=== PATIENT | male | born 1965 | race Caucasian/White ===

== ENCOUNTER → 2018-09-21 16:25 | Outpatient (CLI) | payer OTHER, SELFPAY ==
[2018-09-21 17:21] LABS: Absolute Lymphocyte Count 2.17 X10^3/ul (0.83-4.51); Absolute Neutrophil Count 7.6 X10^3/uL (2.0-7.7); Basophil# 0.08 X10^3/uL; Basophil% 0.7 % (0-1); Eosinophil# 0.47 X10^3/uL; Eosinophils% 4.3 % (0-5); Hematocrit 45.3 % (40-54); Hemoglobin 14.8 g/dl (13.0-16.5); Lymphocyte # 2.17 X10^3/ul (4.0); Lymphocyte % 19.7 % (19-41); Mean Corp Hgb Conc 32.7 g/gl (32-36); Mean Corpuscular Hgb 30.1 pg (27.0-32.0); Mean Corpuscular Volume 92.3 fL (80-94); Mean Platelet Vol. 10.5 fl (6.2-12.0); Monocyte# 0.66 X10^3/uL; Neutrophil # 7.63 X10^3/uL (2.7-7.7); Neutrophil % 69.2 % (47-70); POSITIVE COUNT NO; POSITIVE DIFFERENTIAL NO; POSITIVE MORPHOLOGY NO; Platelet Count 221 K/mm3 (150-450); RBC Distribution Width SD 51.2 fl (35.1-43.9); Red Blood Count 4.91 M/mm3 (4.6-6.2)
[2018-09-21 17:40] LABS: Vitamin B12 > 2000 pg/mL (211-911)
[2018-09-21 17:41] LABS: ALB/GLOB Ratio 0.9 RATIO (0.9-2.4); AST(SGOT) 13 U/L (15-37); Alanine Aminotransfer ALT/SGPT 25 U/L (16-61); Albumin, Serum 3.7 g/dL (3.2-5.0); Alkaline Phosphatase 81 U/L (45-117); Anion Gap 8 (5-15); BUN 20 mg/dL (7-18); BUN/Creat Ratio 23.6 RATIO (10-20); Calcium,Total 8.6 mg/dL (8.5-10.1); Chloride 105 mmol/L (98-107); Cholesterol 130 mg/dL (200); Creatinine, Serum 0.85 mg/dL (0.70-1.30); EST Glomerular Filtration Rate 100 mL/min (>60); Est Glom Filt Rate - Afr Amer 121 mL/min (>60); Globulin 4.3 g/dL (2.2-4.2); Glucose 138 mg/dL (74-106); High Density Lipoprotein 34 mg/dL; Potassium 3.9 mmol/L (3.5-5.1); Sodium Level 137 mmol/L (136-145); Thyroid Stim Hormone (TSH) 1.12 uIU/mL (0.358-3.74); Triglycerides 80 mg/dL; Very Low Density Lipoprotein 16 mg/dL (5-40)
== END ==
PROVIDERS: Family Provider Family Medicine; PCP Family Medicine; Visit Provider Family Medicine
DX: E11.9 Type 2 diabetes mellitus without complications (principal); G62.9 Polyneuropathy, unspecified; R03.0 Elevated blood-pressure reading, without diagnosis of hypertension; E66.9 Obesity, unspecified; E11.621 Type 2 diabetes mellitus with foot ulcer; L97.509 Non-pressure chronic ulcer of other part of unspecified foot with unspecified severity
CPT/HCPCS: 36415; 80053; 80061; 82607; 84443; 85025

== ENCOUNTER 2018-09-30 14:54 | Outpatient (RCR) | payer OTHER, SELFPAY | END 2018-10-15 23:59 | LOC: WC 14:54 | PROVIDERS: Family Provider Family Medicine; PCP Family Medicine; Visit Provider Nurse Practitioner Family | DX: Z09 Encounter for follow-up examination after completed treatment for conditions other than malignant neoplasm (principal) ==

== ENCOUNTER 2018-09-30 16:05 | Emergency (ER) | payer OTHER, SELFPAY ==
[2018-09-30 16:07] VITALS: BP 151/111; PULSE 111; RESP 22; RESP 24; TEMP 36.6; O2SAT 94; O2SAT 97; BMI 51.7
--- NOTE | 2018-09-30 16:38 | RAD_ITS ---
STUDY: X-RAY - RIGHT FOOT CLINICAL: Male, 53 years old. Right great toe has turned blue/purple, diabetic, multiple wounds. TECHNIQUE: 3 view(s) of the foot. COMPARISON: None. FINDINGS: There is a plantar calcaneal spur. Normal talus and remaining tarsal bones. Normal visualized subtalar, talonavicular, calcaneocuboid, tarsal and 2-5 tarsometatarsal articulations. There is osteoarthritic degenerative narrowing of the first tarsometatarsal joint space. Normal metatarsi. Normal metatarsophalangeal joint of the great toe. Normal tibial and fibular sesamoid bones. Normal interphalangeal joint of the great toe. Normal phalanges of the great toe. Normal second through fifth metatarsophalangeal joints. Mild deformity at the base of the fifth proximal phalanx suggest old healed fracture. Otherwise, normal interphalangeal joints and phalanges of the lesser toes. There is borderline soft tissue swelling at the forefoot. There is no demonstrated osseous destructive lesion or acute fracture. RAD/Foot min 3 Views IMPRESSION: 1. No acute osseous abnormality of the right foot. 2. Old healed fracture deformity at the base of the fifth proximal phalanx. 3. Degenerative narrowing of the first tarsometatarsal joint. Electronically Signed: Reji Collins MD at 17:43 EST , Service support ,
[2018-09-30 17:01] LABS: Absolute Lymphocyte Count 1.49 X10^3/ul (0.83-4.51); Absolute Neutrophil Count 8.7 X10^3/uL (2.0-7.7); Basophil# 0.07 X10^3/uL; Basophil% 0.6 % (0-1); Eosinophil# 0.38 X10^3/uL; Eosinophils% 3.3 % (0-5); Lymphocyte # 1.49 X10^3/ul (4.0); Lymphocyte % 12.8 % (19-41); Mean Corp Hgb Conc 33.3 g/gl (32-36); Mean Corpuscular Hgb 30.5 pg (27.0-32.0); Mean Corpuscular Volume 91.6 fL (80-94); Mean Platelet Vol. 10.5 fl (6.2-12.0); Monocyte# 0.93 X10^3/uL; Neutrophil # 8.74 X10^3/uL (2.7-7.7); Platelet Count 231 K/mm3 (150-450); RBC Distribution Width CV 14.9 % (11.6-14.6); RBC Distribution Width SD 48.5 fl (35.1-43.9); Red Blood Count 4.91 M/mm3 (4.6-6.2); White Blood Count 11.6 K/mm3 (4.4-11.0)
[2018-09-30 17:03] LABS: POSITIVE COUNT NO; POSITIVE DIFFERENTIAL NO; POSITIVE MORPHOLOGY NO
[2018-09-30 17:07] LABS: Erythrocyte Sedimentation Rate 29 mm/hr (0-20)
[2018-09-30 17:09] LABS: Anion Gap 8 (5-15); BUN 18 mg/dL (7-18); BUN/Creat Ratio 18.8 RATIO (10-20); Calcium,Total 8.9 mg/dL (8.5-10.1); Chloride 106 mmol/L (98-107); Creatinine, Serum 0.96 mg/dL (0.70-1.30); EST Glomerular Filtration Rate 87 mL/min (>60); Est Glom Filt Rate - Afr Amer 105 mL/min (>60); Estimated Creatinine Clearance 109.57 ml/min; Glucose 132 mg/dL (74-106); Potassium 3.8 mmol/L (3.5-5.1); Sodium Level 140 mmol/L (136-145)
[2018-09-30] MEDS: levoFLOXacin IV 750 MG/150 ML BAG 100 MG IV (18:23)
--- NOTE | 2018-09-30 18:24 | CON.PCM_ITS ---
Reason for Consult Date of Consultation: 09/30/18 Reason for Consultation: Right foot ulcers, possible infection, PVD History of Present Illness: The patient is a 53 year old gentleman with history of diabetes presented to the ER today for nonhealing right foot/ankle ulcerations with infection. Patient relates he sustained goldman on the right foot and ankle ~1 month ago, states they have not been healing. He saw Dr. Medina last week, was referred to the wound center. Today we saw the wound center, and was sent to the ER for further evaluation. It was noted in the ER he had ischemic like ulcerations, and I was called by Dr. Bolden for further evaluation. It does not appear patient has been taking good care of the wounds. Patient relates his blood sugars are controlled, relates his last ha1c was in the 5s. He relates he is a smoker, smokes 1 ppd since he was a teenager. He relates he has cramping in legs when he walks, and also at night. He relates he has no pain to the wound sites. He lives alone, but does have a sister which lives close to him. Patient does relate to history of necrotizing fascitis in his groin in the past. Past Medical History Allergies Penicillins [PCN] Allergy (Verified 09/30/18 16:05) Anaphylaxis Smoking Status: Current every day smoker Review of Systems Constitutional: Denies: Chills, Fever Cardiovascular: Denies: Chest Pain, Chest Pressure, Chest Tightness Gastrointestinal: Denies: Nausea, Vomiting Musculoskeletal: Reports: Leg Pain - cramping when walking Skin: Reports: Wounds Neurological: Reports: Numbness - Physical Exam General: Alert, Oriented x3, Cooperative, No apparent distress Extremities: Capillary Refill Less than 3 Seconds, No Calf Tenderness, Cyanosis, Diminished Peripheral Pulses, - - Right foot: Ischemic appearing ulcerations dorsal hallux, dorsal medial midfoot, and lateral ankle with dry eschars present, there is some maloder noted, there is diffuse erythema / rubor diffcult to tell if this is cellulitis vs ischemic rubor, skin is dry and atrophic in appearance, hallux is a purple color but does esteban, DP and PT pulses nonpalpable, DP pulse is audible via hand held doppler (monophasic at this time), unable to find the PT pulse via doppler. Left foot with no evidenceof ischemia or ulcerations, no cellulitis, no maloder, no blisters left foot. Toenails are thickened, dystrophic, and yellow 1-5 bilateral. Sensation diminished bilateral foot, muscle mass and tone within normal limits bilateral foot/ankle, with muscle strength intact, no pain on palpation or pain on ROM to the foot/ankle bilateral. Musculoskeletal: No Tenderness to Palpation of Joints or Extremities - bilateral foot/ankle. Psych/Mental Status: Normal Affect, Alert and oriented to time, place, person, mood and affect - Resting comfortably in bed. Vital Signs Temp Pulse Resp BP Pulse Ox 97.9 F 111 H 24 H 151/111 H 97 09/30/18 16:07 09/30/18 16:07 09/30/18 16:07 09/30/18 16:07 09/30/18 16:07 Oxygen Delivery Method Room Air Weight: 197.766 kg Body Mass Index (BMI) 51.7 Laboratory Tests Past 24 Hrs 09/30/18 09/30/18 16:48 16:48 WBC 11.6 H RBC 4.91 Hgb 15.0 Hct 45.0 MCV 91.6 MCH 30.5 MCHC 33.3 RDW 14.9 H RDW Differential 48.5 H Plt Count 231 MPV 10.5 Immature Gran % (Auto) 0.300 Neut % (Auto) 75.0 H Lymph % (Auto) 12.8 L Overton % (Auto) 8.0 Eos % (Auto) 3.3 Baso % (Auto) 0.6 Absolute Neuts (auto) 8.7 H Absolute Lymphs (auto) 1.49 Total Counted Not Reportable ESR 29 H Sodium 140 Potassium 3.8 Chloride 106 Carbon Dioxide 26.0 Anion Gap 8 BUN 18 Creatinine 0.96 Estim Creat Clear Calc 109.57 Est GFR (MDRD) Af Amer 105 Est GFR (MDRD) Non-Af 87 BUN/Creatinine Ratio 18.8 Glucose 132 H Calcium 8.9 Assessment/Plan Multiple ischemia ulcerations right foot/ankle w/ cellulitis/infection Peripheral Arterial Disease of the lower extremity Diabetes with peripheral neuropathy Chronic Tobacco Use Reviewed diagnostic date. Reviewed right foot xrays, there is no gas in the tissues. WBC is slightly elevated, there is some maloder to the wound sites, and there is concern for ischemia. The ischemia appears more chronic in nature but appears to be resulting in nonhealing wounds and now showing evidence of infection, his right great toe is also purple, ischemia may be turning more acute as well. Due to this recommend patient be admitted for further workup / evaluation, do not want to delay on this and recommended vascular surgery consultation for further evaluation. I called Dr. Hernandez, he is out of town. I did speak with Dr. Bolden about this, and patient will be transferred to outside hospital for further evaluation and management of this. Discussed with patient, and he agreed with this.
[2018-09-30 18:25] VITALS: BP 130/73; PULSE 93; RESP 20; TEMP 37.1; O2SAT 96
[2018-09-30 20:43] VITALS: BP 149/69; PULSE 96; RESP 18; O2SAT 96
[2018-09-30 21:09] VITALS: PULSE 94; RESP 18; O2SAT 96
--- NOTE | 2018-09-30 21:16 | ED.VISSUMM ---
- ER Visit Summary Date of Service: 09/30/18 Chief Complaint: Wound to right foot History of Present Illness: The patient is a [address] Medina. He has a history of type 2 diabetes and diabetic neuropathy. Reports that one month ago he was cooking and burned his right foot with grease. He did not seek medical attention until approximately a week ago when he saw Dr. Medina. He was referred to the wound clinic and saw them for the first time today. They were concerned because his great toe was white and if sent him to the emerge part for evaluation. On arrival to the emergency department the patient's toe is now purple. Patient reports that he has an occasional sharp pain that lasts seconds at a time. Serial 10 and worst and is pain-free currently. Is worsened by wearing a shoe. Is relieved by gabapentin. He denies any constitutional symptoms. No fever, chills, nausea, or vomiting. When asked about symptoms of claudication the patient does report that he has pain in his calves with ambulation for approximately 1 year. He does report that it seems to be worsening. He denies any calf or foot pain at this time. Physical Examination: Vitals: Stable. Afebrile. General: Well-nourished and well-developed. Head: Normocephalic atraumatic. Neck: Supple, no lymphadenopathy. No JVD. Nontender. Cardiovascular: Regular rate and rhythm. No murmurs. Respiratory: No respiratory distress. Clear to auscultation bilaterally. Abdominal: Soft, nontender, nondistended, normal bowel sounds. No guarding, rebound, or peritoneal signs. Back: Nontender. Extremities: There is an approximately 2 cm deep ulcer to the dorsum of his right great toe and just proximal to the head of his first metatarsal. There is slight surrounding erythema. He has a violaceous color to his great toe. There is no induration or fluctuance. There is a slight malodorous odor. Is approximately 4 cm more superficial ulcer to the right lateral malleolus. He has no palpable or dopplerable dorsalis pedis or posterior tibial pulses bilaterally. There is approximately 3-second capillary refill. Skin: Normal color, no rash. Neurologic: Alert and oriented ?3. Cranial nerves II through XII are intact. Normal strength and sensation. Psych: Normal affect. Test Results: CBC is more for white count 11.6, 7 neutrophils 75, lymphocytes 13. ESR is 29. Chem-7 more for glucose 132. Clinical Impression(s) from Imaging Studies Foot X-Ray 09/30/18 16:38 IMPRESSION: 1. No acute osseous abnormality of the right foot. 2. Old healed fracture deformity at the base of the fifth proximal phalanx. 3. Degenerative narrowing of the first tarsometatarsal joint. Electronically Signed: Reji Collins MD at 17:43 EST , Service support , Emergency Department Course and Treatment: Patient had an IV placed. He is penicillin allergic. He was given Levaquin, vancomycin, and Flagyl IV. He is resting comfortably. Treatment Plan: Patient was discussed with Dr. Babin who was in-house and saw the patient the emergency department. He is attempted to contact Dr. Hernandez without success. The patient certainly needs to see a vascular surgeon. He needs to be transferred and is asked for transfer to [facility]. He was accepted there. Disposition: Transferred in improved condition. Impression: 1. Diabetes mellitus. 2. Ulcer right great toe. 3. Ulcer right foot. 4. Ulcer right ankle. 5. Peripheral arterial disease. This note was generated with [employer] dictation software. It may contain incorrect words, spelling, and punctuation that were not noted in review of the chart prior to signing ED Disposition - Plan for ED Patient: Disposition: [facility] Chief Complaint: Wound Referrals: Yohan Medina DO [Primary Care Provider] -
== END 2018-09-30 21:18 | disposition short-term general hospital (02) ==
LOC: ED 17:01
PROVIDERS: Emergency Provider Emergency Medicine; Family Provider Family Medicine; PCP Family Medicine
DX: E11.621 Type 2 diabetes mellitus with foot ulcer (principal); L97.519 Non-pressure chronic ulcer of other part of right foot with unspecified severity; L97.319 Non-pressure chronic ulcer of right ankle with unspecified severity; E11.40 Type 2 diabetes mellitus with diabetic neuropathy, unspecified; E11.51 Type 2 diabetes mellitus with diabetic peripheral angiopathy without gangrene; M72.6 Necrotizing fasciitis; F17.210 Nicotine dependence, cigarettes, uncomplicated; Z88.0 Allergy status to penicillin
CPT/HCPCS: 73630; 80048; 85025; 85652; 96365; 96366; 96367; 99284; J7030; A4216

== ENCOUNTER → 2019-01-25 09:33 | Outpatient (CLI) | payer OTHER, SELFPAY ==
[2019-01-19 11:37] VITALS: BMI 51.7
--- NOTE | 2019-01-25 09:48 | RAD_ITS ---
STUDY: X-RAY - RIGHT ANKLE REASON FOR EXAM: Male, 53 years old. Chronic ulcer TECHNIQUE: 3 view(s) of the ankle. COMPARISON: None. FINDINGS: Diffuse soft tissue swelling with soft tissue ulceration near the distal fibula. Some cortical irregularity along the shaft of the distal fibula suggests chronic-appearing osteomyelitis. No overt osseous destruction. Ankle mortise appears intact. Prominent plantar spur. Tibiotalar degenerative changes RAD/Ankle min 3 Views IMPRESSION: Soft tissue swelling with soft tissue ulceration. Cortical irregularity at the shaft of the distal fibula suggests chronic osteomyelitis. Consider MRI to further evaluate Electronically Signed: Nicholas Calvillo DO at 11:13 EDT Tel , Service support ,
--- NOTE | 2019-01-25 09:49 | RAD_ITS ---
STUDY: X-RAY - RIGHT FOOT CLINICAL: Male, 53 years old. Chronic ulcer TECHNIQUE: 3 view(s) of the foot. COMPARISON: 09/30/2018 FINDINGS: No acute fracture or dislocation. Moderate demineralization noted throughout the foot. Diffuse forefoot soft tissue swelling. There is soft tissue ulceration medially near the remaining first digit. Status post partial amputation. At the head of the first metatarsal, there is some cortical irregularity. Unsure if this is related to post surgical change versus chronic osteomyelitis. There is also increased lucency at the base of the first metatarsal which may represent osteomyelitis. Remaining osseous structures appear uninvolved. RAD/Foot min 3 Views IMPRESSION: Findings as above; chronic osteomyelitis cannot be excluded. Recommend MRI to further evaluate Electronically Signed: Nicholas Calvillo DO at 11:14 EDT Tel , Service support ,
[2019-01-25 10:03] LABS: Absolute Lymphocyte Count 1.33 X10^3/ul (0.83-4.51); Basophil# 0.05 X10^3/uL; Basophil% 0.5 % (0-1); Eosinophil# 0.36 X10^3/uL; Eosinophils% 3.9 % (0-5); Hematocrit 43.6 % (40-54); Hemoglobin 13.6 g/dl (13.0-16.5); Lymphocyte # 1.33 X10^3/ul (4.0); Lymphocyte % 14.3 % (19-41); Mean Corp Hgb Conc 31.2 g/gl (32-36); Mean Corpuscular Hgb 28.1 pg (27.0-32.0); Mean Corpuscular Volume 90.1 fL (80-94); Monocyte# 0.51 X10^3/uL; Monocyte% 5.5 % (0-10); Neutrophil # 7.04 X10^3/uL (2.7-7.7); Neutrophil % 75.6 % (47-70); POSITIVE COUNT NO; POSITIVE DIFFERENTIAL NO; POSITIVE MORPHOLOGY NO; Platelet Count 230 K/mm3 (150-450); RBC Distribution Width CV 14.9 % (11.6-14.6); RBC Distribution Width SD 49.2 fl (35.1-43.9); Red Blood Count 4.84 M/mm3 (4.6-6.2); White Blood Count 9.3 K/mm3 (4.4-11.0)
[2019-01-25 10:39] LABS: ALB/GLOB Ratio 0.8 RATIO (0.9-2.4); AST(SGOT) 13 U/L (15-37); Alanine Aminotransfer ALT/SGPT 19 U/L (16-61); Albumin, Serum 3.6 g/dL (3.2-5.0); Alkaline Phosphatase 71 U/L (45-117); Anion Gap 10 (5-15); BUN 24 mg/dL (7-18); BUN/Creat Ratio 26.7 RATIO (10-20); Calcium,Total 8.8 mg/dL (8.5-10.1); Chloride 102 mmol/L (98-107); EST Glomerular Filtration Rate 93 mL/min (>60); Est Glom Filt Rate - Afr Amer 113 mL/min (>60); Globulin 4.5 g/dL (2.2-4.2); Glucose 160 mg/dL (74-106); Potassium 4.2 mmol/L (3.5-5.1); Protein, Total 8.1 g/dL (6.4-8.2); Sodium Level 138 mmol/L (136-145)
[2019-01-25 13:04] LABS: Hemoglobin A1c 6.4 % (4.2-6.3)
== END ==
LOC: LAB 09:38
PROVIDERS: Family Provider Family Medicine; PCP Family Medicine; Referring Provider Podiatrist; Visit Provider Podiatrist
DX: L97.909 Non-pressure chronic ulcer of unspecified part of unspecified lower leg with unspecified severity (principal); L97.309 Non-pressure chronic ulcer of unspecified ankle with unspecified severity; E11.9 Type 2 diabetes mellitus without complications; L97.519 Non-pressure chronic ulcer of other part of right foot with unspecified severity
CPT/HCPCS: 36415; 73610; 73630; 80053; 83036; 85025

== ENCOUNTER → 2019-02-08 16:31 | Outpatient (CLI) | payer OTHER, SELFPAY ==
[2019-02-02 10:53] VITALS: BMI 51.7
--- NOTE | 2019-02-08 17:30 | MRI_ITS ---
STUDY: MRI RIGHT ANKLE WITH AND WITHOUT CONTRAST REASON FOR EXAM: Lateral ankle wound for at least 4 months, evaluate extent of osteomyelitis for surgical planning. TECHNIQUE: Standarized fat and water weighted pulse sequences were obtained in all 3 orthogonal plane pre and post intravenous administration of 20 IV Dotarem. COMPARISON: Radiographs 01/25/2019. FINDINGS: Although there is considerable image degradation secondary to patient motion, there is still some diagnostically useful information available from this examination. There is edema in the subcutis adipose space with contrast enhancement and an ulcer of the lateral aspect of the ankle. There is no demonstrated focal fluid collection to suggest soft tissue abscess. There is no demonstrated abnormality of the flexor tendons. There is lateral dislocation of the peroneus longus tendon (T2 axial images 12-20). There is a small volume of fluid in the tibialis anterior tendon sheath (T2 axial images 24, 25). Normal Achilles tendon and teno-osseous insertion. There is edema in Kager's fat triangle (inversion recovery sagittal image 14). There is atrophy with fat replacement of the intrinsic muscles of the hindfoot (T2 axial images 32, 33). There is no demonstrated ligamentous injury. Normal tibiotalar articulation. There is a small posterior subtalar joint effusion (inversion recovery sagittal image 11). Normal talonavicular articulation. Normal calcaneocuboid articulation. Normal navicular-cuneiform articulations. There is bone edema of the visualized distal fibula (T2 coronal images 19-23) with decreased corresponding T1 bone marrow signal (T1 sagittal images 7-9) and contrast enhancement (postcontrast T1 coronal images 20-22) suggestive of osteomyelitis. MRI/Lower Ext Joint Only W/WO Cont IMPRESSION: Osteomyelitis of the distal fibula. Cellulitis without demonstrated soft tissue abscess. Lateral dislocation of the proximal peroneus longus tendon. Mild tibialis anterior tenosynovitis. Atrophy of the intrinsic muscles of the hindfoot. Small posterior subtalar joint effusion. Electronically Signed: Darnell Sharma MD at 8:54 EDT Tel , Service support ,
== END ==
PROVIDERS: Family Provider Family Medicine; PCP Family Medicine; Referring Provider Podiatrist; Visit Provider Podiatrist
DX: M86.9 Osteomyelitis, unspecified (principal); L97.919 Non-pressure chronic ulcer of unspecified part of right lower leg with unspecified severity; Z87.81 Personal history of (healed) traumatic fracture
CPT/HCPCS: 73723; A9575

== ENCOUNTER 2019-02-09 10:45 | Outpatient (RCR) | payer OTHER, SELFPAY ==
[2019-01-19 11:37] VITALS: BP 156/85; PULSE 86; RESP 18; TEMP 36.1; BMI 51.7
--- NOTE | 2019-01-19 16:35 | PCM.WC.PN ---
(1) Ulcer of right lower extremity with fat layer exposed Status: Chronic Current Visit: Yes Code(s): L97.912 - Non-pressure chronic ulcer of unspecified part of right lower leg with fat layer exposed (2) Ulcer of right foot with fat layer exposed Status: Chronic Current Visit: Yes Code(s): L97.512 - Non-pressure chronic ulcer of other part of right foot with fat layer exposed (3) Other specified peripheral vascular diseases Status: Chronic Current Visit: Yes Code(s): I73.89 - Other specified peripheral vascular diseases (4) Malnutrition Status: Chronic Current Visit: Yes Code(s): E46 - Unspecified protein-calorie malnutrition (5) Delayed wound healing Status: Chronic Current Visit: Yes Code(s): T14.8XXD - Other injury of unspecified body region, subsequent encounter (6) Type 2 diabetes mellitus with diabetic polyneuropathy Status: Chronic Current Visit: Yes Code(s): E11.42 - Type 2 diabetes mellitus with diabetic polyneuropathy (7) Localized edema Status: Chronic Current Visit: Yes Code(s): R60.0 - Localized edema Type of Wound Date of Service: 01/19/19 Chief Complaint: Ankle ulcer and foot ulcers History of Wound: This 53-year-old male with other comorbidities was seen in the wound care center for chronic nonhealing right foot and ankle ulcers. He had previous surgical debridement and vascular intervention performed in outside facility over a month ago. He denies redness, odor, or increased warmth. He denies fever, chill, nausea, vomiting. He denies recent injury. He change the dressing with saline wet-to-dry. He denies claudication however does not walk a significant amount. He does have some loss of sensation to his extremities. He has a previous hallux amputation. Progress of Wound: Stable - Physical Exam Vital Signs Temp Pulse Resp BP 97 F L 86 18 156/85 H 01/19/19 11:37 01/19/19 11:37 01/19/19 11:37 01/19/19 11:37 General: Alert, Oriented x3, Cooperative HEENT: Atraumatic Extremities: No cyanosis, Capillary Refill Less than 3 Seconds, No Calf Tenderness, Diminished Peripheral Pulses, Edema, - - Right hallux amputation Skin: Ulcer/ Wound - No purulence, erythema, streaking, odor, or infection. No deep tissue exposed. The ulcer beds are granular. There is no fluctuance on palpation. The skin is hairless and atrophic., - - No eschar or maceration right foot Wound Measurements and Assessment WC - Nurse 1 - General Ulcer Measurement Start: 01/19/19 11:35 Freq: Status: Active Protocol: Activity Type Activity Date Activity User E-Sign Co-Sign Detail Recorded Client Recorded Date Recorded By Document 01/19/19 11:37 [id number] 01/19/19 12:01 RB 01/19/19 11:37 Wound Center Nurse 1 [Ulcer Assessment] 3. R foot amp site 1st digit -Combined with other wound No -Current Size (cm) - Length 2.5 -Current Size (cm) - Width 0.2 -Current Size (cm) - Depth 0.2 -Total Square Cm 0.50 -Photo Taken Yes -Tunneling No -Undermining/Tunneling No -Circular Undermining No -Exudate Amt Small -Exudate Type Serosanguineous -Wound Margin Distinct, Outline Attached -Granulation Amt Medium (34-66%) -Granulation Quality [place] -Slough/Fibrin Yes -Necrosis Amt Small (1-33%) -Structure Exposed N/A -Texture (Ángela-wound Skin Appearance) Assessed -Moisture (Ángela-wound Skin Appearance Assessed ) Dry/Scaly -Color (Ángela-wound Skin Appearance) Assessed -Temperature (Ángela-wound Skin No Abnormality Appearance) (Pt Warm) -Tenderness on Palpation (Ángela-wound No Skin Appearance) -Ulcer Cleansing Rinsed/ Irrigated with Saline -Foul Odor after Cleansing No -Anesthetic Used 5% Lidocaine Gel 2. R Dorsal foot -Combined with other wound No -Current Size (cm) - Length 1.8 -Current Size (cm) - Width 2 -Current Size (cm) - Depth 0.2 -Total Square Cm 3.6 -Photo Taken Yes -Tunneling No -Undermining/Tunneling No -Circular Undermining No -Exudate Amt Small -Exudate Type Serosanguineous -Wound Margin Distinct, Outline Attached -Granulation Amt Medium (34-66%) -Granulation Quality [place] -Slough/Fibrin Yes -Necrosis Amt Small (1-33%) -Necrotic Tissue Type Adherent Slough -Structure Exposed N/A -Texture (Ángela-wound Skin Appearance) Assessed -Moisture (Ángela-wound Skin Appearance Dry/Scaly ) -Color (Ángela-wound Skin Appearance) Assessed -Temperature (Ángela-wound Skin No Abnormality Appearance) (Pt Warm) -Tenderness on Palpation (Ángela-wound No Skin Appearance) -Ulcer Cleansing Rinsed/ Irrigated with Saline -Foul Odor after Cleansing No -Anesthetic Used 5% Lidocaine Gel 1. R lateral ankle -Combined with other wound No -Current Size (cm) - Length 8 -Current Size (cm) - Width 6.1 -Current Size (cm) - Depth 0.4 -Total Square Cm 48.8 -Photo Taken Yes -Tunneling No -Undermining/Tunneling No -Circular Undermining No -Exudate Amt Small -Exudate Type Serosanguineous -Wound Margin Thickened & Rolled Under -Granulation Amt Medium (34-66%) -Granulation Quality [place] -Slough/Fibrin Yes -Necrosis Amt Medium (34-66%) -Necrotic Tissue Type Adherent Slough -Structure Exposed N/A -Texture (Ángela-wound Skin Appearance) Assessed -Moisture (Ángela-wound Skin Appearance Dry/Scaly ) -Color (Ángela-wound Skin Appearance) Assessed -Temperature (Ángela-wound Skin No Abnormality Appearance) (Pt Warm) -Tenderness on Palpation (Ángela-wound No Skin Appearance) -Ulcer Cleansing Rinsed/ Irrigated with Saline -Foul Odor after Cleansing No -Anesthetic Used 5% Lidocaine Gel [Edema Assessment] -Lower Limb Edema Present Yes -Right Calf (cm) 45.5 -Right Ankle (cm) 29.2 -Left Calf (cm) 45 -Left Ankle (cm) 28.5 WC - Nurse 2 - General Ulcer CM Notes Start: 01/19/19 11:35 Freq: Status: Active Protocol: Activity Type Activity Date Activity User E-Sign Co-Sign Detail Recorded Client Recorded Date Recorded By Document 01/19/19 12:14 AN [id number] 01/19/19 12:25 AN 01/19/19 12:14 Wound Center Nurse 2 [Procedure/Treatment] 3. R foot amp site 1st digit -Time 12:18 -Correct Patient Yes -Correct Side, Site, Position Yes -Correct Procedure Yes -Procedure Performed Yes -Type of Procedure Debridement -Clinical Debridement Subcutaneous -Post Debridement Size (cm) - Length 2.6 -Post Debridement Size (cm) - Width 0.3 -Post Debridement Size (cm) - Depth 0.2 -Total Square Cm 0.78 -Wound/Ulcer Outcome Not Healed -Ulcer Cleansing Rinsed/ Irrigated with Saline -Foul Odor after Cleansing No -Bioengineered Tissue No -Bleeding Controlled with Pressure -Offloading Yes -Type of Offloading Surgical Shoe -Treatment Response Procedure Tolerated Well 2. R Dorsal foot -Time 12:19 -Correct Patient Yes -Correct Side, Site, Position Yes -Correct Procedure Yes -Procedure Performed Yes -Type of Procedure Debridement -Clinical Debridement Subcutaneous -Post Debridement Size (cm) - Length 1.9 -Post Debridement Size (cm) - Width 2.1 -Post Debridement Size (cm) - Depth 0.2 -Total Square Cm 3.99 -Wound/Ulcer Outcome Not Healed -Ulcer Cleansing Rinsed/ Irrigated with Saline -Foul Odor after Cleansing No -Bioengineered Tissue No -Bleeding Controlled with Pressure -Offloading Yes -Type of Offloading Surgical Shoe -Treatment Response Procedure Tolerated Well 1. R lateral ankle -Time 12:19 -Correct Patient Yes -Correct Side, Site, Position Yes -Correct Procedure Yes -Procedure Performed Yes -Type of Procedure Debridement -Clinical Debridement Subcutaneous -Post Debridement Size (cm) - Length 8.1 -Post Debridement Size (cm) - Width 6.2 -Post Debridement Size (cm) - Depth 0.4 -Total Square Cm 50.22 -Wound/Ulcer Outcome Not Healed -Ulcer Cleansing Rinsed/ Irrigated with Saline -Foul Odor after Cleansing No -Bioengineered Tissue No -Bleeding Controlled with Pressure -Offloading Yes -Type of Offloading Surgical Shoe -Treatment Response Procedure Tolerated Well [See Physician Procedure note for Specifics] Musculoskeletal: No Tenderness to Palpation of Joints or Extremities, Muscle Wasting Neurological: - - Lack of normal epicritic sensation to light touch consistent with neuropathy Psych/Mental Status: Normal Affect, Appropriate Debridement Note Post-Debridement Measurements/Treatment WC - Nurse 2 - General Ulcer CM Notes Start: 01/19/19 11:35 Freq: Status: Active Protocol: Activity Type Activity Date Activity User E-Sign Co-Sign Detail Recorded Client Recorded Date Recorded By Document 01/19/19 12:14 AN [id number] 01/19/19 12:25 AN 01/19/19 12:14 Wound Center Nurse 2 3. R foot amp site 1st digit -Time 12:18 -Correct Patient Yes -Correct Side, Site, Position Yes -Correct Procedure Yes -Procedure Performed Yes -Type of Procedure Debridement -Clinical Debridement Subcutaneous -Post Debridement Size (cm) - Length 2.6 -Post Debridement Size (cm) - Width 0.3 -Post Debridement Size (cm) - Depth 0.2 -Total Square Cm 0.78 -Wound/Ulcer Outcome Not Healed -Ulcer Cleansing Rinsed/ Irrigated with Saline -Foul Odor after Cleansing No -Bioengineered Tissue No -Bleeding Controlled with Pressure -Offloading Yes -Type of Offloading Surgical Shoe -Treatment Response Procedure Tolerated Well 2. R Dorsal foot -Time 12:19 -Correct Patient Yes -Correct Side, Site, Position Yes -Correct Procedure Yes -Procedure Performed Yes -Type of Procedure Debridement -Clinical Debridement Subcutaneous -Post Debridement Size (cm) - Length 1.9 -Post Debridement Size (cm) - Width 2.1 -Post Debridement Size (cm) - Depth 0.2 -Total Square Cm 3.99 -Wound/Ulcer Outcome Not Healed -Ulcer Cleansing Rinsed/ Irrigated with Saline -Foul Odor after Cleansing No -Bioengineered Tissue No -Bleeding Controlled with Pressure -Offloading Yes -Type of Offloading Surgical Shoe -Treatment Response Procedure Tolerated Well 1. R lateral ankle -Time 12:19 -Correct Patient Yes -Correct Side, Site, Position Yes -Correct Procedure Yes -Procedure Performed Yes -Type of Procedure Debridement -Clinical Debridement Subcutaneous -Post Debridement Size (cm) - Length 8.1 -Post Debridement Size (cm) - Width 6.2 -Post Debridement Size (cm) - Depth 0.4 -Total Square Cm 50.22 -Wound/Ulcer Outcome Not Healed -Ulcer Cleansing Rinsed/ Irrigated with Saline -Foul Odor after Cleansing No -Bioengineered Tissue No -Bleeding Controlled with Pressure -Offloading Yes -Type of Offloading Surgical Shoe -Treatment Response Procedure Tolerated Well Wound debrided: medial forefoot Laterality: Right Wound Grade/Stage: grade 1 Type of Debridement: Excisional debridement Anesthesia Used: 5% Lidocaine Gel Depth: in the subcutaneous layer Percentage of wound debrided: 100 Instrument Used: #15 blade Tissue Removed: fibrous, devitalized subcutaneous, biofilm, slough Severity: Fat Layer Exposed Amount of bleeding with debridement: Mild Bleeding Controlled with: Pressure Patient tolerated procedure well - Additional Wound Wound debrided: dorsal foot Laterality: Right Wound Grade/Stage: grade 1 Type of Debridement: Excisional debridement Anesthesia Used: 5% Lidocaine Gel Depth: in the subcutaneous layer Percentage of wound debrided: 100 Instrument Used: #15 blade Tissue Removed: fibrous, devitalized subcutaneous, biofilm, slough Severity: Fat Layer Exposed Amount of bleeding with debridement: Mild Bleeding Controlled with: Pressure Patient tolerated procedure: Patient tolerated procedure well - Additional Wound Wound debrided: lateral ankle Laterality: Right Wound Grade/Stage: grade 1 Type of Debridement: Excisional debridement Anesthesia Used: 5% Lidocaine Gel Depth: in the subcutaneous layer Percentage of wound debrided: 100 Instrument Used: #15 blade Tissue Removed: fibrous, devitalized subcutaneous, biofilm, slough Severity: Fat Layer Exposed Amount of bleeding with debridement: Mild Bleeding Controlled with: Pressure Patient tolerated procedure: Patient tolerated procedure well Assessment/Plan Active Problems Ulcer of right lower extremity with fat layer exposed (Chronic) Ulcer of right foot with fat layer exposed (Chronic) Other specified peripheral vascular diseases (Chronic) Malnutrition (Chronic) Delayed wound healing (Chronic) Type 2 diabetes mellitus with diabetic polyneuropathy (Chronic) Localized edema (Chronic) Assessment: 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 Dorsal right foot ulcer, grade 1 in no infection. Right lateral ankle ulcer, grade 1 in no infection. Diabetes with neuropathy. Peripheral vascular disease. Delayed healing. Malnutrition Plan: I reviewed and discussed his case today. I recommended medical record release signed to obtain his previous vascular interventions I understand his lower extremity perfusion. Right foot and ankle x-rays an updated CBC, CMP, hemoglobin A1c labs were ordered to better understand his medical stability. Subcutaneous ulcer excisional debridement was performed as noted in the clinical panel. Aquacel Ag and gauze were applied. He was advised to changes every 1-2 days. He was reassured no acute signs of infection are noted at this time. It is noted this is a chronic ulcer and I recommend advanced wound healing. He understands operating room application of advanced wound care products such as epi cord and amnio fill will be considered. I would like to better understand confirm his vascular status prior to proceeding. Recommend nutritional supplementation optimize healing; a new prescription for Osito nutritional supplement was provided. To avoid pressure on the ulcer sites by not lying on the right lateral ankle site. I advised him to wear a surgical shoe to keep pressure off of his foot ulcer sites as well. To follow-up with the wound healing center in 1 week or call sooner if he has any questions or concerns.
[2019-01-26 12:05] VITALS: BP 145/87; PULSE 98; RESP 18; TEMP 36.5; BMI 51.7
--- NOTE | 2019-01-26 14:55 | PCM.WC.PN ---
(1) Ulcer of right lower extremity with fat layer exposed Status: Chronic Current Visit: Yes Code(s): L97.912 - Non-pressure chronic ulcer of unspecified part of right lower leg with fat layer exposed (2) Ulcer of right foot with fat layer exposed Status: Chronic Current Visit: Yes Code(s): L97.512 - Non-pressure chronic ulcer of other part of right foot with fat layer exposed (3) Other specified peripheral vascular diseases Status: Chronic Current Visit: Yes Code(s): I73.89 - Other specified peripheral vascular diseases (4) Malnutrition Status: Chronic Current Visit: Yes Code(s): E46 - Unspecified protein-calorie malnutrition (5) Delayed wound healing Status: Chronic Current Visit: Yes Code(s): T14.8XXD - Other injury of unspecified body region, subsequent encounter (6) Type 2 diabetes mellitus with diabetic polyneuropathy Status: Chronic Current Visit: Yes Code(s): E11.42 - Type 2 diabetes mellitus with diabetic polyneuropathy (7) Localized edema Status: Chronic Current Visit: Yes Code(s): R60.0 - Localized edema Type of Wound Date of Service: 01/26/19 Chief Complaint: Ankle ulcer and foot ulcers History of Wound: This 53-year-old male with other comorbidities was seen in the wound care center for chronic nonhealing right foot and ankle ulcers. He had previous surgical debridement and vascular intervention performed in outside facility over a month ago. He denies redness, odor, or increased warmth. He denies fever, chill, nausea, vomiting. He denies recent injury. He change the dressing with Aquacel Ag this past week. He denies claudication however does not walk a significant amount. He did obtain his lab work as ordered and his medical records have arrived from [facility]. It is noted he did have surgery done on October 12, 2018 including a right femoral and posterior tibial artery bypass with a saphenous vein graft involvement. He continues to follow-up with his vascular surgeon at the same location. He has had previous x-rays and MRIs. His previous MRI from October 02, 2018 did not demonstrate osseous destruction to the lateral distal fibula there was peroneal tenosynovitis. He is amenable to proceed forward with operating room debridement and advance wound care product application. Progress of Wound: Stable - Physical Exam Vital Signs Temp Pulse Resp BP 97.7 F L 98 18 145/87 H 01/26/19 12:05 01/26/19 12:05 01/26/19 12:05 01/26/19 12:05 General: Alert, Oriented x3, Cooperative Extremities: No cyanosis, Capillary Refill Less than 3 Seconds, No Calf Tenderness - Negative Magalis breath and bilateral, Diminished Peripheral Pulses, Edema - Bilateral, Tenderness - Tenderness with ulcer manipulation, - - Right heel hallux amputation. Compartments remain soft right lower extremity palpation Skin: Ulcer/ Wound - No purulence, erythema, streaking, odor, infection, exposed bone or tendon right lower extremity. It is noted the bypass site has remained granular based ulcer with serosanguineous drainage only. The peripheral skin is hairless and atrophic. Wound Measurements and Assessment WC - Nurse 1 - General Ulcer Measurement Start: 01/19/19 11:35 Freq: Status: Active Protocol: Activity Type Activity Date Activity User E-Sign Co-Sign Detail Recorded Client Recorded Date Recorded By Document 01/26/19 12:05 [facility] [id number] 01/26/19 12:09 [facility] 01/26/19 12:05 Wound Center Nurse 1 [Ulcer Assessment] 3. R foot amp site 1st digit -Combined with other wound No -Current Size (cm) - Length 0.4 -Current Size (cm) - Width 3.1 -Current Size (cm) - Depth 0.3 -Total Square Cm 1.24 -Photo Taken No -Epithelialization None Present -Tunneling No -Undermining/Tunneling No -Circular Undermining No -Exudate Amt Small -Exudate Type Serosanguineous -Wound Margin Distinct, Outline Attached -Granulation Amt Small (1-33%) -Granulation Quality [place] -Slough/Fibrin Yes -Necrosis Amt Large (67-100%) -Necrotic Tissue Type Adherent Slough -Texture (Ángela-wound Skin Appearance) Callus Scarring -Moisture (Ángela-wound Skin Appearance Dry/Scaly ) -Color (Ángela-wound Skin Appearance) Assessed -Temperature (Ángela-wound Skin No Abnormality Appearance) (Pt Warm) -Tenderness on Palpation (Ángela-wound No Skin Appearance) -Ulcer Cleansing Rinsed/ Irrigated with Saline -Foul Odor after Cleansing No -Anesthetic Used 4% Lidocaine Solution 2. R Dorsal foot -Combined with other wound No -Current Size (cm) - Length 2.9 -Current Size (cm) - Width 2 -Current Size (cm) - Depth 0.2 -Total Square Cm 5.8 -Photo Taken No -Epithelialization None Present -Tunneling No -Undermining/Tunneling No -Circular Undermining No -Exudate Amt Small -Exudate Type Serosanguineous -Wound Margin Distinct, Outline Attached -Granulation Amt Small (1-33%) -Granulation Quality [place] -Slough/Fibrin Yes -Necrosis Amt Large (67-100%) -Necrotic Tissue Type Adherent Slough -Texture (Ángela-wound Skin Appearance) Scarring -Moisture (Ángela-wound Skin Appearance Dry/Scaly ) -Color (Ángela-wound Skin Appearance) Assessed -Temperature (Ángela-wound Skin No Abnormality Appearance) (Pt Warm) -Tenderness on Palpation (Ángela-wound No Skin Appearance) -Ulcer Cleansing Rinsed/ Irrigated with Saline -Foul Odor after Cleansing No -Anesthetic Used 4% Lidocaine Solution 1. R lateral ankle -Combined with other wound No -Current Size (cm) - Length 8 -Current Size (cm) - Width 5.7 -Current Size (cm) - Depth 0.2 -Total Square Cm 45.6 -Photo Taken No -Epithelialization None Present -Tunneling No -Undermining/Tunneling No -Circular Undermining No -Exudate Amt Medium -Exudate Type Serosanguineous -Wound Margin Distinct, Outline Attached -Granulation Amt Medium (34-66%) -Granulation Quality [place] -Slough/Fibrin Yes -Necrosis Amt Medium (34-66%) -Necrotic Tissue Type Adherent Slough -Texture (Ángela-wound Skin Appearance) Scarring -Moisture (Ángela-wound Skin Appearance Dry/Scaly ) -Color (Ángela-wound Skin Appearance) Assessed -Temperature (Ángela-wound Skin No Abnormality Appearance) (Pt Warm) -Tenderness on Palpation (Ángela-wound No Skin Appearance) -Ulcer Cleansing Rinsed/ Irrigated with Saline -Foul Odor after Cleansing No -Anesthetic Used 5% Lidocaine Gel [Edema Assessment] -Lower Limb Edema Present Yes -Right Calf (cm) 48.2 -Right Ankle (cm) 30 WC - Nurse 2 - General Ulcer CM Notes Start: 01/19/19 11:35 Freq: Status: Active Protocol: Activity Type Activity Date Activity User E-Sign Co-Sign Detail Recorded Client Recorded Date Recorded By Document 01/26/19 12:13 AN [id number] 01/26/19 12:21 AN 01/26/19 12:13 Wound Center Nurse 2 [Procedure/Treatment] 3. R foot amp site 1st digit -Time 12:13 -Correct Patient Yes -Correct Side, Site, Position Yes -Correct Procedure Yes -Procedure Performed Yes -Type of Procedure Debridement -Clinical Debridement Subcutaneous -Post Debridement Size (cm) - Length 0.5 -Post Debridement Size (cm) - Width 3.2 -Post Debridement Size (cm) - Depth 0.3 -Total Square Cm 1.60 -Wound/Ulcer Outcome Not Healed -Ulcer Cleansing Rinsed/ Irrigated with Saline -Foul Odor after Cleansing No -Bioengineered Tissue No -Bleeding Controlled with Pressure -Offloading Yes -Type of Offloading Surgical Shoe -Treatment Response Procedure Tolerated Well 2. R Dorsal foot -Time 12:15 -Correct Patient Yes -Correct Side, Site, Position Yes -Correct Procedure Yes -Procedure Performed Yes -Type of Procedure Debridement -Clinical Debridement Subcutaneous -Post Debridement Size (cm) - Length 3.0 -Post Debridement Size (cm) - Width 2.1 -Post Debridement Size (cm) - Depth 0.2 -Total Square Cm 6.30 -Wound/Ulcer Outcome Not Healed -Ulcer Cleansing Rinsed/ Irrigated with Saline -Foul Odor after Cleansing No -Bioengineered Tissue No -Bleeding Controlled with Pressure -Offloading Yes -Type of Offloading Surgical Shoe -Treatment Response Procedure Tolerated Well 1. R lateral ankle -Time 12:16 -Correct Patient Yes -Correct Side, Site, Position Yes -Correct Procedure Yes -Procedure Performed Yes -Type of Procedure Debridement -Clinical Debridement Subcutaneous -Post Debridement Size (cm) - Length 8.1 -Post Debridement Size (cm) - Width 5.8 -Post Debridement Size (cm) - Depth 0.2 -Total Square Cm 46.98 -Wound/Ulcer Outcome Not Healed -Ulcer Cleansing Rinsed/ Irrigated with Saline -Foul Odor after Cleansing No -Bioengineered Tissue No -Bleeding Controlled with Pressure -Offloading Yes -Type of Offloading Surgical Shoe -Treatment Response Procedure Tolerated Well [See Physician Procedure note for Specifics] Pain Scale: 0-10 Numeric [Pain] -Is Patient Pain Free? Yes Musculoskeletal: No Tenderness to Palpation of Joints or Extremities, Muscle Wasting Neurological: - - Lack of normal epicritic sensation light touch bilateral lower extremities consistent with neuropathy Psych/Mental Status: Normal Affect, Appropriate Debridement Note Post-Debridement Measurements/Treatment WC - Nurse 2 - General Ulcer CM Notes Start: 01/19/19 11:35 Freq: Status: Active Protocol: Activity Type Activity Date Activity User E-Sign Co-Sign Detail Recorded Client Recorded Date Recorded By Document 01/19/19 12:14 AN [id number] 01/19/19 12:25 AN Document 01/26/19 12:13 AN [id number] 01/26/19 12:21 AN 01/19/19 01/26/19 12:14 12:13 Wound Center Nurse 2 3. R foot amp site 1st digit -Time 12:18 12:13 -Correct Patient Yes Yes -Correct Side, Site, Position Yes Yes -Correct Procedure Yes Yes -Procedure Performed Yes Yes -Type of Procedure Debridement Debridement -Clinical Debridement Subcutaneous Subcutaneous -Post Debridement Size (cm) - Length 2.6 0.5 -Post Debridement Size (cm) - Width 0.3 3.2 -Post Debridement Size (cm) - Depth 0.2 0.3 -Total Square Cm 0.78 1.60 -Wound/Ulcer Outcome Not Healed Not Healed -Ulcer Cleansing Rinsed/ Rinsed/ Irrigated with Irrigated with Saline Saline -Foul Odor after Cleansing No No -Bioengineered Tissue No No -Bleeding Controlled with Pressure Pressure -Offloading Yes Yes -Type of Offloading Surgical Shoe Surgical Shoe -Treatment Response Procedure Procedure Tolerated Well Tolerated Well 2. R Dorsal foot -Time 12:19 12:15 -Correct Patient Yes Yes -Correct Side, Site, Position Yes Yes -Correct Procedure Yes Yes -Procedure Performed Yes Yes -Type of Procedure Debridement Debridement -Clinical Debridement Subcutaneous Subcutaneous -Post Debridement Size (cm) - Length 1.9 3.0 -Post Debridement Size (cm) - Width 2.1 2.1 -Post Debridement Size (cm) - Depth 0.2 0.2 -Total Square Cm 3.99 6.30 -Wound/Ulcer Outcome Not Healed Not Healed -Ulcer Cleansing Rinsed/ Rinsed/ Irrigated with Irrigated with Saline Saline -Foul Odor after Cleansing No No -Bioengineered Tissue No No -Bleeding Controlled with Pressure Pressure -Offloading Yes Yes -Type of Offloading Surgical Shoe Surgical Shoe -Treatment Response Procedure Procedure Tolerated Well Tolerated Well 1. R lateral ankle -Time 12:19 12:16 -Correct Patient Yes Yes -Correct Side, Site, Position Yes Yes -Correct Procedure Yes Yes -Procedure Performed Yes Yes -Type of Procedure Debridement Debridement -Clinical Debridement Subcutaneous Subcutaneous -Post Debridement Size (cm) - Length 8.1 8.1 -Post Debridement Size (cm) - Width 6.2 5.8 -Post Debridement Size (cm) - Depth 0.4 0.2 -Total Square Cm 50.22 46.98 -Wound/Ulcer Outcome Not Healed Not Healed -Ulcer Cleansing Rinsed/ Rinsed/ Irrigated with Irrigated with Saline Saline -Foul Odor after Cleansing No No -Bioengineered Tissue No No -Bleeding Controlled with Pressure Pressure -Offloading Yes Yes -Type of Offloading Surgical Shoe Surgical Shoe -Treatment Response Procedure Procedure Tolerated Well Tolerated Well Pain Scale: 0-10 Numeric Is Patient Pain Free? Yes Wound debrided: lateral ankle Laterality: Right Wound Grade/Stage: grade 1 Type of Debridement: Excisional debridement Anesthesia Used: 5% Lidocaine Gel Depth: in the subcutaneous layer Percentage of wound debrided: 100 Instrument Used: #15 blade Tissue Removed: fibrous, devitalized subcutaneous, biofilm, slough Severity: Fat Layer Exposed Amount of bleeding with debridement: Mild Bleeding Controlled with: Pressure Patient tolerated procedure well - Additional Wound Wound debrided: medial forefoot Laterality: Right Wound Grade/Stage: grade 1 Type of Debridement: Excisional debridement Anesthesia Used: 5% Lidocaine Gel Depth: in the subcutaneous layer Percentage of wound debrided: 100 Instrument Used: #15 blade Tissue Removed: fibrous, devitalized subcutaneous, biofilm, slough Severity: Fat Layer Exposed Amount of bleeding with debridement: Mild Bleeding Controlled with: Pressure Patient tolerated procedure: Patient tolerated procedure well - Additional Wound Wound debrided: medial proximal leg (bypass site) Laterality: Right Wound Grade/Stage: grade 1 Type of Debridement: Excisional debridement Anesthesia Used: 5% Lidocaine Gel Depth: in the subcutaneous layer Percentage of wound debrided: 100 Instrument Used: #15 blade Tissue Removed: fibrous, devitalized subcutaneous, biofilm, slough Severity: Fat Layer Exposed Amount of bleeding with debridement: Mild Bleeding Controlled with: Pressure Patient tolerated procedure: Patient tolerated procedure well - Additional Wound Wound debrided: dorsal foot Laterality: Right Wound Grade/Stage: grade 1 Type of Debridement: Excisional debridement Anesthesia Used: 5% Lidocaine Gel Depth: in the subcutaneous layer Percentage of wound debrided: 100 Instrument Used: #15 blade Tissue Removed: fibrous, devitalized subcutaneous, biofilm, slough Severity: Fat Layer Exposed Amount of bleeding with debridement: Mild Bleeding Controlled with: Pressure Patient tolerated procedure: Patient tolerated procedure well Assessment/Plan Active Problems Ulcer of right lower extremity with fat layer exposed (Chronic) Ulcer of right foot with fat layer exposed (Chronic) Other specified peripheral vascular diseases (Chronic) Malnutrition (Chronic) Delayed wound healing (Chronic) Type 2 diabetes mellitus with diabetic polyneuropathy (Chronic) Localized edema (Chronic) Assessment: 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 Dorsal right foot ulcer, grade 1 in no infection. Right lateral ankle ulcer, grade 1 in no infection. Diabetes with neuropathy. Peripheral vascular disease. Delayed healing. Malnutrition Plan: I reviewed and discussed his case today. Subcutaneous excisional debridement was performed in the clinical panel. Right foot and ankle x-rays an updated CBC, CMP, hemoglobin A1c labs were ordered to better understand his medical stability. X-rays images were reviewed and there is very subtle cortical thinning to the distal lateral fibula and this is concerning for bone involvement and remain possible chronic osteomyelitis due to the chronicity of this open adjacent wound. Although his MRI was negative for osteomyelitis when obtained in September 2018, I do recommend an updated MRI to evaluate for this now that has been approximately 4 months timeframe. Hydrogel with overlying Adaptic was applied to the site to maintain a better moist environment to the lateral ankle. Aquacel Ag and gauze were applied to the other sites. To change dressing daily. He was reassured no acute signs of infection are noted at this time. It is noted this is a chronic ulcer and I recommend advanced wound healing. Labs are reviewed and he has a white blood cell count of 9.3 and a sedimentation rate of 29. His hemoglobin A1c was also noted to be 6.4%. His vascular surgery notes including operation report were reviewed and he has a follow-up this next week. I recommend continued follow-up and medical records will be further requested. I also recommend nutritional supplementation optimize healing; a new prescription for Osito nutritional supplement was provided. To avoid pressure on the ulcer sites by not lying on the right lateral ankle site. I advised him to wear a surgical shoe to keep pressure off of his foot ulcer sites as well. I recommend operating room versa jet debridement, application of advanced wound care products such as epi cord and amnio fill, and bone biopsy versus debridement pending updated MRI results. I also recommend application of wound VAC. I would also like to consider debriding and applying his advance product to his nonhealing bypass site and I will discuss this option with his surgeon. The preoperative indications, planned procedure, possible benefits, risks, complications, and anticipated healing time and management were discussed in detail with the patient. He understands and elects to proceed with surgery at this time. No guarantees are made. The informed surgical consent will need to be obtained. He understands he is required to have a clearance and history and physical performed by his primary care physician. Nurse Park, surgical services asst, will contact him to facilitate organizing his updated MRI and surgery scheduling. He understands this is a serial process and this is for limb salvage. This is medically necessary. Answered all of his questions. Pending the MRI results we will also consider if he is a candidate for hyperbaric oxygen therapy. To follow-up with the wound healing center in 1 week or call sooner if he has any questions or concerns.
--- NOTE | 2019-01-26 14:59 | PN.PCM_ITS ---
(1) Ulcer of right lower extremity with fat layer exposed Status: Chronic Current Visit: Yes Code(s): L97.912 - Non-pressure chronic ulcer of unspecified part of right lower leg with fat layer exposed (2) Ulcer of right foot with fat layer exposed Status: Chronic Current Visit: Yes Code(s): L97.512 - Non-pressure chronic ulcer of other part of right foot with fat layer exposed (3) Other specified peripheral vascular diseases Status: Chronic Current Visit: Yes Code(s): I73.89 - Other specified perip heral vascular diseases (4) Malnutrition Status: Chronic Current Visit: Yes Code(s): E46 - Unspecified protein- calorie malnutrition (5) Delayed wound healing Status: Chronic Current Visit: Yes Code(s): T14.8XXD - Other injury of unspecified body region, subsequent encounter (6) Type 2 diabetes mellitus with diabetic polyneuropathy Status: Chronic Current Visit: Yes Code(s): E11.42 - Type 2 diabetes mellitus with diabetic polyneuropathy (7) Localized edema Status: Chronic Current Visit: Yes Code(s): R60.0 - Localized edema Type of Wound Date of Service: 01/26/19 Chief Complaint: Ankle ulcer and foot ulcers History of Wound: This 53-year-old male with other comorbidities was seen in the wound care center for chronic nonhealing right foot and ankle ulcers. He had previous surgical debridement and vascular intervention performed in outside facility over a month ago. He denies redness, odor, or increased warmth. He denies fever, chill, nausea, vomiting. He denies recent injury. He change the dressing with Aquacel Ag this past week. He denies claudication however does not walk a significant amount. He did obtain his lab work as ordered and his medical records have arrived from [facility]. It is noted he did have surgery done on October 12, 2018 including a right femoral and posterior tibial artery bypass with a saphenous vein graft involvement. He continues to follow- up with his vascular surgeon at the same location. He has had previous x-rays and MRIs. His previous MRI from October 02, 2018 did not demonstrate osseous destruction to the lateral distal fibula there was peroneal tenosynovitis. He is amenable to proceed forward with operating room debridement and advance wound care product application. Progress of Wound: Stable - Physical Exam Vital Signs Temp Pulse Resp BP 97.7 F L 98 18 145/87 H 01/26/19 12:05 01/26/19 12:05 01/26/19 12:05 01/26/19 12:05 General: Alert, Oriented x3, Cooperative Extremities: No cyanosis, Capillary Refill Less than 3 Seconds, No Calf Tenderness - Negative Magalis breath and bilateral, Diminished Peripheral Pulses, Edema - Bilateral, Tenderness - Tenderness with ulcer manipulation, - - Right heel hallux amputation. Compartments remain soft right lower extremity palpation Skin: Ulcer/ Wound - No purulence, erythema, streaking, odor, infection, exposed bone or tendon right lower extremity. It is noted the bypass site has remained granular based ulcer with serosanguineous drainage only. The peripheral skin is hairless and atrophic. Wound Measurements and Assessment WC - Nurse 1 - General Ulcer Measurement Start: 01/19/19 11:35 Freq: Status: Active Protocol: Activity Type Activity Date Activity User E-Sign Co-Sign Detail Recorded Client Recorded Date Recorded By Document 01/26/19 12:05 [facility] [id number] 01/26/19 12:09 [facility] 01/26/19 12:05 Wound Center Nurse 1 [Ulcer Assessment] 3. R foot amp site 1st digit -Combined with other wound No -Current Size (cm) - Length 0.4 -Current Size (cm) - Width 3.1 -Current Size (cm) - Depth 0.3 -Total Square Cm 1.24 -Photo Taken No -Epithelialization None Present -Tunneling No -Undermining/Tunneling No -Circular Undermining No -Exudate Amt Small -Exudate Type Serosanguineous -Wound Margin Distinct, Outline Attached -Granulation Amt Small (1-33%) -Granulation Quality [place] -Slough/Fibrin Yes -Necrosis Amt Large (67-100%) -Necrotic Tissue Type Adherent Slough -Texture (Ángela-wound Skin Appearance) Callus Scarring -Moisture (Ángela-wound Skin Appearance Dry/Scaly ) -Color (Ángela-wound Skin Appearance) Assessed -Temperature (Ángela-wound Skin No Abnormality Appearance) (Pt Warm) -Tenderness on Palpation (Ángela-wound No Skin Appearance) -Ulcer Cleansing Rinsed/ Irrigated with Saline -Foul Odor after Cleansing No -Anesthetic Used 4% Lidocaine Solution 2. R Dorsal foot -Combined with other wound No -Current Size (cm) - Length 2.9 -Current Size (cm) - Width 2 -Current Size (cm) - Depth 0.2 -Total Square Cm 5.8 -Photo Taken No -Epithelialization None Present -Tunneling No -Undermining/Tunneling No -Circular Undermining No -Exudate Amt Small -Exudate Type Serosanguineous -Wound Margin Distinct, Outline Attached -Granulation Amt Small (1-33%) -Granulation Quality [place] -Slough/Fibrin Yes -Necrosis Amt Large (67-100%) -Necrotic Tissue Type Adherent Slough -Texture (Ángela-wound Skin Appearance) Scarring -Moisture (Ángela-wound Skin Appearance Dry/Scaly ) -Color (Ángela-wound Skin Appearance) Assessed -Temperature (Ángela-wound Skin No Abnormality Appearance) (Pt Warm) -Tenderness on Palpation (Ángela-wound No Skin Appearance) -Ulcer Cleansing Rinsed/ Irrigated with Saline -Foul Odor after Cleansing No -Anesthetic Used 4% Lidocaine Solution 1. R lateral ankle -Combined with other wound No -Current Size (cm) - Length 8 -Current Size (cm) - Width 5.7 -Current Size (cm) - Depth 0.2 -Total Square Cm 45.6 -Photo Taken No -Epithelialization None Present -Tunneling No -Undermining/Tunneling No -Circular Undermining No -Exudate Amt Medium -Exudate Type Serosanguineous -Wound Margin Distinct, Outline Attached -Granulation Amt Medium (34-66%) -Granulation Quality [place] -Slough/Fibrin Yes -Necrosis Amt Medium (34-66%) -Necrotic Tissue Type Adherent Slough -Texture (Ángela-wound Skin Appearance) Scarring -Moisture (Ángela-wound Skin Appearance Dry/Scaly ) -Color (Ángela-wound Skin Appearance) Assessed -Temperature (Ángela-wound Skin No Abnormality Appearance) (Pt Warm) -Tenderness on Palpation (Ángela-wound No Skin Appearance) -Ulcer Cleansing Rinsed/ Irrigated with Saline -Foul Odor after Cleansing No -Anesthetic Used 5% Lidocaine Gel [Edema Assessment] -Lower Limb Edema Present Yes -Right Calf (cm) 48.2 -Right Ankle (cm) 30 WC - Nurse 2 - General Ulcer CM Notes Start: 01/19/19 11:35 Freq: Status: Active Protocol: Activity Type Activity Date Activity User E-Sign Co-Sign Detail Recorded Client Recorded Date Recorded By Document 01/26/19 12:13 AN [id number] 01/26/19 12:21 AN 01/26/19 12:13 Wound Center Nurse 2 [Procedure/Treatment] 3. R foot amp site 1st digit -Time 12:13 -Correct Patient Yes -Correct Side, Site, Position Yes -Correct Procedure Yes -Procedure Performed Yes -Type of Procedure Debridement -Clinical Debridement Subcutaneous -Post Debridement Size (cm) - Length 0.5 -Post Debridement Size (cm) - Width 3.2 -Post Debridement Size (cm) - Depth 0.3 -Total Square Cm 1.60 -Wound/Ulcer Outcome Not Healed -Ulcer Cleansing Rinsed/ Irrigated with Saline -Foul Odor after Cleansing No -Bioengineered Tissue No -Bleeding Controlled with Pressure -Offloading Yes -Type of Offloading Surgical Shoe -Treatment Response Procedure Tolerated Well 2. R Dorsal foot -Time 12:15 -Correct Patient Yes -Correct Side, Site, Position Yes -Correct Procedure Yes -Procedure Performed Yes -Type of Procedure Debridement -Clinical Debridement Subcutaneous -Post Debridement Size (cm) - Length 3.0 -Post Debridement Size (cm) - Width 2.1 -Post Debridement Size (cm) - Depth 0.2 -Total Square Cm 6.30 -Wound/Ulcer Outcome Not Healed -Ulcer Cleansing Rinsed/ Irrigated with Saline -Foul Odor after Cleansing No -Bioengineered Tissue No -Bleeding Controlled with Pressure -Offloading Yes -Type of Offloading Surgical Shoe -Treatment Response Procedure Tolerated Well 1. R lateral ankle -Time 12:16 -Correct Patient Yes -Correct Side, Site, Position Yes -Correct Procedure Yes -Procedure Performed Yes -Type of Procedure Debridement -Clinical Debridement Subcutaneous -Post Debridement Size (cm) - Length 8.1 -Post Debridement Size (cm) - Width 5.8 -Post Debridement Size (cm) - Depth 0.2 -Total Square Cm 46.98 -Wound/Ulcer Outcome Not Healed -Ulcer Cleansing Rinsed/ Irrigated with Saline -Foul Odor after Cleansing No -Bioengineered Tissue No -Bleeding Controlled with Pressure -Offloading Yes -Type of Offloading Surgical Shoe -Treatment Response Procedure Tolerated Well [See Physician Procedure note for Specifics] Pain Scale: 0-10 Numeric [Pain] -Is Patient Pain Free? Yes Musculoskeletal: No Tenderness to Palpation of Joints or Extremities, Muscle Wasting Neurological: - - Lack of normal epicritic sensation light touch bilateral lower extremities consistent with neuropathy Psych/Mental Status: Normal Affect, Appropriate Debridement Note Post-Debridement Measurements/Treatment WC - Nurse 2 - General Ulcer CM Notes Start: 01/19/19 11:35 Freq: Status: Active Protocol: Activity Type Activity Date Activity User E-Sign Co-Sign Detail Recorded Client Recorded Date Recorded By Document 01/19/19 12:14 AN [id number] 01/19/19 12:25 AN Document 01/26/19 12:13 AN [id number] 01/26/19 12:21 AN 01/19/19 01/26/19 12:14 12:13 Wound Center Nurse 2 3. R foot amp site 1st digit -Time 12:18 12:13 -Correct Patient Yes Yes -Correct Side, Site, Position Yes Yes -Correct Procedure Yes Yes -Procedure Performed Yes Yes -Type of Procedure Debridement Debridement -Clinical Debridement Subcutaneous Subcutaneous -Post Debridement Size (cm) - Length 2.6 0.5 -Post Debridement Size (cm) - Width 0.3 3.2 -Post Debridement Size (cm) - Depth 0.2 0.3 -Total Square Cm 0.78 1.60 -Wound/Ulcer Outcome Not Healed Not Healed -Ulcer Cleansing Rinsed/ Rinsed/ Irrigated with Irrigated with Saline Saline -Foul Odor after Cleansing No No -Bioengineered Tissue No No -Bleeding Controlled with Pressure Pressure -Offloading Yes Yes -Type of Offloading Surgical Shoe Surgical Shoe -Treatment Response Procedure Procedure Tolerated Well Tolerated Well 2. R Dorsal foot -Time 12:19 12:15 -Correct Patient Yes Yes -Correct Side, Site, Position Yes Yes -Correct Procedure Yes Yes -Procedure Performed Yes Yes -Type of Procedure Debridement Debridement -Clinical Debridement Subcutaneous Subcutaneous -Post Debridement Size (cm) - Length 1.9 3.0 -Post Debridement Size (cm) - Width 2.1 2.1 -Post Debridement Size (cm) - Depth 0.2 0.2 -Total Square Cm 3.99 6.30 -Wound/Ulcer Outcome Not Healed Not Healed -Ulcer Cleansing Rinsed/ Rinsed/ Irrigated with Irrigated with Saline Saline -Foul Odor after Cleansing No No -Bioengineered Tissue No No -Bleeding Controlled with Pressure Pressure -Offloading Yes Yes -Type of Offloading Surgical Shoe Surgical Shoe -Treatment Response Procedure Procedure Tolerated Well Tolerated Well 1. R lateral ankle -Time 12:19 12:16 -Correct Patient Yes Yes -Correct Side, Site, Position Yes Yes -Correct Procedure Yes Yes -Procedure Performed Yes Yes -Type of Procedure Debridement Debridement -Clinical Debridement Subcutaneous Subcutaneous -Post Debridement Size (cm) - Length 8.1 8.1 -Post Debridement Size (cm) - Width 6.2 5.8 -Post Debridement Size (cm) - Depth 0.4 0.2 -Total Square Cm 50.22 46.98 -Wound/Ulcer Outcome Not Healed Not Healed -Ulcer Cleansing Rinsed/ Rinsed/ Irrigated with Irrigated with Saline Saline -Foul Odor after Cleansing No No -Bioengineered Tissue No No -Bleeding Controlled with Pressure Pressure -Offloading Yes Yes -Type of Offloading Surgical Shoe Surgical Shoe -Treatment Response Procedure Procedure Tolerated Well Tolerated Well Pain Scale: 0-10 Numeric Is Patient Pain Free? Yes Wound debrided: lateral ankle Laterality: Right Wound Grade/Stage: grade 1 Type of Debridement: Excisional debridement Anesthesia Used: 5% Lidocaine Gel Depth: in the subcutaneous layer Percentage of wound debrided: 100 Instrument Used: #15 blade Tissue Removed: fibrous, devitalized subcutaneous, biofilm, slough Severity: Fat Layer Exposed Amount of bleeding with debridement: Mild Bleeding Controlled with: Pressure Patient tolerated procedure well - Additional Wound Wound debrided: medial forefoot Laterality: Right Wound Grade/Stage: grade 1 Type of Debridement: Excisional debridement Anesthesia Used: 5% Lidocaine Gel Depth: in the subcutaneous layer Percentage of wound debrided: 100 Instrument Used: #15 blade Tissue Removed: fibrous, devitalized subcutaneous, biofilm, slough Severity: Fat Layer Exposed Amount of bleeding with debridement: Mild Bleeding Controlled with: Pressure Patient tolerated procedure: Patient tolerated procedure well - Additional Wound Wound debrided: medial proximal leg (bypass site) Laterality: Right Wound Grade/Stage: grade 1 Type of Debridement: Excisional debridement Anesthesia Used: 5% Lidocaine Gel Depth: in the subcutaneous layer Percentage of wound debrided: 100 Instrument Used: #15 blade Tissue Removed: fibrous, devitalized subcutaneous, biofilm, slough Severity: Fat Layer Exposed Amount of bleeding with debridement: Mild Bleeding Controlled with: Pressure Patient tolerated procedure: Patient tolerated procedure well - Additional Wound Wound debrided: dorsal foot Laterality: Right Wound Grade/Stage: grade 1 Type of Debridement: Excisional debridement Anesthesia Used: 5% Lidocaine Gel Depth: in the subcutaneous layer Percentage of wound debrided: 100 Instrument Used: #15 blade Tissue Removed: fibrous, devitalized subcutaneous, biofilm, slough Severity: Fat Layer Exposed Amount of bleeding with debridement: Mild Bleeding Controlled with: Pressure Patient tolerated procedure: Patient tolerated procedure well Assessment/Plan Active Problems Ulcer of right lower extremity with fat layer exposed (Chronic) Ulcer of right foot with fat layer exposed (Chronic) Other specified peripheral vascular diseases (Chronic) Malnutrition (Chronic) Delayed wound healing (Chronic) Type 2 diabetes mellitus with diabetic polyneuropathy (Chronic) Localized edema (Chronic) Assessment: 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 Dorsal right foot ulcer, grade 1 in no infection. Right lateral ankle ulcer, grade 1 in no infection. Diabetes with neuropathy. Peripheral vascular disease. Delayed healing. Malnutrition Plan: I reviewed and discussed his case today. Subcutaneous excisional debridement was performed in the clinical panel. Right foot and ankle x-rays an updated CBC, CMP, hemoglobin A1c labs were ordered to better understand his medical stability. X-rays images were reviewed and there is very subtle cortical thinning to the distal lateral fibula and this is concerning for bone involvement and remain possible chronic osteomyelitis due to the chronicity of this open adjacent wound. Although his MRI was negative for osteomyelitis when obtained in September 2018, I do recommend an updated MRI to evaluate for this now that has been approximately 4 months timeframe. Hydrogel with overlying Adaptic was applied to the site to maintain a better moist environment to the lateral ankle. Aquacel Ag and gauze were applied to the other sites. To change dressing daily. He was reassured no acute signs of infection are noted at this time. It is noted this is a chronic ulcer and I recommend advanced wound healing. Labs are reviewed and he has a white blood cell count of 9.3 and a sed imentation rate of 29. His hemoglobin A1c was also noted to be 6.4%. His vascular surgery notes including operation report were reviewed and he has a follow-up this next week. I recommend continued follow-up and medical records will be further requested. I also recommend nutritional supplementation optimize healing; a new prescription for Osito nutritional supplement was provided. To avoid pressure on the ulcer sites by not lying on the right lateral ankle site. I advised him to wear a surgical shoe to keep pressure off of his foot ulcer sites as well. I recommend operating room versa jet debridement, application of advanced wound care products such as epi cord and amnio fill, and bone biopsy versus debridement pending updated MRI results. I also recommend application of wound VAC. I would also like to consider debriding and applying his advance product to his nonhealing bypass site and I will discuss this option with his surgeon. The preoperative indications, planned procedure, possible benefits, risks, complications, and anticipated healing time and management were discussed in detail with the patient. He understands and elects to proceed with surgery at this time. No guarantees are made. The informed surgical consent will need to be obtained. He understands he is required to have a clearance and history and physical performed by his primary care physician. Nurse Park, surgical resident, will contact him to facilitate organizing his updated MRI and surgery scheduling. He understands this is a serial process and this is for limb salvage. This is medically necessary. Answered all of his questions. Pending the MRI results we will also consider if he is a candidate for hyperbaric oxygen therapy. To follow-up with the wound healing center in 1 week or call sooner if he has any questions or concerns.
[2019-02-02 10:53] VITALS: BP 162/80; PULSE 100; RESP 18; TEMP 36.6; BMI 51.7
--- NOTE | 2019-02-02 12:50 | PCM.WC.PN ---
(1) Ulcer of right lower extremity with necrosis of muscle Status: Chronic Current Visit: Yes Code(s): L97.913 - Non-pressure chronic ulcer of unspecified part of right lower leg with necrosis of muscle (2) Ulcer of right lower extremity with fat layer exposed Status: Chronic Current Visit: Yes Code(s): L97.912 - Non-pressure chronic ulcer of unspecified part of right lower leg with fat layer exposed (3) Ulcer of right foot with fat layer exposed Status: Chronic Current Visit: Yes Code(s): L97.512 - Non-pressure chronic ulcer of other part of right foot with fat layer exposed (4) Other specified peripheral vascular diseases Status: Chronic Current Visit: Yes Code(s): I73.89 - Other specified peripheral vascular diseases (5) Malnutrition Status: Chronic Current Visit: Yes Code(s): E46 - Unspecified protein-calorie malnutrition (6) Delayed wound healing Status: Chronic Current Visit: Yes Code(s): T14.8XXD - Other injury of unspecified body region, subsequent encounter (7) Type 2 diabetes mellitus with diabetic polyneuropathy Status: Chronic Current Visit: Yes Code(s): E11.42 - Type 2 diabetes mellitus with diabetic polyneuropathy (8) Localized edema Status: Chronic Current Visit: Yes Code(s): R60.0 - Localized edema Type of Wound Date of Service: 02/02/19 Chief Complaint: Ankle ulcer and foot ulcers History of Wound: This 53-year-old male with other comorbidities was seen in the wound care center for chronic nonhealing right foot and ankle ulcers. He had previous surgical debridement and vascular intervention performed with Dr. Hooks an outside facility. He denies redness, or increased warmth. He denies fever, chill, nausea, vomiting. He does report a slight odor and increased drainage to the outside of his right ankle. He denies pain. He denies recent injury. He change the dressing with Aquacel Ag this past week. He denies claudication however does not walk a significant amount. He did obtain his lab work as ordered and his medical records have arrived from [facility]. It is noted he did have surgery done on October 12, 2018 including a right femoral and posterior tibial artery bypass with a saphenous vein graft involvement. He continues to follow-up with his vascular surgeon at the same location. He has had previous x-rays and MRIs. His previous MRI from October 02, 2018 did not demonstrate osseous destruction to the lateral distal fibula there was peroneal tenosynovitis. He is amenable to proceed forward with operating room debridement and advance wound care product application. I also recommended an updated MRI due to his status change and this prior authorization is pending. This will need to be completed prior to surgical intervention to help determine if bone debridement and location of bone biopsy would be the most appropriate site. Progress of Wound: status changes right lateral ankle. Improved right proximal leg. Stable right foot ulcers x2 - Physical Exam Vital Signs Temp Pulse Resp BP 97.8 F 100 18 162/80 H 02/02/19 10:53 02/02/19 10:53 02/02/19 10:53 02/02/19 10:53 General: Alert, Oriented x3, Cooperative Extremities: No cyanosis, Capillary Refill Less than 3 Seconds, No Calf Tenderness - Negative Magalis and Costa sign right, Diminished Peripheral Pulses, Edema - Controlled bilateral lower extremities Skin: Ulcer/ Wound - No purulence, odor, infection, streaking, or exposed bone. There is progressive granulation tissue to the right proximal leg. The right foot ulcer is also granular bases. The right lateral leg ulcer does have progressive eschar and devitalized tissue noted now with exposed fascia and subtalar joint fluid without distinct probe to bone. The peripheral skin is hairless and atrophic. There is no distinct maceration Wound Measurements and Assessment WC - Nurse 1 - General Ulcer Measurement Start: 01/19/19 11:35 Freq: Status: Active Protocol: Activity Type Activity Date Activity User E-Sign Co-Sign Detail Recorded Client Recorded Date Recorded By Document 02/02/19 10:53 RB [id number] 02/02/19 11:12 RB 02/02/19 10:53 Wound Center Nurse 1 [Ulcer Assessment] 3. R foot amp site 1st digit -Combined with other wound No -Current Size (cm) - Length 2.4 -Current Size (cm) - Width 0.5 -Current Size (cm) - Depth 0.3 -Total Square Cm 1.20 -Photo Taken No -Tunneling No -Undermining/Tunneling No -Circular Undermining No -Exudate Amt Medium -Exudate Type Serosanguineous -Wound Margin Distinct, Outline Attached -Granulation Amt Medium (34-66%) -Granulation Quality Red -Slough/Fibrin Yes -Necrosis Amt Small (1-33%) -Necrotic Tissue Type Adherent Slough -Structure Exposed N/A -Texture (Ángela-wound Skin Appearance) Assessed -Moisture (Ángela-wound Skin Appearance Dry/Scaly ) -Color (Ángela-wound Skin Appearance) Assessed -Temperature (Ángela-wound Skin No Abnormality Appearance) (Pt Warm) -Tenderness on Palpation (Ángela-wound No Skin Appearance) -Ulcer Cleansing Wound Cleanser -Foul Odor after Cleansing No -Anesthetic Used 5% Lidocaine Gel 2. R Dorsal foot -Combined with other wound No -Current Size (cm) - Length 2.7 -Current Size (cm) - Width 2.5 -Current Size (cm) - Depth 0.2 -Total Square Cm 6.75 -Tunneling No -Undermining/Tunneling No -Circular Undermining No -Exudate Amt Medium -Exudate Type Serosanguineous -Wound Margin Distinct, Outline Attached -Granulation Amt Large (67-100%) -Granulation Quality [place] Red -Slough/Fibrin Yes -Necrosis Amt Small (1-33%) -Necrotic Tissue Type Adherent Slough -Structure Exposed N/A -Texture (Ángela-wound Skin Appearance) Assessed -Moisture (Ángela-wound Skin Appearance Assessed ) Dry/Scaly -Color (Ángela-wound Skin Appearance) Assessed -Temperature (Ángela-wound Skin No Abnormality Appearance) (Pt Warm) -Tenderness on Palpation (Ángela-wound No Skin Appearance) -Ulcer Cleansing Wound Cleanser -Foul Odor after Cleansing No -Anesthetic Used 5% Lidocaine Gel 1. R lateral ankle -Combined with other wound No -Current Size (cm) - Length 9.2 -Current Size (cm) - Width 7 -Current Size (cm) - Depth 0.2 -Total Square Cm 64.4 -Tunneling No -Undermining/Tunneling No -Circular Undermining No -Exudate Amt Large -Exudate Type Serosanguineous -Wound Margin Thickened & Rolled Under -Granulation Amt Medium (34-66%) -Granulation Quality [place] Red -Slough/Fibrin Yes -Necrosis Amt Medium (34-66%) -Necrotic Tissue Type Adherent Slough -Structure Exposed N/A -Texture (Ángela-wound Skin Appearance) Assessed -Moisture (Ángela-wound Skin Appearance Dry/Scaly ) -Color (Ángela-wound Skin Appearance) Assessed -Temperature (Ángela-wound Skin No Abnormality Appearance) (Pt Warm) -Tenderness on Palpation (Ángela-wound No Skin Appearance) -Ulcer Cleansing Wound Cleanser -Foul Odor after Cleansing No -Anesthetic Used 5% Lidocaine Gel [Edema Assessment] -Lower Limb Edema Present Yes -Right Calf (cm) 49 -Right Ankle (cm) 32.5 WC - Nurse 2 - General Ulcer CM Notes Start: 01/19/19 11:35 Freq: Status: Active Protocol: Activity Type Activity Date Activity User E-Sign Co-Sign Detail Recorded Client Recorded Date Recorded By Document 02/02/19 11:19 AN [id number] 02/02/19 11:33 AN 02/02/19 11:19 Wound Center Nurse 2 [Procedure/Treatment] 3. R foot amp site 1st digit -Time 11:22 -Correct Patient Yes -Correct Side, Site, Position Yes -Correct Procedure Yes -Procedure Performed Yes -Type of Procedure Debridement -Clinical Debridement Subcutaneous -Post Debridement Size (cm) - Length 2.5 -Post Debridement Size (cm) - Width 0.6 -Post Debridement Size (cm) - Depth 0.3 -Total Square Cm 1.50 2. R Dorsal foot -Time 11:23 -Correct Patient Yes -Correct Side, Site, Position Yes -Correct Procedure Yes -Procedure Performed Yes -Post Debridement Size (cm) - Length 2.8 -Post Debridement Size (cm) - Width 2.6 -Post Debridement Size (cm) - Depth 0.2 -Total Square Cm 7.28 1. R lateral ankle -Time 11:23 -Correct Patient Yes -Correct Side, Site, Position Yes -Correct Procedure Yes -Procedure Performed Yes -Type of Procedure Debridement -Clinical Debridement Subcutaneous -Post Debridement Size (cm) - Length 9.3 -Post Debridement Size (cm) - Width 7.1 -Post Debridement Size (cm) - Depth 0.2 -Total Square Cm 66.03 [See Physician Procedure note for Specifics] Pain Scale: 0-10 Numeric [Pain] -Is Patient Pain Free? Yes Musculoskeletal: No Tenderness to Palpation of Joints or Extremities, Muscle Wasting, Tenderness - Pain with ulcer manipulation to all sites Neurological: - - Lack of normal epicritic sensation light touch right lower extremities consistent with neuropathy Psych/Mental Status: Normal Affect, Appropriate Debridement Note Post-Debridement Measurements/Treatment WC - Nurse 2 - General Ulcer CM Notes Start: 01/19/19 11:35 Freq: Status: Active Protocol: Activity Type Activity Date Activity User E-Sign Co-Sign Detail Recorded Client Recorded Date Recorded By Document 01/19/19 12:14 AN [id number] 01/19/19 12:25 AN Document 01/26/19 12:13 AN [id number] 01/26/19 12:21 AN Document 02/02/19 11:19 AN [id number] 02/02/19 11:33 AN 01/19/19 01/26/19 02/02/19 12:14 12:13 11:19 Wound Center Nurse 2 3. R foot amp site 1st digit -Time 12:18 12:13 11:22 -Correct Patient Yes Yes Yes -Correct Side, Site, Position Yes Yes Yes -Correct Procedure Yes Yes Yes -Procedure Performed Yes Yes Yes -Type of Procedure Debridement Debridement Debridement -Clinical Debridement Subcutaneous Subcutaneous Subcutaneous -Post Debridement Size (cm) - Length 2.6 0.5 2.5 -Post Debridement Size (cm) - Width 0.3 3.2 0.6 -Post Debridement Size (cm) - Depth 0.2 0.3 0.3 -Total Square Cm 0.78 1.60 1.50 -Wound/Ulcer Outcome Not Healed Not Healed -Ulcer Cleansing Rinsed/ Rinsed/ Irrigated with Irrigated with Saline Saline -Foul Odor after Cleansing No No -Bioengineered Tissue No No -Bleeding Controlled with Pressure Pressure -Offloading Yes Yes -Type of Offloading Surgical Shoe Surgical Shoe -Treatment Response Procedure Procedure Tolerated Well Tolerated Well 2. R Dorsal foot -Time 12:19 12:15 11:23 -Correct Patient Yes Yes Yes -Correct Side, Site, Position Yes Yes Yes -Correct Procedure Yes Yes Yes -Procedure Performed Yes Yes Yes -Type of Procedure Debridement Debridement -Clinical Debridement Subcutaneous Subcutaneous -Post Debridement Size (cm) - Length 1.9 3.0 2.8 -Post Debridement Size (cm) - Width 2.1 2.1 2.6 -Post Debridement Size (cm) - Depth 0.2 0.2 0.2 -Total Square Cm 3.99 6.30 7.28 -Wound/Ulcer Outcome Not Healed Not Healed -Ulcer Cleansing Rinsed/ Rinsed/ Irrigated with Irrigated with Saline Saline -Foul Odor after Cleansing No No -Bioengineered Tissue No No -Bleeding Controlled with Pressure Pressure -Offloading Yes Yes -Type of Offloading Surgical Shoe Surgical Shoe -Treatment Response Procedure Procedure Tolerated Well Tolerated Well 1. R lateral ankle -Time 12:19 12:16 11:23 -Correct Patient Yes Yes Yes -Correct Side, Site, Position Yes Yes Yes -Correct Procedure Yes Yes Yes -Procedure Performed Yes Yes Yes -Type of Procedure Debridement Debridement Debridement -Clinical Debridement Subcutaneous Subcutaneous Subcutaneous -Post Debridement Size (cm) - Length 8.1 8.1 9.3 -Post Debridement Size (cm) - Width 6.2 5.8 7.1 -Post Debridement Size (cm) - Depth 0.4 0.2 0.2 -Total Square Cm 50.22 46.98 66.03 -Wound/Ulcer Outcome Not Healed Not Healed -Ulcer Cleansing Rinsed/ Rinsed/ Irrigated with Irrigated with Saline Saline -Foul Odor after Cleansing No No -Bioengineered Tissue No No -Bleeding Controlled with Pressure Pressure -Offloading Yes Yes -Type of Offloading Surgical Shoe Surgical Shoe -Treatment Response Procedure Procedure Tolerated Well Tolerated Well Pain Scale: 0-10 Numeric Is Patient Pain Free? Yes Yes Wound debrided: dorsal foot Laterality: Right Wound Grade/Stage: grade 1 Type of Debridement: Excisional debridement Anesthesia Used: 4% Lidocaine Solution Depth: in the subcutaneous layer Percentage of wound debrided: 100 Instrument Used: #15 blade Tissue Removed: fibrous, devitalized subcutaneous, biofilm, slough Severity: Fat Layer Exposed Amount of bleeding with debridement: Mild Bleeding Controlled with: Pressure Patient tolerated procedure well - Additional Wound Wound debrided: plantar medial foot Laterality: Right Wound Grade/Stage: grade 1 Type of Debridement: Excisional debridement Anesthesia Used: 4% Lidocaine Solution Depth: in the subcutaneous layer Percentage of wound debrided: 100 Instrument Used: #15 blade Tissue Removed: fibrous, devitalized subcutaneous, biofilm, slough, callous Severity: Fat Layer Exposed Amount of bleeding with debridement: Mild Bleeding Controlled with: Pressure Patient tolerated procedure: Patient tolerated procedure well - Additional Wound Wound debrided: lateral ankle Laterality: Right Wound Grade/Stage: grade 2 Type of Debridement: Excisional debridement Anesthesia Used: 5% Lidocaine Gel Depth: in the subcutaneous layer, to muscle Percentage of wound debrided: 100 Instrument Used: #15 blade, Forceps Tissue Removed: fibrous, devitalized subcutaneous, biofilm, slough, fascia/tendon Severity: Fat Layer Exposed Amount of bleeding with debridement: Mild Bleeding Controlled with: Pressure Patient tolerated procedure: Patient tolerated procedure well - Additional Wound Wound debrided: proximal medial leg Laterality: Right Wound Grade/Stage: grade 1 Type of Debridement: Excisional debridement Anesthesia Used: 5% Lidocaine Gel Depth: in the subcutaneous layer Percentage of wound debrided: 100 Instrument Used: 5mm curette Tissue Removed: fibrous, devitalized subcutaneous, biofilm, slough Severity: Fat Layer Exposed Amount of bleeding with debridement: Mild Bleeding Controlled with: Pressure Patient tolerated procedure: Patient tolerated procedure well Assessment/Plan Active Problems Ulcer of right lower extremity with fat layer exposed (Chronic) Ulcer of right foot with fat layer exposed (Chronic) Other specified peripheral vascular diseases (Chronic) Malnutrition (Chronic) Delayed wound healing (Chronic) Type 2 diabetes mellitus with diabetic polyneuropathy (Chronic) Localized edema (Chronic) Ulcer of right lower extremity with necrosis of muscle (Chronic) Assessment: 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 Dorsal right foot ulcer, grade 1 in no infection. Right lateral ankle ulcer, grade 2. Diabetes with neuropathy. Peripheral vascular disease. Delayed healing. Malnutrition Plan: I reviewed and discussed his case today. Subcutaneous excisional debridement was performed in the clinical panel. Debridement of nonviable fascia and muscle was also performed today to the right lateral ankle is noted in the clinical panel. Right foot and ankle x-rays an updated CBC, CMP, hemoglobin A1c labs were ordered to better understand his medical stability. X-rays images were reviewed and there is very subtle cortical thinning to the distal lateral fibula and this is concerning for bone involvement and remain possible chronic osteomyelitis due to the chronicity of this open adjacent wound. Although his MRI was negative for osteomyelitis when obtained in September 2018, I do recommend an updated MRI to evaluate for this now that has been approximately 4 months timeframe. Prior authorization is pending. The devitalized tissue and status change to the right lateral ankle is noted and a specimen was sent for aerobic, anaerobic, acid-fast, and fungal culture. Antibiotics and further treatment will be considered pending the culture results. Aquacel Ag was applied to all sites. To change dressing daily. He was reassured no acute signs of infection are noted at this time. It is noted this is a chronic ulcer and I recommend advanced wound healing. Labs are reviewed and he has a white blood cell count of 9.3 and a sedimentation rate of 29. His hemoglobin A1c was also noted to be 6.4%. His vascular surgery notes including operation report were reviewed and he has a follow-up this next week. I also recommend nutritional supplementation optimize healing; a new prescription for Osito nutritional supplement was provided. To avoid pressure on the ulcer sites by not lying on the right lateral ankle site. I advised him to wear a surgical shoe to keep pressure off of his foot ulcer sites as well. I recommend operating room versa jet debridement, application of advanced wound care products such as epi cord and amnio fill, and bone biopsy versus debridement pending updated MRI results. I also recommend application of wound VAC. I would also like to consider debriding and applying his advance product to his nonhealing bypass site and I will discuss this option with his surgeon. The preoperative indications, planned procedure, possible benefits, risks, complications, and anticipated healing time and management were discussed in detail with the patient. He understands and elects to proceed with surgery at this time. No guarantees are made. The informed surgical consent will need to be obtained. He understands he is required to have a clearance and history and physical performed by his primary care physician. Nurse Park, social work program coordinator, will contact him to facilitate organizing his updated MRI and surgery scheduling. He understands this is a serial process and this is for limb salvage. This is medically necessary. Answered all of his questions. The surgical consents with the aforementioned procedure were signed today. Pending the MRI results we will also consider if he is a candidate for hyperbaric oxygen therapy. To follow-up with the wound healing center in 1 week or call sooner if he has any questions or concerns.
[2019-02-09 10:49] VITALS: BP 125/97; PULSE 99; RESP 20; TEMP 36.7; BMI 51.7
== END 2019-02-13 23:59 ==
LOC: WC 10:45
PROVIDERS: Family Provider Family Medicine; PCP Family Medicine; Visit Provider Podiatrist
DX: E11.622 Type 2 diabetes mellitus with other skin ulcer (principal); E11.621 Type 2 diabetes mellitus with foot ulcer; L97.512 Non-pressure chronic ulcer of other part of right foot with fat layer exposed; E11.42 Type 2 diabetes mellitus with diabetic polyneuropathy; R60.0 Localized edema; L97.312 Non-pressure chronic ulcer of right ankle with fat layer exposed; E11.51 Type 2 diabetes mellitus with diabetic peripheral angiopathy without gangrene; L97.812 Non-pressure chronic ulcer of other part of right lower leg with fat layer exposed
CPT/HCPCS: 11042; 11045; 87070; 87075; 87077; 87186; 87205; 99213; G0463

== ENCOUNTER 2019-02-10 17:11 | Inpatient (IN) | payer OTHER, SELFPAY ==
[2019-01-26 12:05] VITALS: BMI 51.7
--- NOTE | 2019-02-08 16:39 | EKG12_ITS ---
Test Reason : PRE OP Blood Pressure : / mmHG Vent. Rate : 097 BPM Atrial Rate : 097 BPM P-R Int : 166 ms QRS Dur : 124 ms QT Int : 388 ms P-R-T Axes : 061 -16 044 degrees QTc Int : 492 ms Normal sinus rhythm Non-specific intra-ventricular conduction delay Borderline ECG Confirmed by ANA WALLIS, GABRIELLE ([id number]), content editor STEVENSON GONZALEZ ([id number]) on 02/09/2019 1:57:54 PM Referred By: Teri Mcnally Confirmed By:GABRIELLE PEREZ MD
[2019-02-09 10:49] VITALS: BMI 51.7
--- NOTE | 2019-02-09 15:22 | PN.PCM_ITS ---
(1) Osteomyelitis Status: Chronic Current Visit: Yes Qualifiers: Osteomyelitis location: fibula Code(s): M86.9 - Osteomyelitis, unspecified (2) Ulcer of right lower extremity with fat layer exposed Status: Chronic Current Visit: Yes Code(s): L97.912 - Non-pressure chronic ulcer of unspecified part of right lower leg with fat layer exposed (3) Ulcer of right foot with fat layer exposed Status: Chronic Current Visit: Yes Code(s): L97.512 - Non-pressure chronic ulcer of other part of right foot with fat layer exposed (4) Malnutrition Status: Chronic Current Visit: Yes Code(s): E46 - Unspecified protein- calorie malnutrition (5) Delayed wound healing Status: Chronic Current Visit: Yes Code(s): T14.8XXD - Other injury of unspecified body region, subsequent encounter (6) Type 2 diabetes mellitus with diabetic polyneuropathy Status: Chronic Current Visit: Yes Code(s): E11.42 - Type 2 diabetes mellitus with diabetic polyneuropathy (7) Localized edema Status: Chronic Current Visit: Yes Code(s): R60.0 - Localized edema Type of Wound Date of Service: 02/09/19 Chief Complaint: Ankle , leg, foot ulcers History of Wound: This 53-year-old male with other comorbidities was seen in the wound care center for chronic nonhealing right foot and ankle ulcers. He had previous surgical debridement and vascular intervention performed in outside facility over a month ago. He recently had a patency check with a Doppler exam and reports his flow is still intact to the right lower extremity. He denies redness, odor, or increased warmth. He denies fever, chill, nausea, vomiting. He denies recent injury. He changes the dressing with Aquacel Ag this past week. It is noted he did have surgery done on October 12, 2018 including a right femoral and posterior tibial artery bypass with a saphenous vein graft involvement. He has had previous x-rays and MRIs. His previous MRI from October 02, 2018 did not demonstrate osseous destruction to the lateral distal fibula there was peroneal tenosynovitis. However, his recent x-rays demonstrated diminished periosteal lining at the fibula at this level and a repeat MRI was repeated yesterday. He is amenable to proceed forward with operating room debridement and advance wound care product application. Progress of Wound: Worsening status - Physical Exam General: Alert, Oriented x3, Cooperative HEENT: Atraumatic Extremities: No cyanosis, Capillary Refill Less than 3 Seconds, No Calf Tenderness - Negative Costa and Magalis bilateral, Diminished Peripheral Pulses, Edema, Tenderness - Tenderness with ulcer manipulation right lower extremity especially lateral ankle Skin: Ulcer/ Wound - The right proximal medial leg, right dorsal foot, and right distal medial foot ulcer sites are granular and fibrous with no purulence, erythema, streaking, odor, or infection. His skin is very hairless and atrophi c. He does have a new sub-hemorrhagic very superficial right anterior castorena skin discontinuity that he thinks he bumped. The right lateral ankle ulcer has deteriorated and there is progressive odor with the wound eschar formation devitalized tissue and now exposed tendon and joint structure including the peroneal tendons. There is no visualized bone however it is certainly in close proximity at this time there is no purulence on expression and the surrounding skin is not boggy or fluctuant Musculoskeletal: No Tenderness to Palpation of Joints or Extremities, Muscle W asting Neurological: - - Lack of normal epicritic sensation light touch. Involuntary movement of the right leg continues Psych/Mental Status: Normal Affect, Appropriate Debridement Note No debridement was completed today - Plan to go to operating room tomorrow Assessment/Plan Active Problems Osteomyelitis of fibula (Acute) Osteomyelitis (Chronic) Ulcer of right lower extremity with fat layer exposed (Chronic) Ulcer of right foot with fat layer exposed (Chronic) Other specified peripheral vascular diseases (Chronic) Malnutrition (Chronic) Delayed wound healing (Chronic) Type 2 diabetes mellitus with diabetic polyneuropathy (Chronic) Localized edema (Chronic) Ulcer of right lower extremity with necrosis of muscle (Chronic) Assessment: 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 Dorsal right foot ulcer, grade 1 in no infection. Right lateral ankle ulcer, worsening status with infection. Diabetes with neuropathy. Peripheral vascular disease. Delayed healing. Malnutrition Plan: I reviewed and discussed his case today. He is scheduled for surgical intervention tomorrow including debridement of 9 healthy and now also to remove his infected tissue. Advanced wound care application will be considered pending the post debridement wound appearance with application of wound VAC if appropriate. A bone biopsy of the distal fibula will also be obtained. x-rays images were reviewed and there is very subtle cortical thinning to the distal lateral fibula and this is concerning for bone involvement and remain possible chronic osteomyelitis due to the chronicity of this open adjacent wound. Although his MRI was negative for osteomyelitis when obtained in September 2018, I do recommend an updated MRI to evaluate for this now that has been approximately 4 months timeframe. This MRI was completed yesterday and the report is back today and it is consistent with osteomyelitis of the distal fibula. Aquacel Ag was applied. Aquacel Ag and gauze were applied to the other sites. To change dressing daily. Labs are reviewed and he has a white blood cell count of 9.3 and a sedimentation rate of 29. His hemoglobin A1c was also noted to be 6.4%. His preoperative history and physical clearance exam were reviewed from his primary care physician and so is his preoperative EKG. His vascular surgery notes including operation report were reviewed and he has a follow-up this next week. I recommend continued follow-up and medical records will be further requested. I also recommend nutritional supplementation optimize healing; a new prescription for Osito nutritional supplement was provided. To avoid pressure on the ulcer sites by not lying on the right lateral ankle site. I advised him to wear a surgical shoe to keep pressure off of his foot ulcer sites as well. The preoperative indications, planned procedure, possible benefits, risks, complications, and anticipated healing time and management were discussed in detail with the patient. He understands and elects to proceed with surgery at this time. No guarantees are made. The informed surgical consent was signed. He understands this is a serial process and this is for limb salvage case. This is medically necessary. I answered all of his questions. Due to his worsening status progression I recommend admission after surgical intervention for infectious disease consultation. He is a candidate for hyperbaric oxygen therapy, and this will be pursued when he returns to the outpatient setting. To follow-up with the wound healing center in 1 week or call sooner if he has any questions or concerns.
[2019-02-10] VITALS (10 sets, daily range): BP systolic 120–149; BP diastolic 18–80; PULSE 90–106; RESP 16–18; TEMP 36.4–38.1; O2SAT 95–99; BMI 47.9
--- NOTE | 2019-02-10 | BON_PTH ---
PATIENT: LULI COHEN LOC: MS2 U#:[id number] AGE/SX: 53/M ROOM: [facility]214 RE02/10/[address]: Dr. Jhony Flor MD : 1965 BED: 1 DIS: 02/16/2019 SPEC #: [id number] RECD: 02/11/19 09:12 STATUS: MINDA REMary #: [id number] JENNIFER: 02/10/19 00:[address]: Teri Mcnally DEPT: SURGICAL PATHOLOGY RECD BY: Shawn Abel ENTERED: 02/11/19 09:12 SP TYPE: Bone OTHR DR: DO Dr. Yohan Brooks, DO Dr. Raad Salinas MD Tissues: Bone of foot, NOS Procedures: Decalcification bone/plaque Surgery Specimen Level IV HEADER OPERATION: Right fibula bone biopsy, debridement, nonviable tissue PRE-OP DIAGNOSIS: Diabetes mellitus, ischemic ulcer diabetic right foot; peripheral neuropathy TISSUE SUBMITTED: Bone right fibula MICROSCOPIC DIAGNOSIS Bone of right fibula, biopsy: Reactive and reparative change with rare maturing bone marrow elements. AM:paola 02/16/19 MICROSCOPIC DESCRIPTION Slides are reviewed. GROSS DESCRIPTION Received in fixative is one container labeled with the patient's name and designated bone right fibula. The specimen consists of a piece of bone measuring 0.5 x 0.4 x 0.3 cm. The entire specimen is submitted in one cassette after decalcification. / BRYNN:paola 02/11/19 TC:5 CPT: 37895, 87376
[2019-02-10 14:10] LABS: Bedside Glucose 170 mg/dL (70-110)
[2019-02-10] MEDS: Bupivacaine Mpf 0.5% 30 ML VIAL (14:54)
--- NOTE | 2019-02-10 15:30 | RAD_ITS ---
STUDY: X-RAY - RIGHT ANKLE REASON FOR EXAM: Male, 53 years old. Right fibula bone biopsy. TECHNIQUE: Single coned-down intraoperative view(s) of the ankle. COMPARISON: Comparison is made with prior study dated January 25, 2019. FINDINGS: Intraoperative imaging provided for biopsy of the distal fibula. RAD/Ankle 2 Views IMPRESSION: Intraoperative imaging provided for biopsy of the distal fibula. Electronically Signed: Socrates Saini, at 9:03 EDT , Service support ,
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
[2019-02-10 17:25] LABS: Bedside Glucose 156 mg/dL (70-110)
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
[2019-02-10] MEDS: levoFLOXacin IV 750 MG/150 ML BAG 100 MG IV (19:56)
[2019-02-10] MEDS: oxyCODONE 5 MG Tablet PO ×2 (20:24→21:01)
[2019-02-10] MEDS: 0.9% NaCl IVPB Med Flush (250 mL) 15 ML IV (20:24)
--- NOTE | 2019-02-10 20:40 | NURSING ---
offered pt bariatric bed. pt declined at this time
[2019-02-10] MEDS: Gabapentin 300 MG Capsule PO (21:00)
[2019-02-10 21:23] LABS: Anion Gap 4 (5-15); BUN 18 mg/dL (7-18); BUN/Creat Ratio 22.5 RATIO (10-20); Calcium,Total 8.1 mg/dL (8.5-10.1); Chloride 104 mmol/L (98-107); EST Glomerular Filtration Rate 107 mL/min (>60); Est Glom Filt Rate - Afr Amer 129 mL/min (>60); Estimated Creatinine Clearance 131.48 ml/min; Glucose 206 mg/dL (74-106); Potassium 3.9 mmol/L (3.5-5.1); Sodium Level 136 mmol/L (136-145)
[2019-02-10] MEDS: Atorvastatin Calcium 20 MG Tablet PO (22:08)
[2019-02-10 22:15] LABS: Bedside Glucose 234 mg/dL (70-110)
[2019-02-10] MEDS: Nystatin Powder 15gm Bottle 1 APPLIC TOPICAL (22:43)
--- NOTE | 2019-02-11 00:39 | PCM.RX.CS ---
Consult Pharmacy has been consulted to manage selected antiobiotic: Vancomycin Type of Consult: New start Suspected Infection: Osteomyelitis Labs: Sodium 136 mmol/L (136-145) 02/10/19 21:00 Potassium 3.9 mmol/L (3.5-5.1) 02/10/19 21:00 Chloride 104 mmol/L (98-107) 02/10/19 21:00 Carbon Dioxide 28.0 mmol/L (21.0-32.0) 02/10/19 21:00 Anion Gap 4 (5-15) L 02/10/19 21:00 BUN 18 mg/dL (7-18) 02/10/19 21:00 Creatinine 0.80 mg/dL (0.70-1.30) 02/10/19 21:00 Est GFR (MDRD) Af Amer 129 mL/min (>60) 02/10/19 21:00 Est GFR (MDRD) Non-Af 107 mL/min (>60) 02/10/19 21:00 BUN/Creatinine Ratio 22.5 RATIO (10-20) H 02/10/19 21:00 Glucose 206 mg/dL (74-106) H 02/10/19 21:00 Weight used for dosin.25 kg Estimated Creatinine Clearance: 131.48 Goal Trough: 15-20 mcg/mL Pharmacy Plan for Drug Dosing: Pharmacy Service will continue to monitor and adjust dosing as required. Medications Vancomycin HCl 1,500 mg/ (Sodium Chloride) 530 mls @ 250 mls/hr IV Q8H DAPHNEY Discontinued Medications Vancomycin HCl 2,000 mg/ (Sodium Chloride) 540 mls @ 250 mls/hr IV X1 ONE Stop: 02/10/19 21:39 Last Admin: 02/10/19 22:03 Dose: 250 mls/hr Follow-Up Labs: Trough Vancomycin Labs to be done on [date and time ordered]: 02/11 @ 2200
[2019-02-11] MEDS: oxyCODONE 5 MG Tablet PO (02:27)
[2019-02-11 05:23] VITALS: BP 129/67; PULSE 94; RESP 24; TEMP 36.8; O2SAT 94
[2019-02-11 06:45] LABS: Bedside Glucose 152 mg/dL (70-110)
[2019-02-11] MEDS: Insulin Lispro 100 UNIT/ML INSULN.PEN SQ (06:45)
--- NOTE | 2019-02-11 06:46 | PCM.PN.HOSP ---
Patient Problems: Active and Suspected Problems Osteomyelitis of fibula (Acute) Subjective: Patient with ongoing discomfort, currently rating his discomfort in his right lower extremity 4 out of 10. States that his pain medication does help but not markedly. Recent dressing change and reapplication per podiatry with planned continuation of back and aggressive dressings. Discussed plan of care with patient which included awaiting ID evaluation with currently plan to add IV Flagyl although possible alteration per infectious disease pending their evaluation. Patient denies fevers, chills, nausea, emesis, abdominal pain, chest pain or dyspnea. Objective: Physical Examination: General: awake, alert, oriented x 3 and cooperative, seated upright in bed, notes discomfort ongoing to the right lower extremity. Skin: normal color, turgor, no icterus, cyanosis right lower extremity status post recent operative intervention with a wound VAC to the right lower extremity intact, advanced wound care products to the overlying Adaptic and other ulcer sites with no streaking or purulent material or necrotic material apparent, still mild older, possibly odor secondary to patient intertrigo present in folds. HEENT: AT/NC, EOMI, PERRLA, MMM. Lungs: CTA bilaterally, moderate effort, mild decrease BL bases, no rales, ronchi or wheezing. Heart: Regular rate and rhythm; no gallop, rub audible. Abdomen: soft, overly obese, NTTP, ND, normal BS, intertrigo present in folds ongoing nystatin application. Extremities: no cyanosis, clubbing, see skin. Neurological: patient awake, alert, oriented x 3; cognitive function intact; pupils equally reactive to light and accomodation; cranial nerves II-XII grossly normal, moving all 4 extremities although limited by recent intervention to the right lower extremity, strength accordingly moderately globally decreased. Psychiatric: affect appears normal, no acute evidence of depressive or anxiety feelings. Vitals/I&O's: Vital Signs Temp Pulse Resp BP Pulse Ox 98.3 F 94 24 H 129/67 H 94 02/11/19 05:23 02/11/19 05:23 02/11/19 05:23 02/11/19 05:23 02/11/19 05:23 Oxygen Delivery Method Room Air Weight: 403 lb 15.988 oz Body Mass Index (BMI) 47.9 Intake and Output for Last 24 Hours 02/09/19 02/10/19 02/11/19 23:59 23:59 23:59 Intake Total 1800 / 1800 2024 Output Total 900 / 900 Balance 1800 / 1800 1125 / 1125 Laboratory Results 02/10/19 13:48: POC Glucose 170 H 02/10/19 17:20: POC Glucose 156 H 02/10/19 21:00: Sodium 136, Potassium 3.9, Chloride 104, Carbon Dioxide 28.0, Anion Gap 4 L, BUN 18, Creatinine 0.80, Estim Creat Clear Calc 131.48, Est GFR (MDRD) Af Amer 129, Est GFR (MDRD) Non-Af 107, BUN/Creatinine Ratio 22.5 H, Glucose 206 H, Calcium 8.1 L 02/10/19 22:06: POC Glucose 234 H 02/11/19 06:37: POC Glucose 152 H Current Medications Acetaminophen (Tylenol) 650 mg PO Q6H PRN PRN PRN Reason: Mild Pain (1-3)/Temp > 100.7 F Hydrocodone Bitart/Acetaminophen (Sunset 5mg-325mg) 2 tablet PO Q4H PRN PRN PRN Reason: SEVERE PAIN (6-10/10) Atorvastatin Calcium (Lipitor) 20 mg PO QHS [facility] Last Admin: 02/10/19 22:08 Dose: 20 mg Dextrose (D50w Syringe) 0 gm IV X1 PRN; Protocol PRN Reason: Hypoglycemia Enoxaparin Sodium (Lovenox) 40 mg SC DAILY@1000 DAPHNEY Furosemide (Lasix) 40 mg PO DAILY PRN PRN Reason: edema Gabapentin (Neurontin) 300 mg PO QPM [facility] Last Admin: 02/10/19 21:00 Dose: 300 mg Glucagon () 1 mg IM .X1 PRN PRN Reason: Hypoglycemia Levofloxacin (Levaquin Iv) 750 mg in 150 mls @ 100 mls/hr IV Q24 DAPHNEY Vancomycin IV Pharmacy to Dose (1 ea/ Sodium Chloride) 500 mls @ 250 mls/hr IV PRN PRN; Protocol PRN Reason: Rx to Dose Sodium Chloride () 250 mls @ 15 mls/hr IV .[id number] PRN PRN Reason: SALINE FLUSH Last Admin: 02/10/19 20:24 Dose: 15 mls/hr Vancomycin HCl 1,500 mg/ (Sodium Chloride) 530 mls @ 250 mls/hr IV Q8H [facility] Last Admin: 02/11/19 05:31 Dose: 250 mls/hr Insulin Glargine (Lantus (Bkc)) 22 units SC QHS DAPHNEY Last Admin: 02/10/19 22:08 Dose: 22 units Insulin Human Lispro (Humalog Kwikpen (Bkc)) 0 unit SQ TIDAC [facility]; Protocol Linagliptin (Tradjenta) 5 mg PO DAILY DAPHNEY Magnesium Hydroxide (Milk Of Magnesia) 30 ml PO DAILY PRN PRN PRN Reason: Constipation Morphine Sulfate () 2 - 4 mg IV Q4H PRN PRN PRN Reason: BREAKTHROUGH PAIN (>4/10) Nutritional Formula ([place] - [employer] Flavor) 2 packet PO BIDCM [facility] Nystatin (Mycostatin Powder) 1 applic TOPICAL BID DAPHNEY; Protocol Last Admin: 02/10/19 22:43 Dose: 1 applicatio Oxycodone HCl (Oxyir) 5 - 10 mg PO Q4H PRN PRN PRN Reason: MOD-SEVERE PAIN (4-10/10) Last Admin: 02/11/19 02:27 Dose: 10 mg Sodium Chloride () 5 - 15 ml IV UD PRN PRN Reason: SALINE FLUSH Medical Necessity - Tobacco Use Smoking Status: Former smoker Tobacco Use: Non-smoker Assessment/Plan All Active Problems Osteomyelitis of fibula (Acute) The patient is a 53 y/o M w/ PMHx: Morbid Obesity, Diabetes mellitus type II, HTN, HLD who presents to the [facility] on 02/10/[address] Mcnally w/ history of RLE chronic osteomyelitis with delayed wound healing and exposed tissue with necrosis, failed outpatient abx therapies w/ 02/10/19 excision and debridement with tendon and bone biopsies obtained to the E. (1) Right Fibrula Osteomyelitis, Chronic R Lateral Ankle Ulcer, Failed outpatient abx therapy: Admitted to [place], 02/10/19 OR w/ Dr. Mcnally w/ subcutaneous excisional debridement to the right medial forefoot, right dorsal foot, right ulcer third toe ulcers, right proximal medial leg ulcer with debridement of bone and necrotizing tendon of the right lateral ankle including the fibula bone with a biopsy with application of advanced wound care products including amnio fill to all sites and Epicort to lateral ankle sites as well as application of wound VAC to the right leg ulcer site, planned transfer weight bearing status only, consult PT for crutch training for discharge planning w/ transfer usage of extremity only, ID consulted, currently maintained on vanc, levaquin and was also administered IV clindamycin janny-operatively but insensitive, adding IV flagyl pending ID evaluation. Wound care per Podiatry discretion, may end up placing VAC to both operative regions. Pain regimen, bowel regimen PRN (2) Diabetes mellitus type II w/ Neuropathy: Continued on oral home regimen, continue home insulin regimen, ADA diet, accu checks w/ ISS, hemoglobin A1c pending, nutrition consulted for education and teaching continued on home gabapentin regimen with consideration for increase if needed for pain control concurrently. (3) Morbid Obesity: Weight loss and lifestyle changes encouraged, nutrition consulted. (4) Hypertension: Continue home regimen including Lasix, PRN hydralazine. (5) Hyperlipidemia: Continue home statin regimen. (6) Intertrigo: Continue nystatin application to affected regions. (7) DVT prophylaxis: SCD to non-surgical extremity, lovenox. Code Visit Inpatient E&M: 33956 Subs Hosp L2
[2019-02-11 07:09] LABS: Absolute Lymphocyte Count 1.43 X10^3/ul (0.83-4.51); Absolute Neutrophil Count 8.5 X10^3/uL (2.0-7.7); Basophil# 0.07 X10^3/uL; Basophil% 0.6 % (0-1); Eosinophils% 1.8 % (0-5); Hematocrit 33.3 % (40-54); Hemoglobin 10.3 g/dl (13.0-16.5); Lymphocyte # 1.43 X10^3/ul (4.0); Lymphocyte % 12.6 % (19-41); Mean Corp Hgb Conc 30.9 g/gl (32-36); Mean Corpuscular Hgb 27.4 pg (27.0-32.0); Mean Corpuscular Volume 88.6 fL (80-94); Mean Platelet Vol. 10.2 fl (6.2-12.0); Monocyte# 1.09 X10^3/uL; Monocyte% 9.6 % (0-10); Neutrophil # 8.52 X10^3/uL (2.7-7.7); Neutrophil % 75.2 % (47-70); Platelet Count 279 K/mm3 (150-450); RBC Distribution Width CV 14.9 % (11.6-14.6); RBC Distribution Width SD 47.3 fl (35.1-43.9); Red Blood Count 3.76 M/mm3 (4.6-6.2); White Blood Count 11.3 K/mm3 (4.4-11.0)
[2019-02-11 07:10] LABS: POSITIVE COUNT NO; POSITIVE DIFFERENTIAL NO; POSITIVE MORPHOLOGY NO
[2019-02-11 07:40] LABS: Anion Gap 7 (5-15); BUN 15 mg/dL (7-18); BUN/Creat Ratio 19.7 RATIO (10-20); Chloride 105 mmol/L (98-107); Creatinine, Serum 0.76 mg/dL (0.70-1.30); EST Glomerular Filtration Rate 113 mL/min (>60); Est Glom Filt Rate - Afr Amer 136 mL/min (>60); Glucose 157 mg/dL (74-106); Sodium Level 138 mmol/L (136-145)
[2019-02-11 08:36] VITALS: BP 145/84; PULSE 84; RESP 20; TEMP 36.7; O2SAT 94
[2019-02-11] MEDS: HYDROcodone Bitartrate/Apap 5/325 Tablet PO ×3 (08:44→22:06)
--- NOTE | 2019-02-11 09:51 | PCM.PROGNOTE ---
Patient Problems: Active and Suspected Problems Osteomyelitis of fibula (Acute) Subjective: This patient was seen bedside post operative day #1 right lower extremity. He denies fever, chill, nausea, vomiting, chest pain, shortness of breath, loss of appetite. His pain is moderate but decreased compared to yesterday. He is been trying to keep pressure off of his ulcer sites as recommended with pillow and blanket placement. - Physical Exam General: Alert, Oriented x3, Cooperative HEENT: Atraumatic Extremities: No cyanosis, Capillary Refill Less than 3 Seconds, No Calf Tenderness - negative miguel and aponte sign right lower extremity, Diminished Peripheral Pulses, Edema Skin: Ulcer/ Wound - Wound VAC right proximal medial leg remains intact without leaking. Advance wound care product remains intact with overlying Adaptic to all other ulcer sites. There is no streaking or purulence on expression no visualized necrosis. The odor has resolved. No bogginess on palpation. Musculoskeletal: No Tenderness to Palpation of Joints or Extremities, Muscle Wasting, - - Active range of motion digits 2, 3, 4, 5. Compartments remain soft to palpate right lower extremity Neurological: - - Lack of epicritic sensation light touch consistent with neuropathy Psych/Mental Status: Normal Affect, Appropriate Vital Signs Temp Pulse Resp BP Pulse Ox 98.1 F 84 20 H 145/84 H 94 02/11/19 08:36 02/11/19 08:36 02/11/19 08:36 02/11/19 08:36 02/11/19 08:36 Oxygen Delivery Method Room Air Weight: 183.251 kg Body Mass Index (BMI) 47.9 Intake and Output for Last 24 Hours 02/09/19 02/10/19 02/11/19 23:59 23:59 23:59 Intake Total 1800 / 1800 2024 Output Total 900 / 900 Balance 1800 / 1800 1125 / 1125 Laboratory Tests Past 24 Hrs 02/10/19 02/11/19 02/11/19 21:00 06:27 06:27 WBC 11.3 H RBC 3.76 L Hgb 10.3 L Hct 33.3 L MCV 88.6 MCH 27.4 MCHC 30.9 L RDW 14.9 H RDW Differential 47.3 H Plt Count 279 MPV 10.2 Immature Gran % (Auto) 0.200 Neut % (Auto) 75.2 H Lymph % (Auto) 12.6 L [place] % (Auto) 9.6 Eos % (Auto) 1.8 Baso % (Auto) 0.6 Absolute Neuts (auto) 8.5 H Absolute Lymphs (auto) 1.43 Total Counted Not Reportable Sodium 136 138 Potassium 3.9 4.0 Chloride 104 105 Carbon Dioxide 28.0 26.0 Anion Gap 4 L 7 BUN 18 15 Creatinine 0.80 0.76 Estim Creat Clear Calc 131.48 138.40 Est GFR (MDRD) Af Amer 129 136 Est GFR (MDRD) Non-Af 107 113 BUN/Creatinine Ratio 22.5 H 19.7 Glucose 206 H 157 H Hemoglobin A1c Calcium 8.1 L 8.0 L Magnesium 02/11/19 02/11/19 06:27 06:27 WBC RBC Hgb Hct MCV MCH MCHC RDW RDW Differential Plt Count MPV Immature Gran % (Auto) Neut % (Auto) Lymph % (Auto) [place] % (Auto) Eos % (Auto) Baso % (Auto) Absolute Neuts (auto) Absolute Lymphs (auto) Total Counted Sodium Potassium Chloride Carbon Dioxide Anion Gap BUN Creatinine Estim Creat Clear Calc Est GFR (MDRD) Af Amer Est GFR (MDRD) Non-Af BUN/Creatinine Ratio Glucose Hemoglobin A1c 7.0 H Calcium Magnesium 2.0 POC Glucose 02/11/19 02/10/19 02/10/19 06:37 22:06 17:20 POC Glucose 152 H 234 H 156 H 02/10/19 13:48 POC Glucose 170 H Medical Necessity - Tobacco Use Smoking Status: Former smoker Tobacco Use: Non-smoker Assessment/Plan All Active Problems Osteomyelitis of fibula (Acute) Postoperative day #1 debridement of nonviable and infected tissue of the right lateral ankle including tendon and bone with a bone biopsy Debridement of subcutaneous tissue ulcers of the right leg dorsal foot dorsal medial foot and dorsal third toe Application of advanced wound care products to other ulcer sites Application of wound VAC to right medial leg Right lateral ankle ulcer infection with osteomyelitis Diabetes with neuropathy, hemoglobin A1c of 7.0 Peripheral vascular disease status post intervention I reviewed and discussed his case today. Is noted he does have mild leukocytosis. His vitals are stable and he remains afebrile today. His microbiology cultures and pathology from surgery are pending. Preoperative cultures from clinic demonstrate multi-organism growth. He continues on levofloxacin and vancomycin at this time. I recommend an additional anaerobic coverage such as Flagyl until infectious disease consultation is completed. Infectious diseases is on consultation and input will be greatly appreciated. His secondary dressings were changed today and there is resolution of odor and there is no erythema or purulence on expression. His wound VAC remains intact to the right proximal medial leg without evidence of leaking. The lateral ankle ulcer site will need to be closely monitored over the weekend and he understands serial debridement and irrigation may be needed. A wound vac will only be considered if there is continued resolution of infection. He understands he is at high risk for limb loss and systemic illness due to this condition. It is ok to transfer with foot weightbearing. To use assistive device for ambulation assistance and remain non weightbearing otherwise. A splint will be applied prior to discharge. Medical management per medical team is appreciated. Please not hesitate to call if you have any questions. Teri Mcnally DPM, [facility] [phone]
[2019-02-11] MEDS: levoFLOXacin IV 750 MG/150 ML BAG 100 MG IV (10:50)
[2019-02-11] MEDS: Nystatin Powder 15gm Bottle 1 APPLIC TOPICAL ×2 (10:51→22:07)
[2019-02-11] MEDS: Enoxaparin 40 MG/0.4 ML Syringe SC (10:51)
[2019-02-11] MEDS: LINAGLIPTIN 5 MG TABLET PO (10:51)
[2019-02-11] MEDS: Morphine 2 MG/ML Syringe IV (10:55)
[2019-02-11] MEDS: Insulin Lispro 100 UNIT/ML INSULN.PEN SC ×3 (11:40→22:05)
[2019-02-11 11:45] LABS: Bedside Glucose 176 mg/dL (70-110)
--- NOTE | 2019-02-11 13:01 | CASEMGMT ---
Assessment- SW met with patient. Introduced self and role at [facility]. Patient in agreement with SW completing assessment. Living situation- Patient lives alone in a two story home. He is set up on 1 level. PCP: Dr Yohan Medina Specialists: Dr Toni Tolbert- Vascular Surgeon [facility] DME: Crutches, rollator, standard walker, comfort height commode, and shower chair ADL's/IADL's: Patient uses his walker and rollator all the time. He uses his shower chair and comfort height commode. He manages his own medications. He drives. He makes his own meals and does his own housework. Past SNF/rehab: [facility]- If home health is needed this is the agency he prefers LW: No. POA: No. Plan: Patient plans on returning home at d/c. SW let him know that if he has any d/c needs RN CM or SW will assist with this. He did say he does not want to go to a [facility]ci. He said if he needs home health he prefers [facility]. Marichuy [facility]
--- NOTE | 2019-02-11 13:03 | PCM.HP.ID ---
Problem List (1) Osteomyelitis of fibula Status: Acute Qualifiers: Osteomyelitis type: other acute Laterality: right Qualified Code(s): M86.161 - Other acute osteomyelitis, right tibia and fibula Reason for Consult: osteo Consulted by: Dr. Mcnally History of Present Illness: The patient is a 53 year old M with PVD, who burned R foot about 6 months ago, dealing with chronic wound since. Sees Dr. Mcnally at wound care center. C/o 2 weeks of worsening pain, redness, swelling. No fever. Wound cx sent 02/02, he was started on doxy, clinda, and cipro without improvement. MRI showed new osteo, taken to OR 02/10 for I&D. Now on vanc, levaquin, and flagyl. He reports anaphylaxis with PCN at age [age], but has tolerated amox, augmentin, and keflex with no issue since then. Full ROS performed and neg except as noted above. - Medical History Past Medical History (Chronic Problems): Chronic Problems Osteomyelitis (Chronic) Ulcer of right lower extremity with fat layer exposed (Chronic) Ulcer of right foot with fat layer exposed (Chronic) Other specified peripheral vascular diseases (Chronic) Malnutrition (Chronic) Delayed wound healing (Chronic) Type 2 diabetes mellitus with diabetic polyneuropathy (Chronic) Localized edema (Chronic) Ulcer of right lower extremity with necrosis of muscle (Chronic) Allergies/Adverse Reactions: Allergies Penicillins [PCN] Allergy (Verified 02/10/19 13:45) Anaphylaxis Home Medications: Ambulatory Orders Medication Instructions Recorded Gabapentin [Neurontin] 300 mg PO DAILY 09/30/18 Insulin Glargine,Hum.rec.anlog 22 unit SQ QHS 09/30/18 [Lantus] Naproxen Sodium [Aleve] 440 mg PO BID 09/30/18 Sitagliptin Phosphate [Januvia] 100 mg PO DAILY 09/30/18 Oxycodone [Oxyir] 5 mg PO Q6H PRN PRN 01/19/19 Atorvastatin Calcium [Lipitor] 20 mg PO QHS 02/09/19 Furosemide [Lasix] 40 mg PO DAILY PRN 02/09/19 - Social History SMOKING STATUS:: Former smoker Vital Signs Temp Pulse Resp BP Pulse Ox 98.1 F 84 20 H 145/84 H 94 02/11/19 08:36 02/11/19 08:36 02/11/19 08:36 02/11/19 08:36 02/11/19 08:36 Oxygen Delivery Method Room Air Weight: 183.2 kg Body Mass Index (BMI) 47.9 Microbiology Past 72 Hours 02/10/19 16:58 Gram Stain - Final Tissue - Other Wound Culture - Preliminary Gram positive organism 02/10/19 16:58 Gram Stain - Final Bone - Other Wound Culture - Preliminary Gram positive organism Laboratory Tests Past 24 Hrs 02/10/19 02/11/19 02/11/19 21:00 06:27 06:27 WBC 11.3 H RBC 3.76 L Hgb 10.3 L Hct 33.3 L MCV 88.6 MCH 27.4 MCHC 30.9 L RDW 14.9 H RDW Differential 47.3 H Plt Count 279 MPV 10.2 Immature Gran % (Auto) 0.200 Neut % (Auto) 75.2 H Lymph % (Auto) 12.6 L [place] % (Auto) 9.6 Eos % (Auto) 1.8 Baso % (Auto) 0.6 Absolute Neuts (auto) 8.5 H Absolute Lymphs (auto) 1.43 Total Counted Not Reportable Sodium 136 138 Potassium 3.9 4.0 Chloride 104 105 Carbon Dioxide 28.0 26.0 Anion Gap 4 L 7 BUN 18 15 Creatinine 0.80 0.76 Estim Creat Clear Calc 131.48 138.40 Est GFR (MDRD) Af Amer 129 136 Est GFR (MDRD) Non-Af 107 113 BUN/Creatinine Ratio 22.5 H 19.7 Glucose 206 H 157 H Hemoglobin A1c Calcium 8.1 L 8.0 L Magnesium 02/11/19 02/11/19 06:27 06:27 WBC RBC Hgb Hct MCV MCH MCHC RDW RDW Differential Plt Count MPV Immature Gran % (Auto) Neut % (Auto) Lymph % (Auto) [place] % (Auto) Eos % (Auto) Baso % (Auto) Absolute Neuts (auto) Absolute Lymphs (auto) Total Counted Sodium Potassium Chloride Carbon Dioxide Anion Gap BUN Creatinine Estim Creat Clear Calc Est GFR (MDRD) Af Amer Est GFR (MDRD) Non-Af BUN/Creatinine Ratio Glucose Hemoglobin A1c 7.0 H Calcium Magnesium 2.0 - Other Studies Radiology: [] reviewed Other Studies: [] Route of nutrition/ use of supplements: [] Nutritional Intake: [] IV Site: [] Arita Catheter: [] - Physical Exam General: Alert, Oriented x3, Cooperative, No apparent distress HEENT: Atraumatic, PERRLA, EOMI Neck: Supple, No Nodes Lungs: Clear to auscultation, Normal air movement Cardiovascular: Regular rate, Regular Rhythm Abdomen: Soft, Non Tender, Non-Distended, Obese Extremities: Edema - mild Skin: Incision - RLE wrapped s/p OR IV Site: Peripheral, without redness Musculoskeletal: No Tenderness to Palpation of Joints or Extremities Neurological: Cranial nerves II-XII grossly intact - Assessment/Plan Antibiotics: [] Assessment/Plan: [] Active and Suspected Problems Osteomyelitis of fibula (Acute) RLE osteo of ankle - now s/p OR by Dr. Mcnally for I&D on 02/10. Surg cx pending. Wound cx 02/02 with PsA, MSSA, efaecalis, corynebacteria, and anaerobes. Reports no issue with amox/augmentin/keflex in past. Will change abx to zosyn which should cover all past growth well. Plan will be for 6 weeks iv abx at discharge. Will follow, thank you. D/w Dr. Mcnally.
--- NOTE | 2019-02-11 13:27 | NURSING ---
phoned email developer to inform of order for PICC LINE.
[2019-02-11 14:00] VITALS: BP 154/72; PULSE 86; RESP 20; TEMP 36.7; O2SAT 98
--- NOTE | 2019-02-11 16:00 | NURSING ---
PICC line placement in progress
[2019-02-11 16:25] LABS: Bedside Glucose 155 mg/dL (70-110)
[2019-02-11] MEDS: Gabapentin 300 MG Capsule PO (17:45)
[2019-02-11 20:00] VITALS: BP 135/70; PULSE 94; RESP 18; TEMP 36.9; O2SAT 96
[2019-02-11] MEDS: Atorvastatin Calcium 20 MG Tablet PO (22:07)
[2019-02-11 22:21] LABS: Bedside Glucose 184 mg/dL (70-110)
[2019-02-12 02:00] VITALS: BP 129/66; PULSE 87; RESP 18; TEMP 36.6; O2SAT 96
[2019-02-12] MEDS: Insulin Lispro 100 UNIT/ML INSULN.PEN SC ×4 (06:15→22:44)
[2019-02-12] MEDS: HYDROcodone Bitartrate/Apap 5/325 Tablet PO ×3 (06:20→18:25)
[2019-02-12 06:30] LABS: Bedside Glucose 162 mg/dL (70-110)
[2019-02-12 06:53] LABS: Absolute Lymphocyte Count 0.86 X10^3/ul (0.83-4.51); Absolute Neutrophil Count 10.5 X10^3/uL (2.0-7.7); Basophil# 0.04 X10^3/uL; Basophil% 0.3 % (0-1); Eosinophil# 0.17 X10^3/uL; Eosinophils% 1.4 % (0-5); Hematocrit 32.7 % (40-54); Hemoglobin 10.4 g/dl (13.0-16.5); Lymphocyte # 0.86 X10^3/ul (4.0); Lymphocyte % 6.9 % (19-41); Mean Corp Hgb Conc 31.8 g/gl (32-36); Mean Corpuscular Hgb 27.2 pg (27.0-32.0); Mean Corpuscular Volume 85.6 fL (80-94); Monocyte# 0.91 X10^3/uL; Monocyte% 7.3 % (0-10); Neutrophil # 10.53 X10^3/uL (2.7-7.7); Neutrophil % 83.9 % (47-70); POSITIVE COUNT NO; POSITIVE DIFFERENTIAL NO; POSITIVE MORPHOLOGY NO; Platelet Count 286 K/mm3 (150-450); RBC Distribution Width CV 14.8 % (11.6-14.6); RBC Distribution Width SD 44.6 fl (35.1-43.9); Red Blood Count 3.82 M/mm3 (4.6-6.2); White Blood Count 12.5 K/mm3 (4.4-11.0)
--- NOTE | 2019-02-12 07:02 | PCM.PN.HOSP ---
Patient Problems: Active and Suspected Problems Osteomyelitis of fibula (Acute) Subjective: Patient without any acute events overnight per patient and RN report. He has been less apt to move despite encouragement. Discussed with RN and podiatry and will encourage patient to be out of bed with all meals. Patient evaluation per podiatry this morning with more foul smell from distal wound, no purulent material expressed but concerning appearance with planned washout and possible operative needs pending reevaluation tomorrow. Patient denies fevers, chills, nausea, emesis, abdominal pain, chest pain or dyspnea. Objective: Physical Examination: General: awake, alert, oriented x 3 and cooperative, seated upright in bed, currently having wound care per podiatry, ongoing discomfort. Skin: normal color, turgor, no icterus, cyanosis right lower extremity status post recent operative intervention, dressing down per Podiatry, distal wound more foul smelling, tissue still appears to have some necrotic around the edges, no evidence of purulent material able to be expressed, minimal slough present, while shopping performed currently by podiatry. HEENT: AT/NC, EOMI, PERRLA, MMM. Lungs: CTA bilaterally, moderate effort, mild decrease BL bases, no rales, ronchi or wheezing. Heart: Regular rate and rhythm; no gallop, rub audible. Abdomen: soft, overly obese, NTTP, ND, normal BS. Extremities: no cyanosis, clubbing, see skin. Neurological: patient awake, alert, oriented x 3; cognitive function intact; pupils equally reactive to light and accomodation; cranial nerves II-XII grossly normal, moving all 4 extremities although limited by recent intervention to the right lower extremity, strength accordingly moderately to severely globally decreased. Psychiatric: affect appears mildly strained currently secondary to pain, no acute evidence of depressive or anxiety feelings. Vitals/I&O's: Vital Signs Temp Pulse Resp BP Pulse Ox 97.9 F 87 18 129/66 H 96 02/12/19 02:00 02/12/19 02:00 02/12/19 02:00 02/12/19 02:00 02/12/19 02:00 Oxygen Delivery Method Room Air Weight: 403 lb 14.189 oz Body Mass Index (BMI) 47.9 Intake and Output for Last 24 Hours 02/10/19 02/11/19 02/12/19 23:59 23:59 23:59 Intake Total 1800 / 1800 3643 / 3643 1431 / 1431 Output Total 1875 / 1875 1325 / 1325 Balance 1800 / 1800 1768 / 1768 106 / 106 Microbiology Past 72 Hours 02/10/19 16:58 Tissue - Other Gram Stain - Final 02/10/19 16:58 Tissue - Other Wound Culture - Preliminary Gram positive organism 02/10/19 16:58 Bone - Other Gram Stain - Final 02/10/19 16:58 Bone - Other Wound Culture - Preliminary Gram positive organism Laboratory Results 02/11/19 06:27: WBC 11.3 H, RBC 3.76 L, Hgb 10.3 L, Hct 33.3 L, MCV 88.6, MCH 27.4, MCHC 30.9 L, RDW 14.9 H, RDW Differential 47.3 H, Plt Count 279, MPV 10.2, Immature Gran % (Auto) 0.200, Neut % (Auto) 75.2 H, Lymph % (Auto) 12.6 L, [place] % (Auto) 9.6, Eos % (Auto) 1.8, Baso % (Auto) 0.6, Absolute Neuts (auto) 8.5 H, Absolute Lymphs (auto) 1.43, Total Counted Not Reportable 02/11/19 06:27: Sodium 138, Potassium 4.0, Chloride 105, Carbon Dioxide 26.0, Anion Gap 7, BUN 15, Creatinine 0.76, Estim Creat Clear Calc 138.40, Est GFR (MDRD) Af Amer 136, Est GFR (MDRD) Non-Af 113, BUN/Creatinine Ratio 19.7, Glucose 157 H, Calcium 8.0 L 02/11/19 06:27: Magnesium 2.0 02/11/19 06:27: Hemoglobin A1c 7.0 H 02/11/19 11:39: POC Glucose 176 H 02/11/19 16:03: POC Glucose 155 H 02/11/19 22:03: POC Glucose 184 H 02/12/19 06:14: POC Glucose 162 H 02/12/19 06:17: WBC 12.5 H, RBC 3.82 L, Hgb 10.4 L, Hct 32.7 L, MCV 85.6, MCH 27.2, MCHC 31.8 L, RDW 14.8 H, RDW Differential 44.6 H, Plt Count 286, MPV 10.0, Immature Gran % (Auto) 0.200, Neut % (Auto) 83.9 H, Lymph % (Auto) 6.9 L, [place] % (Auto) 7.3, Eos % (Auto) 1.4, Baso % (Auto) 0.3, Absolute Neuts (auto) 10.5 H, Absolute Lymphs (auto) 0.86, Total Counted Not Reportable 02/12/19 06:17: Sodium Pending, Potassium Pending, Chloride Pending, Carbon Dioxide Pending, Anion Gap Pending, BUN Pending, Creatinine Pending, Est GFR (MDRD) Af Amer Pending, Est GFR (MDRD) Non-Af Pending, BUN/Creatinine Ratio Pending, Glucose Pending, Calcium Pending Current Medications Acetaminophen (Tylenol) 650 mg PO Q6H PRN PRN PRN Reason: Mild Pain (1-3)/Temp > 100.7 F Hydrocodone Bitart/Acetaminophen ([place] 5mg-325mg) 2 tablet PO Q4H PRN PRN PRN Reason: SEVERE PAIN (6-10/10) Last Admin: 02/12/19 06:20 Dose: 2 tablet Atorvastatin Calcium (Lipitor) 20 mg PO QHS [facility] Last Admin: 02/11/19 22:07 Dose: 20 mg Dextrose (D50w Syringe) 0 gm IV X1 PRN; Protocol PRN Reason: Hypoglycemia Enoxaparin Sodium (Lovenox) 40 mg SC DAILY@1000 DAPHNEY Last Admin: 02/11/19 10:51 Dose: 40 mg Furosemide (Lasix) 40 mg PO DAILY PRN PRN Reason: edema Gabapentin (Neurontin) 300 mg PO TIDCM [facility] Last Admin: 02/11/19 17:45 Dose: 300 mg Glucagon () 1 mg IM .X1 PRN PRN Reason: Hypoglycemia Sodium Chloride () 250 mls @ 15 mls/hr IV .[id number] PRN PRN Reason: SALINE FLUSH Last Admin: 02/10/19 20:24 Dose: 15 mls/hr Piperacillin Sod/Tazobactam (Sod 3.375 gm/ Sodium Chloride) 50 mls @ 12.5 mls/hr IV Q8 [facility] Last Admin: 02/12/19 06:08 Dose: 12.5 mls/hr Insulin Glargine (Lantus (Bkc)) 22 units SC QHS [facility] Last Admin: 02/11/19 22:04 Dose: 22 units Insulin Human Lispro (Humalog Kwikpen (Bkc)) 0 unit SC ACHS [facility]; Protocol Last Admin: 02/12/19 06:15 Dose: 1 unit Linagliptin (Tradjenta) 5 mg PO DAILY [facility] Last Admin: 02/11/19 10:51 Dose: 5 mg Magnesium Hydroxide (Milk Of Magnesia) 30 ml PO DAILY PRN PRN PRN Reason: Constipation Morphine Sulfate () 2 - 4 mg IV Q4H PRN PRN PRN Reason: BREAKTHROUGH PAIN (>4/10) Last Admin: 02/11/19 10:55 Dose: 4 mg Nutritional Formula ([place] [facility]) [facility] Last Admin: 02/11/19 17:45 Dose: 2 packet Nystatin (Mycostatin Powder) 1 applic TOPICAL BID [facility]; Protocol Last Admin: 02/11/19 22:07 Dose: 1 applicatio Oxycodone HCl (Oxyir) 5 - 10 mg PO Q4H PRN PRN PRN Reason: MOD-SEVERE PAIN (4-10/10) Last Admin: 02/11/19 02:27 Dose: 10 mg Sodium Chloride () 5 - 15 ml IV UD PRN PRN Reason: SALINE FLUSH Medical Necessity - Tobacco Use Smoking Status: Former smoker Tobacco Use: Non-smoker Assessment/Plan All Active Problems Osteomyelitis of fibula (Acute) The patient is a 53 y/o M w/ PMHx: Morbid Obesity, Diabetes mellitus type II, HTN, HLD who presents to the [facility] on 02/10/[address] Mcnally w/ history of RLE chronic osteomyelitis with delayed wound healing and exposed tissue with necrosis, failed outpatient abx therapies w/ 02/10/19 excision and debridement with tendon and bone biopsies obtained to the RLE. (1) Right Fibrula Osteomyelitis, Chronic R Lateral Ankle Ulcer, Infected, Failed outpatient abx therapy, Enterococcal Faecalis, Staphylococcus Aureus: Admitted to [place], 02/10/19 OR w/ Dr. Mcnally w/ subcutaneous excisional debridement to the right medial forefoot, right dorsal foot, right ulcer third toe ulcers, right proximal medial leg ulcer with debridement of bone and necrotizing tendon of the right lateral ankle including the fibula bone with a biopsy with application of advanced wound care products including amnio fill to all sites and Epicort to lateral ankle sites as well as application of wound VAC to the right leg ulcer site. Currently OR Wound Cx w/ GP organisms. Wound cx 02/02/19 with PSA, MSSA, E. faecalis, corynebacteria, and anaerobes. Abx per ID transitioned to Zosyn. Plan 6 weeks IV abx therapy at discharge. Planned transfer weight bearing status only, consulted PT for crutch training for discharge planning w/ transfer usage of extremity only. Pain regimen, bowel regimen PRN. Podiatry dressing change 02/12/19 with foul smell, improved but still not ideal, washout planned today and likely 02/13/19, if not improved appearance may need return to OR 02/13/19, will maintain NPO status after midnight in case of return to OR needs. Patient has been previously been re-vascularized and if not improving may need to consider eventual BKA. (2) Diabetes mellitus type II w/ Neuropathy: Continued on oral home regimen, continue home insulin regimen, ADA diet, accu checks w/ ISS, hemoglobin A1c 7.0%, nutrition consulted for education and teaching continued on home gabapentin regimen with consideration for increase if needed for pain control concurrently. (3) Morbid Obesity: Weight loss and lifestyle changes encouraged, nutrition consulted for education and teaching. (4) Hypertension: Continue home regimen including Lasix although PRN agent likely more for lymphedema, PRN hydralazine. (5) Hyperlipidemia: Continue home statin regimen. (6) Intertrigo: Continue nystatin application to affected regions. (7) DVT prophylaxis: SCD to non-surgical extremity, lovenox. Code Visit Inpatient E&M: 94723 Subs Hosp L2
--- NOTE | 2019-02-12 07:06 | PN_ITS ---
Patient Problems: Active and Suspected Problems Osteomyelitis of fibula (Acute) Subjective: Patient without any acute events overnight per patient and RN report. He has been less apt to move despite encouragement. Discussed with RN and podiatry and will encourage patient to be out of bed with all meals. Patient evaluation per podiatry this morning with more foul smell from distal wound, no purulent material expressed but concerning appearance with planned washout and possible operative needs pending reevaluation tomorrow. Patient denies fevers, chills, nausea, emesis, abdominal pain, chest pain or dyspnea. Objective: Physical Examination: General: awake, alert, oriented x 3 and cooperative, seated upright in bed, currently having wound care per podiatry, ongoing discomfort. Skin: normal color, turgor, no icterus, cyanosis right lower extremity status post recent operative intervention, dressing down per Podiatry, distal wound more foul smelling, tissue still appears to have some necrotic around the edges, no evidence of purulent material able to be expressed, minimal slough present, while shopping performed currently by podiatry. HEENT: AT/NC, EOMI, PERRLA, MMM. Lungs: CTA bilaterally, moderate effort, mild decrease BL bases, no rales, ronchi or wheezing. Heart: Regular rate and rhythm; no gallop, rub audible. Abdomen: soft, overly obese, NTTP, ND, normal BS. Extremities: no cyanosis, clubbing, see skin. Neurological: patient awake, alert, oriented x 3; cognitive function intact; pupils equally reactive to light and accomodation; cranial nerves II-XII grossly normal, moving all 4 extremities although limited by recent intervention to the right lower extremity, strength accordingly moderately to severely globally decreased. Psychiatric: affect appears mildly strained currently secondary to pain, no acute evidence of depressive or anxiety feelings. Vitals/I&O's: Vital Signs Temp Pulse Resp BP Pulse Ox 97.9 F 87 18 129/66 H 96 02/12/19 02:00 02/12/19 02:00 02/12/19 02:00 02/12/19 02:00 02/12/19 02:00 Oxygen Delivery Method Room Air Weight: 403 lb 14.189 oz Body Mass Index (BMI) 47.9 Intake and Output for Last 24 Hours 02/10/19 02/11/19 02/12/19 23:59 23:59 23:59 Intake Total 1800 / 1800 3643 / 3643 1431 / 1431 Output Total 1875 / 1875 1325 / 1325 Balance 1800 / 1800 1768 / 1768 106 / 106 Microbiology Past 72 Hours 02/10/19 16:58 Tissue - Other Gram Stain - Final 02/10/19 16:58 Tissue - Other Wound Culture - Preliminary Gram positive organism 02/10/19 16:58 Bone - Other Gram Stain - Final 02/10/19 16:58 Bone - Other Wound Culture - Preliminary Gram positive organism Laboratory Results 02/11/19 06:27: WBC 11.3 H, RBC 3.76 L, Hgb 10.3 L, Hct 33.3 L, MCV 88.6, MCH 27.4, MCHC 30.9 L, RDW 14.9 H, RDW Differential 47.3 H, Plt Count 279, MPV 10.2, Immature Gran % (Auto) 0.200, Neut % (Auto) 75.2 H, Lymph % (Auto) 12.6 L, [place] % (Auto) 9.6, Eos % (Auto) 1.8, Baso % (Auto) 0.6, Absolute Neuts (auto) 8.5 H, Absolute Lymphs (auto) 1.43, Total Counted Not Reportable 02/11/19 06:27: Sodium 138, Potassium 4.0, Chloride 105, Carbon Dioxide 26.0, Anion Gap 7, BUN 15, Creatinine 0.76, Estim Creat Clear Calc 138.40, Est GFR (MDRD) Af Amer 136, Est GFR (MDRD) Non-Af 113, BUN/Creatinine Ratio 19.7, Glucose 157 H, Calcium 8.0 L 02/11/19 06:27: Magnesium 2.0 02/11/19 06:27: Hemoglobin A1c 7.0 H 02/11/19 11:39: POC Glucose 176 H 02/11/19 16:03: POC Glucose 155 H 02/11/19 22:03: POC Glucose 184 H 02/12/19 06:14: POC Glucose 162 H 02/12/19 06:17: WBC 12.5 H, RBC 3.82 L, Hgb 10.4 L, Hct 32.7 L, MCV 85.6, MCH 27.2, MCHC 31.8 L, RDW 14.8 H, RDW Differential 44.6 H, Plt Count 286, MPV 10.0, Immature Gran % (Auto) 0.200, Neut % (Auto) 83.9 H, Lymph % (Auto) 6.9 L, [place] % (Auto) 7.3, Eos % (Auto) 1.4, Baso % (Auto) 0.3, Absolute Neuts (auto) 10.5 H, Absolute Lymphs (auto) 0.86, Total Counted Not Reportable 02/12/19 06:17: Sodium Pending, Potassium Pending, Chloride Pending, Carbon Dioxide Pending, Anion Gap Pending, BUN Pending, Creatinine Pending, Est GFR (MDRD) Af Amer Pending, Est GFR (MDRD) Non-Af Pending, BUN/Creatinine Ratio Pending, Glucose Pending, Calcium Pending Current Medications Acetaminophen (Tylenol) 650 mg PO Q6H PRN PRN PRN Reason: Mild Pain (1-3)/Temp > 100.7 F Hydrocodone Bitart/Acetaminophen ([place] 5mg-325mg) 2 tablet PO Q4H PRN PRN PRN Reason: SEVERE PAIN (6-10/10) Last Admin: 02/12/19 06:20 Dose: 2 tablet Atorvastatin Calcium (Lipitor) 20 mg PO QHS [facility] Last Admin: 02/11/19 22:07 Dose: 20 mg Dextrose (D50w Syringe) 0 gm IV X1 PRN; Protocol PRN Reason: Hypoglycemia Enoxaparin Sodium (Lovenox) 40 mg SC DAILY@1000 DAPHNEY Last Admin: 02/11/19 10:51 Dose: 40 mg Furosemide (Lasix) 40 mg PO DAILY PRN PRN Reason: edema Gabapentin (Neurontin) 300 mg PO TIDCM [facility] Last Admin: 02/11/19 17:45 Dose: 300 mg Glucagon () 1 mg IM .X1 PRN PRN Reason: Hypoglycemia Sodium Chloride () 250 mls @ 15 mls/hr IV .[id number] PRN PRN Reason: SALINE FLUSH Last Admin: 02/10/19 20:24 Dose: 15 mls/hr Piperacillin Sod/Tazobactam (Sod 3.375 gm/ Sodium Chloride) 50 mls @ 12.5 mls/hr IV Q8 [facility] Last Admin: 02/12/19 06:08 Dose: 12.5 mls/hr Insulin Glargine (Lantus (Bkc)) 22 units SC QHS [facility] Last Admin: 02/11/19 22:04 Dose: 22 units Insulin Human Lispro (Humalog Kwikpen (Bkc)) 0 unit SC ACHS [facility]; Protocol Last Admin: 02/12/19 06:15 Dose: 1 unit Linagliptin (Tradjenta) 5 mg PO DAILY [facility] Last Admin: 02/11/19 10:51 Dose: 5 mg Magnesium Hydroxide (Milk Of Magnesia) 30 ml PO DAILY PRN PRN PRN Reason: Constipation Morphine Sulfate () 2 - 4 mg IV Q4H PRN PRN PRN Reason: BREAKTHROUGH PAIN (>4/10) Last Admin: 02/11/19 10:55 Dose: 4 mg Nutritional Formula ([place] - [place] Flavor) [facility] Last Admin: 02/11/19 17:45 Dose: 2 packet Nystatin (Mycostatin Powder) 1 applic TOPICAL BID [facility]; Protocol Last Admin: 02/11/19 22:07 Dose: 1 applicatio Oxycodone HCl (Oxyir) 5 - 10 mg PO Q4H PRN PRN PRN Reason: MOD-SEVERE PAIN (4-10/10) Last Admin: 02/11/19 02:27 Dose: 10 mg Sodium Chloride () 5 - 15 ml IV UD PRN PRN Reason: SALINE FLUSH Medical Necessity - Tobacco Use Smoking Status: Former smoker Tobacco Use: Non-smoker Assessment/Plan All Active Problems Osteomyelitis of fibula (Acute) The patient is a 53 y/o M w/ PMHx: Morbid Obesity, Diabetes mellitus type II, HTN, HLD who presents to the [facility] on 02/10/[address] Mcnally w/ history of RLE chronic osteomyelitis with delayed wound healing and exposed tissue with necrosis, failed outpatient abx therapies w/ 02/10/19 excision and debridement with tendon and bone biopsies obtained to the RLE. (1) Right Fibrula Osteomyelitis, Chronic R Lateral Ankle Ulcer, Infected, Failed outpatient abx therapy, Enterococcal Faecalis, Staphylococcus Aureus: Admitted to [place], 02/10/19 OR w/ Dr. Mcnally w/ subcutaneous excisional debridement to the right medial forefoot, right dorsal foot, right ulcer third toe ulcers, right proximal medial leg ulcer with debridement of bone and necrotizing tendon of the right lateral ankle including the fibula bone with a biopsy with application of advanced wound care products including amnio fill to all sites and Epicort to lateral ankle sites as well as application of wound VAC to the right leg ulcer site. Currently OR Wound Cx w/ GP organisms. Wound cx 02/02/19 with PSA, MSSA, E. faecalis, corynebacteria, and anaerobes. Abx per ID transitioned to Zosyn. Plan 6 weeks IV abx therapy at discharge. Planned transfer weight bearing status only, consulted PT for crutch training for discharge planning w/ transfer usage of extremity only. Pain regimen, bowel regimen PRN. Podiatry dressing change 02/12/19 with foul smell, improved but still not ideal, washout planned today and likely 02/13/19, if not improved appearance may need return to OR 02/13/19, will maintain NPO status after midnight in case of return to OR needs. Patient has been previously been re-vascularized and if not improving may need to consider eventual BKA. (2) Diabetes mellitus type II w/ Neuropathy: Continued on oral home regimen, continue home insulin regimen, ADA diet, accu checks w/ ISS, hemoglobin A1c 7.0%, nutrition consulted for education and teaching continued on home gabapentin regimen with consideration for increase if needed for pain control concurrently. (3) Morbid Obesity: Weight loss and lifestyle changes encouraged, nutrition consulted for education and teaching. (4) Hypertension: Continue home regimen including Lasix although PRN agent likely more for lymphedema, PRN hydralazine. (5) Hyperlipidemia: Continue home statin regimen. (6) Intertrigo: Continue nystatin application to affected regions. (7) DVT prophylaxis: SCD to non-surgical extremity, lovenox. Code Visit Inpatient E&M: 07053 Subs Hosp L2
[2019-02-12 07:12] LABS: Anion Gap 2 (5-15); BUN 17 mg/dL (7-18); Calcium,Total 8.3 mg/dL (8.5-10.1); Chloride 105 mmol/L (98-107); Creatinine, Serum 0.68 mg/dL (0.70-1.30); EST Glomerular Filtration Rate 128 mL/min (>60); Est Glom Filt Rate - Afr Amer 155 mL/min (>60); Estimated Creatinine Clearance 154.69 ml/min; Glucose 161 mg/dL (74-106); Potassium 4.1 mmol/L (3.5-5.1); Sodium Level 135 mmol/L (136-145)
[2019-02-12 08:00] VITALS: BP 149/64; PULSE 84; RESP 20; TEMP 36.7; O2SAT 97
[2019-02-12] MEDS: Gabapentin 300 MG Capsule PO ×3 (08:23→17:03)
--- NOTE | 2019-02-12 08:55 | PN_ITS ---
Patient Problems: Active and Suspected Problems Osteomyelitis of fibula (Acute) Subjective: This patient was seen bedside post operative day #2 right lower extremity. He denies fever, chill, nausea, vomiting, chest pain, shortness of breath. His pain is decreased to a 3 or a 4 out of 10. He has continued loss of appetite and he does notice a return of partial odor. Upon evaluation today, he is positioned so pressure is being applied directly to the concerning ulcer site to the lateral ankle. - Physical Exam General: Alert, Oriented x3, Cooperative HEENT: Atraumatic Extremities: Capillary Refill Less than 3 Seconds - Digits 345 and less than 4 seconds to digits 2 and also janny-ulcer site on the lateral ankle, No Calf Tenderness - Negative Costa sign bilateral, Diminished Peripheral Pulses, Edema - Moderate right lower extremity, Tenderness - pain with ulcer manipulation Skin: Ulcer/ Wound - The wound VAC is intact to the right proximal medial leg. The previous advance wound care products to the dorsal and dorsal medial foot are intact with overlying Adaptic. The right lateral ankle wound site has progressive devitalization and dysvascular appearance compared to yesterday but still an improvement compared to preoperatively. There is dusky peripheral ulcer site and partially liquefied soft tissue including the tendon and terrell discoloration to the distal fibula. There is no purulence on expression around the wound margins are extended incisional sites. There is no new blisters or bogginess on palpation around the ulcer site. The compartments to the right lower extremity remain soft. The skin in general is atrophic and hairless Musculoskeletal: No Tenderness to Palpation of Joints or Extremities, Muscle Wasting, - - Hallux amputation. Active range of motion remaining toes Neurological: - - Lack of normal epicritic sensation consistent with neuropathy right Psych/Mental Status: Normal Affect, Appropriate Vital Signs Temp Pulse Resp BP Pulse Ox 97.9 F 87 18 129/66 H 96 02/12/19 02:00 02/12/19 02:00 02/12/19 02:00 02/12/19 02:00 02/12/19 02:00 Oxygen Delivery Method Room Air Weight: 183.2 kg Body Mass Index (BMI) 47.9 Intake and Output for Last 24 Hours 02/10/19 02/11/19 02/12/19 23:59 23:59 23:59 Intake Total 1800 / 1800 3643 / 3643 1431 / 1431 Output Total 1875 / 1875 1325 / 1325 Balance 1800 / 1800 1768 / 1768 106 / 106 Microbiology Past 72 Hours 02/10/19 16:58 Gram Stain - Final Tissue - Other Wound Culture - Preliminary Enterococcus faecalis Staphylococcus aureus 02/10/19 16:58 Gram Stain - Final Bone - Other Wound Culture - Preliminary GPC Poss Enterococcus sp Laboratory Tests Past 24 Hrs 02/12/19 02/12/19 06:17 06:17 WBC 12.5 H RBC 3.82 L Hgb 10.4 L Hct 32.7 L MCV 85.6 MCH 27.2 MCHC 31.8 L RDW 14.8 H RDW Differential 44.6 H Plt Count 286 MPV 10.0 Immature Gran % (Auto) 0.200 Neut % (Auto) 83.9 H Lymph % (Auto) 6.9 L Hardee % (Auto) 7.3 Eos % (Auto) 1.4 Baso % (Auto) 0.3 Absolute Neuts (auto) 10.5 H Absolute Lymphs (auto) 0.86 Total Counted Not Reportable Sodium 135 L Potassium 4.1 Chloride 105 Carbon Dioxide 28.0 Anion Gap 2 L BUN 17 Creatinine 0.68 L Estim Creat Clear Calc 154.69 Est GFR (MDRD) Af Amer 155 Est GFR (MDRD) Non-Af 128 BUN/Creatinine Ratio 25.0 H Glucose 161 H Calcium 8.3 L POC Glucose 02/12/19 02/11/19 02/11/19 06:14 22:03 16:03 POC Glucose 162 H 184 H 155 H 02/11/19 11:39 POC Glucose 176 H Medical Necessity - Tobacco Use Smoking Status: Former smoker Tobacco Use: Non-smoker Assessment/Plan All Active Problems Osteomyelitis of fibula (Acute) Postoperative day #1 debridement of nonviable and infected tissue of the right lateral ankle including tendon and bone with a bone biopsy Debridement of subcutaneous tissue ulcers of the right leg dorsal foot dorsal medial foot and dorsal third toe Application of advanced wound care products to other ulcer sites Application of wound VAC to right medial leg Right lateral ankle ulcer infection with osteomyelitis Diabetes with neuropathy, hemoglobin A1c of 7.0 Peripheral vascular disease status post intervention I reviewed and discussed his case today. Is noted he does continued leukocytosis. His vitals are stable and he remains afebrile today. His final microbiology cultures and pathology from surgery are pending. So far there is Staphylococcus aureus and enterococcus facialis growth. It is noted he continued on Zosyn at this time. I recommend the addition of vancomycin to better cover the Enterococcus faecalis. Preoperative cultures from clinic demonstrate multi-organism growth. Blood cultures will also be obtained. Infectious diseases evaluation is appreciated. PICC line placed. The lateral ankle ulcer site does have some odor that has progressed from yesterday and it does appear to be progressively devitalized compared to yesterday's evaluation. This site was copiously irrigated with normal saline and the area was cleaned with an antimicrobial solution. A dressing consisting of Betadine wet-to-dry dressings were applied to this site and this process will be repeated this evening via nursing staff. Serial surgical debridement and washout may be needed and he will be assessed tomorrow morning to see if this is necessary. He will remain n.p.o. after midnight in case this is recommended tomorrow. Ok to continue anticoagulation medication at this time. He understands he is at risk for continued systemic illness and amputation due to the continued infection and systemic response. His wound VAC remains intact to the right proximal medial leg without evidence of leaking. It is ok to transfer with foot weightbearing. To use assistive device for ambulation assistance and remain non weightbearing otherwise. Continue pain control Tylenol and gabapentin. Medical management per medical team is appreciated. Please not hesitate to call if you have any questions. Teri Mcnally DPM, [facility] [phone]
[2019-02-12] MEDS: LINAGLIPTIN 5 MG TABLET PO (10:10)
[2019-02-12] MEDS: Nystatin Powder 15gm Bottle 1 APPLIC TOPICAL ×2 (10:10→22:46)
[2019-02-12] MEDS: Enoxaparin 40 MG/0.4 ML Syringe SC (10:10)
--- NOTE | 2019-02-12 11:57 | PCM.RX.CS ---
Consult Pharmacy has been consulted to manage selected antiobiotic: Vancomycin Type of Consult: New start Suspected Infection: Osteomyelitis Prior Doses of Antibiotics Received/Current Regimen: Patient was previously on 2000mg IV x1, then 1500mg IV q8h with only one dose of the 1500mg given on 02/11/19 at 05:30 before it was discontinued. Labs: Sodium 135 mmol/L (136-145) L 02/12/19 06:17 Potassium 4.1 mmol/L (3.5-5.1) 02/12/19 06:17 Chloride 105 mmol/L (98-107) 02/12/19 06:17 Carbon Dioxide 28.0 mmol/L (21.0-32.0) 02/12/19 06:17 Anion Gap 2 (5-15) L 02/12/19 06:17 BUN 17 mg/dL (7-18) 02/12/19 06:17 Creatinine 0.68 mg/dL (0.70-1.30) L 02/12/19 06:17 Est GFR (MDRD) Af Amer 155 mL/min (>60) 02/12/19 06:17 Est GFR (MDRD) Non-Af 128 mL/min (>60) 02/12/19 06:17 BUN/Creatinine Ratio 25.0 RATIO (10-20) H 02/12/19 06:17 Glucose 161 mg/dL (74-106) H 02/12/19 06:17 Microbiology: Microbiology 02/10/19 16:58 Tissue - Other Gram Stain - Final 02/10/19 16:58 Tissue - Other Wound Culture - Preliminary Enterococcus faecalis Staphylococcus aureus 02/10/19 16:58 Bone - Other Gram Stain - Final 02/10/19 16:58 Bone - Other Wound Culture - Preliminary GPC Poss Enterococcus sp Weight used for dosin kg Estimated Creatinine Clearance: 155 ml/min Goal Trough: 15-20 mcg/mL Pharmacy Plan for Drug Dosing: Vancomycin is now being restarted. Since it has been over 24 hours since the patient received a dose, the patient will again be restarted with a 2000mg dose x1, then continued at 1500mg IV q8h. A trough will be obtained before the 4th dose tomorrow. Pharmacy Service will continue to monitor and adjust dosing as required. Follow-Up Labs: Trough Vancomycin Labs to be done on [date and time ordered]: 02/13/19 11:30
[2019-02-12 12:45] LABS: Bedside Glucose 154 mg/dL (70-110)
[2019-02-12 14:00] VITALS: BP 149/63; PULSE 91; RESP 18; TEMP 36.9; O2SAT 99
[2019-02-12 17:11] LABS: Bedside Glucose 164 mg/dL (70-110)
[2019-02-12 20:00] VITALS: BP 131/74; PULSE 92; RESP 18; TEMP 36.9; O2SAT 96
[2019-02-12] MEDS: oxyCODONE 5 MG Tablet PO (21:09)
[2019-02-12] MEDS: Atorvastatin Calcium 20 MG Tablet PO (22:52)
[2019-02-12 22:55] LABS: Bedside Glucose 174 mg/dL (70-110)
[2019-02-13] MEDS: oxyCODONE 5 MG Tablet PO ×5 (01:30→20:48)
[2019-02-13 02:35] VITALS: BP 141/82; PULSE 85; RESP 18; TEMP 36.7; O2SAT 95
--- NOTE | 2019-02-13 06:59 | PCM.PN.HOSP ---
Patient Problems: Active and Suspected Problems Osteomyelitis of fibula (Acute) Subjective: The patient is a 53 y/o M w/ PMHx: Morbid Obesity, Diabetes mellitus type II, HTN, HLD who presents to the [facility] on 02/10/[address] Mcnally w/ history of RLE chronic osteomyelitis with delayed wound healing and exposed tissue with necrosis, failed outpatient abx therapies w/ 02/10/19 excision and debridement with tendon and bone biopsies obtained to the E. Admitted to [place], 02/10/19 OR w/ Dr. Mcnally w/ subcutaneous excisional debridement to the right medial forefoot, right dorsal foot, right ulcer third toe ulcers, right proximal medial leg ulcer with debridement of bone and necrotizing tendon of the right lateral ankle including the fibula bone with a biopsy with application of advanced wound care products including amnio fill to all sites and Epicort to lateral ankle sites as well as application of wound VAC to the right leg ulcer site. Currently OR Wound Cx w/ GP organisms. Wound cx 02/02/19 with PSA, MSSA, E. faecalis, corynebacteria, and anaerobes. Abx per ID transitioned to Zosyn and Vanc pending finalized cultures. Plan 6 weeks IV abx therapy at discharge. Planned transfer weight bearing status only, consulted PT for crutch training for discharge planning w/ transfer usage of extremity only. Pain regimen, bowel regimen PRN. Podiatry dressing change 02/12/19 with foul smell, improved but still not ideal, washout 02/12/19 bedside. 02/13/19 re-evaluation, bedside debridement performed, excisional tissue debridement and liquefied regions removed, less foul-smelling, planned washout this evening per podiatry request per nursing staff and reassessment in AM. Currently no return to OR needs. Patient at risk given PAD history despite re-vascularization of eventual BKA. Patient with no acute events overnight per self and per nursing report. Patient evaluated today per podiatry with repeat assessment of wound and dressing changes with improved appearance, less odor with excisional subcu anus intended debridement today with removal of liquefied tissue that did remain with some adjacent bleeding tissue noted with hemostasis obtained with a Betadine wet-to-dry dressing applied and possible VAC placement tomorrow if continued improved appearance. Patient notes pain controlled, had increased home gabapentin regimen to 3 times daily as well as ongoing PRN agents. Patient denies fevers, chills, nausea, emesis, abdominal pain, chest pain or dyspnea. Objective: Physical Examination: General: awake, alert, oriented x 3 and cooperative, seated upright in bed, recent bedside debridement as well as washout with dressing now back in place, VAC from additional site with no market purulent discharge in canister noted. Skin: normal color, turgor, no icterus, cyanosis right lower extremity status post recent site debridement again per podiatry, distal wound less foul-smelling per the report, tissue debrided and liquefied regions removed, Betadine wet-to-dry dressing applied and currently dressing with VAC in place over right lower extremity. HEENT: AT/NC, EOMI, PERRLA, MMM. Lungs: CTA bilaterally, moderate effort, mild decrease BL bases, no rales, ronchi or wheezing. Heart: Regular rate and rhythm; no gallop, rub audible. Abdomen: soft, overly obese, NTTP, ND, normal BS. Extremities: no cyanosis, clubbing, see skin. Neurological: patient awake, alert, oriented x 3; cognitive function intact; pupils equally reactive to light and accomodation; cranial nerves II-XII grossly normal, moving all 4 extremities although limited by right lower extremity recent intervention, notable dressing including back, strength accordingly moderately to severely globally decreased. Psychiatric: affect appears normal, denies any acute discomfort, no acute evidence of depressive or anxiety feelings. Vitals/I&O's: Vital Signs Temp Pulse Resp BP Pulse Ox 98.1 F 85 18 141/82 H 95 02/13/19 02:35 02/13/19 02:35 02/13/19 02:35 02/13/19 02:35 02/13/19 02:35 Oxygen Delivery Method Room Air Weight: 403 lb 14.189 oz Body Mass Index (BMI) 47.9 Intake and Output for Last 24 Hours 02/11/19 02/12/19 02/13/19 23:59 23:59 23:59 Intake Total 3643 / 3643 4195 / 4195 1664 / 1664 Output Total 1875 / 1875 2175 / 2175 1200 / 1200 Balance 1768 / 1768 2019 / 2019 464 / 464 Microbiology Past 72 Hours 02/10/19 16:58 Bone - Other Gram Stain - Final 02/10/19 16:58 Bone - Other Wound Culture - Preliminary GPC Poss Enterococcus sp 02/10/19 16:58 Bone - Other Anaerobic Culture - Preliminary Checking for anaerobes, further studies to follow. 02/10/19 16:58 Tissue - Other Gram Stain - Final 02/10/19 16:58 Tissue - Other Wound Culture - Preliminary Enterococcus faecalis Staphylococcus aureus 02/10/19 16:58 Tissue - Other Anaerobic Culture - Preliminary Checking for anaerobes, further studies to follow. Laboratory Results 02/12/19 06:17: Sodium 135 L, Potassium 4.1, Chloride 105, Carbon Dioxide 28.0, Anion Gap 2 L, BUN 17, Creatinine 0.68 L, Estim Creat Clear Calc 154.69, Est GFR (MDRD) Af Amer 155, Est GFR (MDRD) Non-Af 128, BUN/Creatinine Ratio 25.0 H, Glucose 161 H, Calcium 8.3 L 02/12/19 11:32: POC Glucose 154 H 02/12/19 17:02: POC Glucose 164 H 02/12/19 22:42: POC Glucose 174 H 02/13/19 06:40: Sodium Pending, Potassium Pending, Chloride Pending, Carbon Dioxide Pending, Anion Gap Pending, BUN Pending, Creatinine Pending, Est GFR (MDRD) Af Amer Pending, Est GFR (MDRD) Non-Af Pending, BUN/Creatinine Ratio Pending, Glucose Pending, Calcium Pending 02/13/19 06:40: WBC Pending, RBC Pending, Hgb Pending, Hct Pending, MCV Pending, MCH Pending, MCHC Pending, RDW Pending, RDW Differential Pending, Plt Count Pending, Neut % (Auto) Pending, Absolute Neuts (auto) Pending, Total Counted Pending, ESR Pending 02/13/19 06:40: C-React Prot Ext Range Pending Current Medications Acetaminophen (Tylenol) 650 mg PO Q6H PRN PRN PRN Reason: Mild Pain (1-3)/Temp > 100.7 F Hydrocodone Bitart/Acetaminophen ([place] 5mg-325mg) 2 tablet PO Q4H PRN PRN PRN Reason: SEVERE PAIN (6-10/10) Last Admin: 02/12/19 18:25 Dose: 2 tablet Atorvastatin Calcium (Lipitor) 20 mg PO QHS [facility] Last Admin: 02/12/19 22:52 Dose: 20 mg Dextrose (D50w Syringe) 0 gm IV X1 PRN; Protocol PRN Reason: Hypoglycemia Enoxaparin Sodium (Lovenox) 40 mg SC DAILY@1000 DAPHNEY Last Admin: 02/12/19 10:10 Dose: 40 mg Furosemide (Lasix) 40 mg PO DAILY PRN PRN Reason: edema Gabapentin (Neurontin) 300 mg PO TIDCM [facility] Last Admin: 02/12/19 17:03 Dose: 300 mg Glucagon () 1 mg IM .X1 PRN PRN Reason: Hypoglycemia Sodium Chloride () 250 mls @ 15 mls/hr IV .[id number] PRN PRN Reason: SALINE FLUSH Last Admin: 02/10/19 20:24 Dose: 15 mls/hr Piperacillin Sod/Tazobactam (Sod 3.375 gm/ Sodium Chloride) 50 mls @ 12.5 mls/hr IV Q8 [facility] Last Admin: 02/12/19 22:46 Dose: 12.5 mls/hr Vancomycin IV Pharmacy to Dose (1 ea/ Sodium Chloride) 500 mls @ 250 mls/hr IV X1 PRN; Protocol PRN Reason: Rx to Dose Vancomycin HCl 1,500 mg/ (Sodium Chloride) 530 mls @ 250 mls/hr IV Q8H [facility] Last Admin: 02/13/19 04:07 Dose: 250 mls/hr Insulin Glargine (Lantus (Bkc)) 22 units SC QHS [facility] Last Admin: 02/12/19 22:44 Dose: 22 units Insulin Human Lispro (Humalog Kwikpen (Bkc)) 0 unit SC ACHS [facility]; Protocol Last Admin: 02/13/19 06:31 Dose: Not Given Linagliptin (Tradjenta) 5 mg PO DAILY [facility] Last Admin: 02/12/19 10:10 Dose: 5 mg Magnesium Hydroxide (Milk Of Magnesia) 30 ml PO DAILY PRN PRN PRN Reason: Constipation Morphine Sulfate () 2 - 4 mg IV Q4H PRN PRN PRN Reason: BREAKTHROUGH PAIN (>4/10) Last Admin: 02/11/19 10:55 Dose: 4 mg Nutritional Formula (Osito - Candia Flavor) 2 packet PO BIDCM [facility] Last Admin: 02/12/19 17:03 Dose: 2 packet Nystatin (Mycostatin Powder) 1 applic TOPICAL BID DAPHNEY; Protocol Last Admin: 02/12/19 22:46 Dose: 1 applicatio Oxycodone HCl (Oxyir) 5 - 10 mg PO Q4H PRN PRN PRN Reason: MOD-SEVERE PAIN (4-10/10) Last Admin: 02/13/19 06:42 Dose: 10 mg Sodium Chloride () 5 - 15 ml IV UD PRN PRN Reason: SALINE FLUSH Medical Necessity - Tobacco Use Smoking Status: Former smoker Tobacco Use: Non-smoker Assessment/Plan All Active Problems Osteomyelitis of fibula (Acute) The patient is a 53 y/o M w/ PMHx: Morbid Obesity, Diabetes mellitus type II, HTN, HLD who presents to the [facility] on 02/10/[address] Mcnally w/ history of RLE chronic osteomyelitis with delayed wound healing and exposed tissue with necrosis, failed outpatient abx therapies w/ 02/10/19 excision and debridement with tendon and bone biopsies obtained to the RLE. (1) Right Fibrula Osteomyelitis, Chronic R Lateral Ankle Ulcer, Infected, Failed outpatient abx therapy, Enterococcal Faecalis, Staphylococcus Aureus: Admitted to [place], 02/10/19 OR w/ Dr. Mcnally w/ subcutaneous excisional debridement to the right medial forefoot, right dorsal foot, right ulcer third toe ulcers, right proximal medial leg ulcer with debridement of bone and necrotizing tendon of the right lateral ankle including the fibula bone with a biopsy with application of advanced wound care products including amnio fill to all sites and Epicort to lateral ankle sites as well as application of wound VAC to the right leg ulcer site. Currently OR Wound Cx w/ GP organisms. Wound cx 02/02/19 with PSA, MSSA, E. faecalis, corynebacteria, and anaerobes. Abx per ID transitioned to Zosyn and Vanc pending finalized cultures. Plan 6 weeks IV abx therapy at discharge. Planned transfer weight bearing status only, consulted PT for crutch training for discharge planning w/ transfer usage of extremity only. Pain regimen, bowel regimen PRN. Podiatry dressing change 02/12/19 with foul smell, improved but still not ideal, washout 02/12/19 bedside. 02/13/19 re-evaluation, bedside debridement performed, excisional tissue debridement and liquefied regions removed, less foul-smelling, planned washout this evening per podiatry request per nursing staff and reassessment in AM. Currently no return to OR needs. Patient at risk given PAD history despite re-vascularization of eventual BKA. (2) Diabetes mellitus type II w/ Neuropathy: Continued on oral home regimen, continue home insulin regimen, ADA diet, accu checks w/ ISS, hemoglobin A1c 7.0%, nutrition consulted for education and teaching continued on home gabapentin regimen with consideration for increase if needed for pain control concurrently. (3) Morbid Obesity: Weight loss and lifestyle changes encouraged, nutrition consulted for education and teaching. (4) Hypertension: Continue home regimen including Lasix although PRN agent likely more for lymphedema, PRN hydralazine. (5) Hyperlipidemia: Continue home statin regimen. (6) Intertrigo: Continue nystatin application to affected regions. (7) DVT prophylaxis: SCD to non-surgical extremity, lovenox. Code Visit Inpatient E&M: 83002 Subs Hosp L2
[2019-02-13 07:08] LABS: Anion Gap 7 (5-15); BUN 17 mg/dL (7-18); BUN/Creat Ratio 24.4 RATIO (10-20); Calcium,Total 8.2 mg/dL (8.5-10.1); Chloride 107 mmol/L (98-107); EST Glomerular Filtration Rate 125 mL/min (>60); Est Glom Filt Rate - Afr Amer 151 mL/min (>60); Estimated Creatinine Clearance 150.27 ml/min; Glucose 143 mg/dL (74-106); Sodium Level 137 mmol/L (136-145)
[2019-02-13 07:09] LABS: Absolute Lymphocyte Count 1.46 X10^3/ul (0.83-4.51); Absolute Neutrophil Count 9.1 X10^3/uL (2.0-7.7); Basophil# 0.06 X10^3/uL; Basophil% 0.5 % (0-1); Eosinophil# 0.34 X10^3/uL; Eosinophils% 2.9 % (0-5); Hematocrit 31.8 % (40-54); Hemoglobin 10.1 g/dl (13.0-16.5); Lymphocyte # 1.46 X10^3/ul (4.0); Lymphocyte % 12.3 % (19-41); Mean Corp Hgb Conc 31.8 g/gl (32-36); Mean Corpuscular Hgb 27.4 pg (27.0-32.0); Mean Corpuscular Volume 86.4 fL (80-94); Mean Platelet Vol. 9.9 fl (6.2-12.0); Monocyte# 0.92 X10^3/uL; Monocyte% 7.7 % (0-10); Neutrophil # 9.06 X10^3/uL (2.7-7.7); Neutrophil % 76.3 % (47-70); Platelet Count 299 K/mm3 (150-450); RBC Distribution Width SD 47.8 fl (35.1-43.9); Red Blood Count 3.68 M/mm3 (4.6-6.2); White Blood Count 11.9 K/mm3 (4.4-11.0)
[2019-02-13 07:11] LABS: POSITIVE COUNT NO; POSITIVE DIFFERENTIAL NO; POSITIVE MORPHOLOGY NO
[2019-02-13 07:12] LABS: Erythrocyte Sedimentation Rate 99 mm/hr (0-20)
[2019-02-13 07:42] VITALS: BP 146/80; PULSE 82; RESP 16; TEMP 36.9; O2SAT 97
[2019-02-13 07:46] LABS: Bedside Glucose 140 mg/dL (70-110)
--- NOTE | 2019-02-13 08:19 | PCM.PROGNOTE ---
Patient Problems: Active and Suspected Problems Osteomyelitis of fibula (Acute) Subjective: This patient was seen bedside post operative day #3 right lower extremity. He denies fever, chill, nausea, vomiting, chest pain, shortness of breath. His pain is decreased to a 3/10. He has continued loss of appetite and relates his leg odor has resolved. Upon evaluation today, he is offloading his limb as advised. - Physical Exam General: Alert, Oriented x3, Cooperative HEENT: Atraumatic Extremities: Capillary Refill Less than 3 Seconds - right foot digits 3,4,5 and less than 4 seconds digit 2, No Calf Tenderness - negative aponte to posterior leg, right. pain to palpate lateral leg proximal to ulcer site, Diminished Peripheral Pulses, Edema, - - right hallux amputation noted Skin: Ulcer/ Wound - lateral right ankle wound with devitalized tendon, subcutaneous tissue with exposed fibula bone. the odor has resolved compared to yesterday. The wound bed is fibrous, granular and with intermittent eschar formation peripherally. there is no purulence on expression. there is still a dysvascular appearance with peripheral duskiness. there is moist drainage from the distal end of the wound bed where the peroneal tendons travel into the foot. The other right foot ulcer sites are covered with adaptic and appear dry and without infection signs., - - the peripheral skin is hairless and atrophic. right wound vac and proximal dressing remains intact. there is an escoriation with superficial hemorrhagic tissue exposed to anterior proximal left leg Musculoskeletal: Muscle Wasting, Tenderness - ulcer manipulation, right., - - right hallux amputation. compartments of right lower extremity are soft to palpate without fluctuance or bogginess. Neurological: - - lack of normal epicritic sensation via light touch consistent with neuropathy Psych/Mental Status: Normal Affect, Appropriate Vital Signs Temp Pulse Resp BP Pulse Ox 98.4 F 82 16 146/80 H 97 02/13/19 07:42 02/13/19 07:42 02/13/19 07:42 02/13/19 07:42 02/13/19 07:42 Oxygen Delivery Method Room Air Weight: 183.2 kg Body Mass Index (BMI) 47.9 Intake and Output for Last 24 Hours 02/11/19 02/12/19 02/13/19 23:59 23:59 23:59 Intake Total 3643 / 3643 4195 / 4195 1664 / 1664 Output Total 1875 / 1875 2175 / 2175 1200 / 1200 Balance 1768 / 1768 2019 464 / 464 Microbiology Past 72 Hours 02/10/19 16:58 Gram Stain - Final Tissue - Other Wound Culture - Preliminary Enterococcus faecalis Staphylococcus aureus Anaerobic Culture - Preliminary Checking for anaerobes, further studies to follow. 02/10/19 16:58 Gram Stain - Final Bone - Other Wound Culture - Preliminary GPC Poss Enterococcus sp Anaerobic Culture - Preliminary Checking for anaerobes, further studies to follow. Laboratory Tests Past 24 Hrs 02/13/19 02/13/19 02/13/19 06:40 06:40 06:40 WBC 11.9 H RBC 3.68 L Hgb 10.1 L Hct 31.8 L MCV 86.4 MCH 27.4 MCHC 31.8 L RDW 15.0 H RDW Differential 47.8 H Plt Count 299 MPV 9.9 Immature Gran % (Auto) 0.300 Neut % (Auto) 76.3 H Lymph % (Auto) 12.3 L Clinton % (Auto) 7.7 Eos % (Auto) 2.9 Baso % (Auto) 0.5 Absolute Neuts (auto) 9.1 H Absolute Lymphs (auto) 1.46 Total Counted Not Reportable ESR 99 H Sodium 137 Potassium 4.0 Chloride 107 Carbon Dioxide 23.0 Anion Gap 7 BUN 17 Creatinine 0.70 Estim Creat Clear Calc 150.27 Est GFR (MDRD) Af Amer 151 Est GFR (MDRD) Non-Af 125 BUN/Creatinine Ratio 24.4 H Glucose 143 H Calcium 8.2 L C-React Prot Ext Range 140.00 H POC Glucose 02/13/19 02/12/19 02/12/19 06:27 22:42 17:02 POC Glucose 140 H 174 H 164 H 02/12/19 11:32 POC Glucose 154 H Medical Necessity - Tobacco Use Smoking Status: Former smoker Tobacco Use: Non-smoker Assessment/Plan All Active Problems Osteomyelitis of fibula (Acute) Postoperative day #3 debridement of nonviable and infected tissue of the right lateral ankle including tendon and bone with a bone biopsy Debridement of subcutaneous tissue ulcers of the right leg dorsal foot dorsal medial foot and dorsal third toe Application of advanced wound care products to other ulcer sites Application of wound VAC to right medial leg Right lateral ankle ulcer infection with osteomyelitis Diabetes with neuropathy, hemoglobin A1c of 7.0 Peripheral vascular disease status post intervention Left leg ulcer (hemphill grade 1), no infection I reviewed and discussed his case today. Labs were reviewed. His WBC was 11.9, ESR 99, and c reactive protein 140. His vitals are stable and he remains afebrile today. His final microbiology cultures and pathology from surgery are pending. So far there is Staphylococcus aureus and enterococcus facialis growth. It is noted he continued on Zosyn and vancomycin was added yesterday to better cover the enterococcus. Blood cultures are pending without bacterial growth so far. Infectious diseases is on consult and recommendations are appreciated. PICC line was placed and at least 6 weeks of IV antibiotics is planned. Clinically, the lateral ankle ulcer site does have resolved odor compared to yesterday and the additional antibiotic and serial bedside irrigations are noted. Excisional subcutaneous and tendon debridement was performed today to removal liquified tissue that remained in the central aspect of the wound with forceps and medical scissor. Adjacent bleeding tissue was noted and hemostasis was controlled with pressure. Verbal consent was obtained, and he tolerated this well due to neuropathy. This site was then irrigated with 1L of normal saline and the area was cleaned with an antimicrobial solution. A dressing consisting of Betadine wet-to-dry dressings were applied to this site and this process will be repeated this evening via nursing staff again. If this continues to progress with resolution of odor and stabilized devitalized tissue, a wound vac will be considered tomorrow. Serial surgical debridement and washout may be needed if he deteriorates again. His recent vascular surgery intervention is noted and was recently considered still patent, but the tissue quality itself needs to be monitored for viability. He understands he is at risk for continued systemic illness and amputation due to the continued infection and tissue loss. His wound VAC remains intact to the right proximal medial leg without evidence of leaking. It is ok to transfer with foot weightbearing. To use assistive device for ambulation assistance and remain non weightbearing otherwise. I recommend adaptic and hydrogel to the left leg new injury site. All wound care ordes will be placed in the computer. To continue pain control with Tylenol and gabapentin. Medical management per medical team is appreciated. Please not hesitate to call if you have any questions. Teri Mcnally DPM, [facility] [phone]
--- NOTE | 2019-02-13 08:39 | PCM.DC.POD ---
Discharge Diet: Carb Control Diet, - - emily nutritional supplementation Discharge Activity: Use Crutches, - Weight Bearing Status: No weight bearing - only touch down for transfers with right lower extremity Additional Activity Instructions:: keep pressure off of ulcer site by hanging outside of ankle over pillows to float the wound site in the air. Use donut pillow applied to mid leg. Keep wound vac intact on continuous to right upper leg site until follow up in clinic Thursday. (this will be changed weekly in clinic). Keep wound vac intact on continous rightt lateral ankle until follow up in clinic Thursday. (this will be changed q 3 days at home) Call your doctor if your incision/area has: Continuous Slow Oozing, Sudden Increased Bleeding, Increased Pain/ Swelling, Increased Redness, Foul Smelling Discharge, Swelling at the incision site Call your doctor if you observe: Fever of 101 or Higher, Calf discomfort, Uncontrolled pain Cleanse incision/area with: Keep Dressing Clean & Dry - right ankle: A wound vac 125 mmHg continuous, change every 3 days. Right leg: keep wound vac (KCI via vac) on continuous and intact until follow up) Right foot ulcers: apply hydrogel every 3 days to toe ulcer sites as well as over adaptic sites on foot left leg: change every other day with hydrogel and adaptic Additional Dressing/Incision Instructions:: Antibiotic plan and home health will need to be confirmed prior to discharge. Additional Instructions: Continue PICC line antibiotics as scheduled. Final plan will be confirmed prior to discharge. Allergies/Adverse Reactions: Allergies Penicillins [PCN] Allergy (Verified 02/10/19 13:45) Anaphylaxis Medications to take at Discharge Gabapentin [Neurontin] 300 mg PO DAILY 09/30/18 Insulin Glargine,Hum.rec.anlog [Lantus] 22 unit SQ QHS 09/30/18 Naproxen Sodium [Aleve] 440 mg PO BID 09/30/18 Sitagliptin Phosphate [Januvia] 100 mg PO DAILY 09/30/18 Oxycodone [Oxyir] 5 mg PO Q6H PRN PRN 01/19/19 Atorvastatin Calcium [Lipitor] 20 mg PO QHS 02/09/19 Furosemide [Lasix] 40 mg PO DAILY PRN 02/09/19 Primary Care Physician: Yohan Medina DO [Primary Care Provider] - Test Results: Test results from this visit will be discussed in further detail at your follow-up appointment, if applicable. Please Follow Up With: Teri Mcnally DPM When: Thursday at Wound [facility]. Call to confirm appointment time. Please Follow Up With: Raad Salinas MD When: call to confirm follow up plan. he can be seen at Wound [facility][1]
--- NOTE | 2019-02-13 08:43 | DCINST_ITS ---
Discharge Diet: Carb Control Diet, - - emily nutritional supplementation Discharge Activity: Use Crutches, - Weight Bearing Status: No weight bearing - only touch down for transfers with right lower extremity Additional Activity Instructions:: keep pressure off of ulcer site by hanging outside of ankle over pillows to float the wound site in the air. Use donut pillow applied to mid leg. Keep wound vac intact on continuous to right upper leg site until follow up in clinic Thursday. (this will be changed weekly in clinic). Keep wound vac intact on continous rightt lateral ankle until follow up in clinic Thursday. (this will be changed q 3 days at home) Call your doctor if your incision/area has: Continuous Slow Oozing, Sudden Increased Bleeding, Increased Pain/ Swelling, Increased Redness, Foul Smelling Discharge, Swelling at the incision site Call your doctor if you observe: Fever of 101 or Higher, Calf discomfort, Uncontrolled pain Cleanse incision/area with: Keep Dressing Clean & Dry - right ankle: A wound vac 125 mmHg continuous, change every 3 days. Right leg: keep wound vac (KCI via vac) on continuous and intact until follow up) Right foot ulcers: apply hydrogel every 3 days to toe ulcer sites as well as over adaptic sites on foot left leg: change every other day with hydrogel and adaptic Additional Dressing/Incision Instructions:: Antibiotic plan and home health will need to be confirmed prior to discharge. Additional Instructions: Continue PICC line antibiotics as scheduled. Final plan will be confirmed prior to discharge. Allergies/Adverse Reactions: Allergies Penicillins [PCN] Allergy (Verified 02/10/19 13:45) Anaphylaxis Medications to take at Discharge Gabapentin [Neurontin] 300 mg PO DAILY 09/30/18 Insulin Glargine,Hum.rec.anlog [Lantus] 22 unit SQ QHS 09/30/18 Naproxen Sodium [Aleve] 440 mg PO BID 09/30/18 Sitagliptin Phosphate [Januvia] 100 mg PO DAILY 09/30/18 Oxycodone [Oxyir] 5 mg PO Q6H PRN PRN 01/19/19 Atorvastatin Calcium [Lipitor] 20 mg PO QHS 02/09/19 Furosemide [Lasix] 40 mg PO DAILY PRN 02/09/19 Primary Care Physician: Yohan Medina DO [Primary Care Provider] - Test Results: Test results from this visit will be discussed in further detail at your follow- up appointment, if applicable. Please Follow Up With: Teri Mcnally DPM When: Thursday at Wound [facility]. Call to confirm appointment time. Please Follow Up With: Raad Salinas MD When: call to confirm follow up plan. he can be seen at W[facility]
[2019-02-13] MEDS: Gabapentin 300 MG Capsule PO ×3 (08:47→16:45)
[2019-02-13] MEDS: LINAGLIPTIN 5 MG TABLET PO (08:48)
[2019-02-13] MEDS: Nystatin Powder 15gm Bottle 1 APPLIC TOPICAL ×2 (08:48→22:05)
[2019-02-13] MEDS: Enoxaparin 40 MG/0.4 ML Syringe SC (08:51)
--- NOTE | 2019-02-13 09:27 | NURSING ---
consent for medical records signed. [email or web address]
[2019-02-13] MEDS: Insulin Lispro 100 UNIT/ML INSULN.PEN SC ×2 (10:46→22:03)
[2019-02-13 10:50] LABS: Bedside Glucose 211 mg/dL (70-110)
[2019-02-13 11:05] VITALS: BP 156/75; PULSE 85; RESP 16; TEMP 36.9; O2SAT 96
[2019-02-13 12:22] LABS: Vancomycin, Trough Level 10.3 ug/mL (5.0-15.0)
--- NOTE | 2019-02-13 12:43 | PCM.RX.CS ---
Consult Pharmacy has been consulted to manage selected antiobiotic: Vancomycin Type of Consult: Follow-up Suspected Infection: Osteomyelitis Prior Doses of Antibiotics Received/Current Regimen: Current regimen is 1500mg IV q8h with the last 3 doses given yesterday 02/12/19 at 19:59 and today 02/13/19 at 04:07 and 11:22. Labs: Sodium 137 mmol/L (136-145) 02/13/19 06:40 Potassium 4.0 mmol/L (3.5-5.1) 02/13/19 06:40 Chloride 107 mmol/L (98-107) 02/13/19 06:40 Carbon Dioxide 23.0 mmol/L (21.0-32.0) 02/13/19 06:40 Anion Gap 7 (5-15) 02/13/19 06:40 BUN 17 mg/dL (7-18) 02/13/19 06:40 Creatinine 0.70 mg/dL (0.70-1.30) 02/13/19 06:40 Est GFR (MDRD) Af Amer 151 mL/min (>60) 02/13/19 06:40 Est GFR (MDRD) Non-Af 125 mL/min (>60) 02/13/19 06:40 BUN/Creatinine Ratio 24.4 RATIO (10-20) H 02/13/19 06:40 Glucose 143 mg/dL (74-106) H 02/13/19 06:40 Vancomycin Trough 10.3 ug/mL (5.0-15.0) 02/13/19 11:28 Microbiology: Microbiology 02/10/19 16:58 Tissue - Other Gram Stain - Final 02/10/19 16:58 Tissue - Other Wound Culture - Preliminary Enterococcus faecalis Staphylococcus aureus Gram positive liz 02/10/19 16:58 Tissue - Other Anaerobic Culture - Preliminary Checking for anaerobes, further studies to follow. 02/10/19 16:58 Bone - Other Gram Stain - Final 02/10/19 16:58 Bone - Other Wound Culture - Preliminary GPC Poss Enterococcus sp Gram positive liz 02/10/19 16:58 Bone - Other Anaerobic Culture - Preliminary Checking for anaerobes, further studies to follow. Estimated Creatinine Clearance: 150 ml/min Goal Trough: 15-20 mcg/mL Pharmacy Plan for Drug Dosing: Trough drawn this morning (7.5 hours after previous dose) came back as 10.3 mg/L. Recommend to increase dose to 1750mg IV q8h and obtain another trough before the 4th dose. Pharmacy Service will continue to monitor and adjust dosing as required. Follow-Up Labs: Trough Vancomycin Labs to be done on [date and time ordered]: 02/14/19 19:30
[2019-02-13 14:25] VITALS: BP 125/43; PULSE 78; RESP 16; TEMP 36.8; O2SAT 100
[2019-02-13 15:31] LABS: Bedside Glucose 126 mg/dL (70-110)
[2019-02-13 20:00] VITALS: BP 119/78; PULSE 86; RESP 18; TEMP 36.7; O2SAT 96
[2019-02-13] MEDS: Atorvastatin Calcium 20 MG Tablet PO (22:02)
[2019-02-13 22:16] LABS: Bedside Glucose 190 mg/dL (70-110)
[2019-02-14] MEDS: oxyCODONE 5 MG Tablet PO ×4 (02:16→17:24)
[2019-02-14 02:22] VITALS: BP 150/80; PULSE 86; RESP 18; TEMP 36.7; O2SAT 96
[2019-02-14 05:59] LABS: Absolute Lymphocyte Count 1.27 X10^3/ul (0.83-4.51); Absolute Neutrophil Count 7.4 X10^3/uL (2.0-7.7); Basophil# 0.05 X10^3/uL; Basophil% 0.5 % (0-1); Eosinophil# 0.33 X10^3/uL; Eosinophils% 3.3 % (0-5); Hematocrit 31.6 % (40-54); Hemoglobin 10.1 g/dl (13.0-16.5); Lymphocyte # 1.27 X10^3/ul (4.0); Lymphocyte % 12.8 % (19-41); Mean Corpuscular Hgb 27.4 pg (27.0-32.0); Mean Corpuscular Volume 85.9 fL (80-94); Mean Platelet Vol. 9.6 fl (6.2-12.0); Monocyte# 0.85 X10^3/uL; Monocyte% 8.6 % (0-10); Neutrophil # 7.39 X10^3/uL (2.7-7.7); Neutrophil % 74.7 % (47-70); Platelet Count 296 K/mm3 (150-450); RBC Distribution Width CV 14.9 % (11.6-14.6); RBC Distribution Width SD 47.2 fl (35.1-43.9); Red Blood Count 3.68 M/mm3 (4.6-6.2); White Blood Count 9.9 K/mm3 (4.4-11.0)
[2019-02-14 06:17] LABS: POSITIVE COUNT NO; POSITIVE DIFFERENTIAL NO; POSITIVE MORPHOLOGY NO
[2019-02-14 06:28] LABS: Anion Gap 6 (5-15); BUN 15 mg/dL (7-18); BUN/Creat Ratio 21.4 RATIO (10-20); Calcium,Total 8.1 mg/dL (8.5-10.1); Chloride 104 mmol/L (98-107); EST Glomerular Filtration Rate 124 mL/min (>60); Est Glom Filt Rate - Afr Amer 150 mL/min (>60); Estimated Creatinine Clearance 150.27 ml/min; Glucose 173 mg/dL (74-106); Sodium Level 135 mmol/L (136-145)
[2019-02-14] MEDS: Insulin Lispro 100 UNIT/ML INSULN.PEN SC ×4 (06:34→21:45)
[2019-02-14 07:00] LABS: Bedside Glucose 156 mg/dL (70-110)
--- NOTE | 2019-02-14 07:16 | PN_ITS ---
Patient Problems: Active and Suspected Problems Osteomyelitis of fibula (Acute) Subjective: This patient was seen bedside post operative day #4 right lower extremity. He is resting comfortably in his bed with no acute events over night. He denies fever, chill, nausea, vomiting, chest pain, shortness of breath. His pain continues to decrease. He continues to do his best to keep the leg offloaded as instructed. - Physical Exam General: Alert, Oriented x3, Cooperative Extremities: Capillary Refill Less than 3 Seconds - right foot digits 3,4,5 and less than 4 seconds digit 2, No Calf Tenderness - negative aponte to right posterior leg, Diminished Peripheral Pulses, Edema - LE, - - right hallux amputation noted Skin: Ulcer/ Wound - Right lateral ankle wound with devitalized tendon, subcutaneous tissue with exposed fibula bone. There is no odor appreciated today. The wound bed is a mixture of fibrous, granular and some intermittent eschar formation peripherally. No purulence noted today. Continues to be a dysvascular appearance with peripheral duskiness. Continues to be moist drainage from the distal end of the wound bed where the peroneal tendons travel into the foot. The other right foot ulcer sites are covered with adaptic and demonstrate no signs of acute infection. The peripheral skin is hairless and atrophic. Right wound vac and proximal dressing remains intact. There is an escoriation with superficial hemorrhagic tissue exposed to anterior proximal left leg. No signs of infection noted to this area today either. Musculoskeletal: Muscle Wasting, Tenderness - some tenderness with manipulation of ulcer site to right lateral lower leg, - - compartments of right lower extremity are soft to palpate without fluctuance or bogginess. Neurological: - - lack of epicritic sensation to lower extremity Psych/Mental Status: Normal Affect, Appropriate Vital Signs Temp Pulse Resp BP Pulse Ox 98.1 F 86 18 150/80 H 96 02/14/19 02:22 02/14/19 02:22 02/14/19 02:22 02/14/19 02:22 02/14/19 02:22 Oxygen Delivery Method Room Air Weight: 183.2 kg Body Mass Index (BMI) 47.9 Intake and Output for Last 24 Hours 02/12/19 02/13/19 02/14/19 23:59 23:59 23:59 Intake Total 4195 / 4195 2664 / 2664 2832 / 2832 Output Total 2175 / 2175 3200 / 3200 1225 / 1225 Balance 2019 -536 / -536 1607 / 1607 Microbiology Past 72 Hours 02/10/19 16:58 Gram Stain - Final Tissue - Other Wound Culture - Preliminary Enterococcus faecalis Staphylococcus aureus Gram positive liz Anaerobic Culture - Preliminary Checking for anaerobes, further studies to follow. 02/10/19 16:58 Gram Stain - Final Bone - Other Wound Culture - Preliminary GPC Poss Enterococcus sp Gram positive liz Anaerobic Culture - Preliminary Checking for anaerobes, further studies to follow. Laboratory Tests Past 24 Hrs 02/13/19 02/13/19 02/13/19 06:40 06:40 11:28 WBC 11.9 H RBC 3.68 L Hgb 10.1 L Hct 31.8 L MCV 86.4 MCH 27.4 MCHC 31.8 L RDW 15.0 H RDW Differential 47.8 H Plt Count 299 MPV 9.9 Immature Gran % (Auto) 0.300 Neut % (Auto) 76.3 H Lymph % (Auto) 12.3 L Emanuel % (Auto) 7.7 Eos % (Auto) 2.9 Baso % (Auto) 0.5 Absolute Neuts (auto) 9.1 H Absolute Lymphs (auto) 1.46 Total Counted Not Reportable ESR 99 H Sodium Potassium Chloride Carbon Dioxide Anion Gap BUN Creatinine Estim Creat Clear Calc Est GFR (MDRD) Af Amer Est GFR (MDRD) Non-Af BUN/Creatinine Ratio Glucose Calcium C-React Prot Ext Range 140.00 H Vancomycin Trough 10.3 02/14/19 02/14/19 05:31 05:31 WBC 9.9 RBC 3.68 L Hgb 10.1 L Hct 31.6 L MCV 85.9 MCH 27.4 MCHC 32.0 RDW 14.9 H RDW Differential 47.2 H Plt Count 296 MPV 9.6 Immature Gran % (Auto) 0.100 Neut % (Auto) 74.7 H Lymph % (Auto) 12.8 L Emanuel % (Auto) 8.6 Eos % (Auto) 3.3 Baso % (Auto) 0.5 Absolute Neuts (auto) 7.4 Absolute Lymphs (auto) 1.27 Total Counted Not Reportable ESR Sodium 135 L Potassium 4.0 Chloride 104 Carbon Dioxide 25.0 Anion Gap 6 BUN 15 Creatinine 0.70 Estim Creat Clear Calc 150.27 Est GFR (MDRD) Af Amer 150 Est GFR (MDRD) Non-Af 124 BUN/Creatinine Ratio 21.4 H Glucose 173 H Calcium 8.1 L C-React Prot Ext Range Vancomycin Trough POC Glucose 02/14/19 02/13/19 02/13/19 06:33 22:01 15:26 POC Glucose 156 H 190 H 126 H 02/13/19 02/13/19 10:45 06:27 POC Glucose 211 H 140 H Medical Necessity - Tobacco Use Smoking Status: Former smoker Tobacco Use: Non-smoker Assessment/Plan All Active Problems Ulcer of right lower extremity with necrosis of muscle (Acute) Osteomyelitis of fibula (Acute) Postoperative day #4 debridement of nonviable and infected tissue of the right lateral ankle including tendon and bone with a bone biopsy Debridement of subcutaneous tissue ulcers of the right leg dorsal foot dorsal medial foot and dorsal third toe Application of advanced wound care products to other ulcer sites Application of wound VAC to right medial leg Right lateral ankle ulcer infection with osteomyelitis DM with neuropathy Peripheral vascular disease status post intervention Left leg ulcer (hemphill grade 1), no infection Patient was carefully examined and evaluated again today resting comfortably in his bed. Labs were reviewed. His WBC was 9.9 today. His vitals are stable and he remains afebrile today. His final microbiology cultures and pathology from surgery are pending. So far there is Staphylococcus aureus, enterococcus facialis growth, and gram positive liz. Patient currently on Vanc and Zosyn. Blood cultures are pending. Infectious diseases is on consult and recommendations are appreciated. PICC line was placed and at least 6 weeks of IV antibiotics are planned at this time. Ulcer to right lateral ankle remains stable in appearance today without any purulence, extending cellulitis, and no malodor. Minor selective debridement with curette of adherent slough/fibrotic tissue. Minimal bleeding tissue was noted and hemostasis was controlled with pressure. Verbal consent was obtained, and he tolerated this well due to neuropathy. This site was then irrigated with 1L of normal saline. A dressing consisting of Betadine wet-to-dry dressings were applied to this site and this process will be repeated this evening via nursing staff until instructed otherwise. Will most likely move forward with placing a wound vac to this site as well as it has remained stable. Serial surgical debridement and washout may be needed if he deteriorates again in the future. His recent vascular surgery intervention is noted, but the tissue quality itself needs to be monitored for viability. He understands he is at risk for continued systemic illness and amputation due to the continued infection and tissue loss. His wound VAC remains intact to the right proximal medial leg without evidence of leaking. It is ok to transfer with foot weightbearing. He is to use assistive device for ambulation assistance and remain non weightbearing otherwise. Continue with hydrogel and adaptic to left proximal lower leg excoriations. Management per medical team is appreciated. Podiatry will continue to follow this patient closely while in house.
[2019-02-14 08:00] VITALS: BP 138/64; PULSE 74; PULSE 76; RESP 18; TEMP 36.5; O2SAT 99
[2019-02-14] MEDS: Gabapentin 300 MG Capsule PO ×3 (08:04→17:18)
[2019-02-14] MEDS: Nystatin Powder 15gm Bottle 1 APPLIC TOPICAL ×2 (09:40→21:46)
[2019-02-14] MEDS: LINAGLIPTIN 5 MG TABLET PO (09:40)
[2019-02-14] MEDS: Enoxaparin 40 MG/0.4 ML Syringe SC (09:42)
--- NOTE | 2019-02-14 10:15 | CASEMGMT ---
RN KIMBERLY NOTE: chart reviewed. pt is to dc home with IV antibiotics and wound vac. Intro role of CM to patient in room. Lengthy conversation re: dc planning home vs snf. Pt has significant mobility issues. Pt states he prefers home and has sister and brother in law who can assist. Pt states he will return to his home. He has adaptive equipment and sister is able/willing to learn to give IV antibiotics. Home care preference is [facility], and no preference for IV infusion company. Pt is agreeable to [facility]. -No script available. Dr. Priest to floor and CM requested script. -Dr. lFor updated that dc is anticipated for tomorrow and dc planning is underway. Home Care Referral: [facility] PH: [phone] FX: [phone] Call to [facility]. Reviewed case including increased services needed for wound vac care and IV antibiotics, zosyn Q 8 hours. Pt is current with them, anticipate dc Thursday, February 15. Referral faxed, fax [place] paper received. awaiting their review. IV antibiotic referral: [facility] PH: [phone] FX: [phone] Referral faxed to [facility] ([place] paper received). Called to [facility] to review case, let them know anticipated dc is Friday February 15, 2019. They have received the faxes (one with clinical information and additional fax with script) They are processing and will contact CM. Tohny [facility]
--- NOTE | 2019-02-14 10:46 | PCM.PN.ID ---
Patient Problems: Active and Suspected Problems Osteomyelitis of fibula (Acute) Subjective: Patient overall clinically stable denies any specific complaints. No fevers or chills. No gastrointestinal distress. Tolerated parenteral antimicrobial therapy well. I did talk to Heather the wound care nurse the patient's right leg wound and also pictures taken this morning when the wound change. Objective: Patient is alert and oriented does not appear toxic abdomen is obese and soft PICC line his left arm. Wound VAC in his right leg. - Physical Exam Vital Signs Temp Pulse Resp BP Pulse Ox 97.7 F L 76 18 138/64 H 99 02/14/19 08:00 02/14/19 08:00 02/14/19 08:00 02/14/19 08:00 02/14/19 08:00 Oxygen Delivery Method Room Air Weight: 183.2 kg Body Mass Index (BMI) 47.9 Intake and Output for Last 24 Hours 02/12/19 02/13/19 02/14/19 23:59 23:59 23:59 Intake Total 4195 / 4195 2664 / 2664 2832 / 2832 Output Total 2175 / 2175 3200 / 3200 1225 / 1225 Balance 2019 / 2019 -536 / -536 1607 / 1607 Microbiology Past 72 Hours 02/12/19 10:32 Blood Culture - Preliminary Blood Culture (Wb) - Anticubital Right No growth in 48 hours. 02/12/19 10:28 Blood Culture - Preliminary Blood Culture (Wb) - Anticubital Left No growth in 48 hours. 02/10/19 16:58 Gram Stain - Final Tissue - Other Wound Culture - Final Enterococcus faecalis Staphylococcus aureus Actinomyces species Anaerobic Culture - Preliminary Checking for anaerobes, further studies to follow. 02/10/19 16:58 Gram Stain - Final Bone - Other Wound Culture - Final Enterococcus faecalis Actinomyces species Anaerobic Culture - Preliminary Checking for anaerobes, further studies to follow. Laboratory Tests Past 24 Hrs 02/13/19 02/14/19 02/14/19 11:28 05:31 05:31 WBC 9.9 RBC 3.68 L Hgb 10.1 L Hct 31.6 L MCV 85.9 MCH 27.4 MCHC 32.0 RDW 14.9 H RDW Differential 47.2 H Plt Count 296 MPV 9.6 Immature Gran % (Auto) 0.100 Neut % (Auto) 74.7 H Lymph % (Auto) 12.8 L [place] % (Auto) 8.6 Eos % (Auto) 3.3 Baso % (Auto) 0.5 Absolute Neuts (auto) 7.4 Absolute Lymphs (auto) 1.27 Total Counted Not Reportable Sodium 135 L Potassium 4.0 Chloride 104 Carbon Dioxide 25.0 Anion Gap 6 BUN 15 Creatinine 0.70 Estim Creat Clear Calc 150.27 Est GFR (MDRD) Af Amer 150 Est GFR (MDRD) Non-Af 124 BUN/Creatinine Ratio 21.4 H Glucose 173 H Calcium 8.1 L Vancomycin Trough 10.3 POC Glucose 02/14/19 02/13/19 02/13/19 06:33 22:01 15:26 POC Glucose 156 H 190 H 126 H 02/13/19 10:45 POC Glucose 211 H Medical Necessity - Tobacco Use Smoking Status: Former smoker Tobacco Use: Non-smoker Route of nutrition/ use of supplements: [] Nutritional Intake: [] IV Site: [] Arita Catheter: [] - Assessment/Plan Antibiotics: [] Assessment/Plan: [] Active and Suspected Problems Osteomyelitis of fibula (Acute) Right lower leg osteomyelitis. Microbiological data reviewed. Patient tolerating Zosyn well. At this point would be reasonable to continue Zosyn monotherapy 4.5 g IV every 6 hours at home for total 6 weeks. We will also obtain weekly blood work.
--- NOTE | 2019-02-14 11:15 | NURSING ---
wound photo: right foot
--- NOTE | 2019-02-14 11:16 | NURSING ---
wound photo: right lateral ankle
[2019-02-14 12:11] LABS: Bedside Glucose 163 mg/dL (70-110)
--- NOTE | 2019-02-14 12:53 | PCM.PN.HOSP ---
Patient Problems: Active and Suspected Problems Osteomyelitis of fibula (Acute) Subjective: Feeling better than when he came in to the hospital, understands that he is doing to help more to go home to get IV antibiotics set up. Denies any fever or chills. Vitals/I&O's: Vital Signs Temp Pulse Resp BP Pulse Ox 97.7 F L 76 18 138/64 H 99 02/14/19 08:00 02/14/19 08:00 02/14/19 08:00 02/14/19 08:00 02/14/19 08:00 Oxygen Delivery Method Room Air Weight: 403 lb 14.189 oz Body Mass Index (BMI) 47.9 Intake and Output for Last 24 Hours 02/12/19 02/13/19 02/14/19 23:59 23:59 23:59 Intake Total 4195 / 4195 2664 / 2664 3157 / 3157 Output Total 2175 / 2175 3200 / 3200 1999 / 1999 Balance 2019 / 2019 -536 / -536 1157 / 1157 General: Alert, Oriented x3, Cooperative, No apparent distress HEENT: Atraumatic, PERRLA, EOMI, Normocephalic Oral: Moist Mucosa Neck: Supple, No JVD, Trachea Midline Lungs: Clear to auscultation, Normal air movement, No rhonchi, No wheeze, No rales Cardiovascular: Regular rate, Regular Rhythm, Normal S1, Normal S2, No murmurs Abdomen: Soft, Non Tender, Non-Distended, No Hepato-splenomegaly Extremities: Capillary Refill Less than 3 Seconds, Edema Skin: Ulcer/ Wound - Right lower extremity with Max bandage intact with wound VAC intact Neurological: Neuro grossly intact, Sensory exam intact to light touch and pain Psych/Mental Status: Normal Affect, Appropriate Microbiology Past 72 Hours 02/12/19 10:32 Blood Culture (Wb) - Anticubital Right Blood Culture - Preliminary No growth in 48 hours. 02/12/19 10:28 Blood Culture (Wb) - Anticubital Left Blood Culture - Preliminary No growth in 48 hours. 02/10/19 16:58 Tissue - Other Gram Stain - Final 02/10/19 16:58 Tissue - Other Wound Culture - Final Enterococcus faecalis Staphylococcus aureus Actinomyces species 02/10/19 16:58 Tissue - Other Anaerobic Culture - Preliminary Checking for anaerobes, further studies to follow. 02/10/19 16:58 Bone - Other Gram Stain - Final 02/10/19 16:58 Bone - Other Wound Culture - Final Enterococcus faecalis Actinomyces species 02/10/19 16:58 Bone - Other Anaerobic Culture - Preliminary Checking for anaerobes, further studies to follow. Laboratory Results 02/13/19 15:26: POC Glucose 126 H 02/13/19 22:01: POC Glucose 190 H 02/14/19 05:31: WBC 9.9, RBC 3.68 L, Hgb 10.1 L, Hct 31.6 L, MCV 85.9, MCH 27.4, MCHC 32.0, RDW 14.9 H, RDW Differential 47.2 H, Plt Count 296, MPV 9.6, Immature Gran % (Auto) 0.100, Neut % (Auto) 74.7 H, Lymph % (Auto) 12.8 L, [place] % (Auto) 8.6, Eos % (Auto) 3.3, Baso % (Auto) 0.5, Absolute Neuts (auto) 7.4, Absolute Lymphs (auto) 1.27, Total Counted Not Reportable 02/14/19 05:31: Sodium 135 L, Potassium 4.0, Chloride 104, Carbon Dioxide 25.0, Anion Gap 6, BUN 15, Creatinine 0.70, Estim Creat Clear Calc 150.27, Est GFR (MDRD) Af Amer 150, Est GFR (MDRD) Non-Af 124, BUN/Creatinine Ratio 21.4 H, Glucose 173 H, Calcium 8.1 L 02/14/19 06:33: POC Glucose 156 H 02/14/19 12:01: POC Glucose 163 H Current Medications Acetaminophen (Tylenol) 650 mg PO Q6H PRN PRN PRN Reason: Mild Pain (1-3)/Temp > 100.7 F Hydrocodone Bitart/Acetaminophen ([place] 5mg-325mg) 2 tablet PO Q4H PRN PRN PRN Reason: SEVERE PAIN (6-10/10) Last Admin: 02/12/19 18:25 Dose: 2 tablet Atorvastatin Calcium (Lipitor) 20 mg PO QHS DAPHNEY Last Admin: 02/13/19 22:02 Dose: 20 mg Dextrose (D50w Syringe) 0 gm IV X1 PRN; Protocol PRN Reason: Hypoglycemia Enoxaparin Sodium (Lovenox) 40 mg SC DAILY@1000 DAPHNEY Last Admin: 02/14/19 09:42 Dose: 40 mg Furosemide (Lasix) 40 mg PO DAILY PRN PRN Reason: edema Gabapentin (Neurontin) 300 mg PO TIDCM [facility] Last Admin: 02/14/19 11:59 Dose: 300 mg Glucagon () 1 mg IM .X1 PRN PRN Reason: Hypoglycemia Sodium Chloride () 250 mls @ 15 mls/hr IV .[id number] PRN PRN Reason: SALINE FLUSH Last Admin: 02/10/19 20:24 Dose: 15 mls/hr Piperacillin Sod/Tazobactam (Sod 3.375 gm/ Sodium Chloride) 50 mls @ 12.5 mls/hr IV Q8 [facility] Last Admin: 02/14/19 06:31 Dose: 12.5 mls/hr Insulin Glargine (Lantus (Bkc)) 22 units SC QHS [facility] Last Admin: 02/13/19 22:02 Dose: 22 units Insulin Human Lispro (Humalog Kwikpen (Bk)) 0 unit SC ACHS [facility]; Protocol Last Admin: 02/14/19 12:02 Dose: 1 unit Linagliptin (Tradjenta) 5 mg PO DAILY [facility] Last Admin: 02/14/19 09:40 Dose: 5 mg Magnesium Hydroxide (Milk Of Magnesia) 30 ml PO DAILY PRN PRN PRN Reason: Constipation Morphine Sulfate () 2 - 4 mg IV Q4H PRN PRN PRN Reason: BREAKTHROUGH PAIN (>4/10) Last Admin: 02/11/19 10:55 Dose: 4 mg Nutritional Formula ([place] - [place] Flavor) 2 packet PO BIDCM [facility] Last Admin: 02/14/19 08:04 Dose: 2 packet Nystatin (Mycostatin Powder) 1 applic TOPICAL BID [facility]; Protocol Last Admin: 02/14/19 09:40 Dose: 1 applicatio Oxycodone HCl (Oxyir) 5 - 10 mg PO Q4H PRN PRN PRN Reason: MOD-SEVERE PAIN (4-10/10) Last Admin: 02/14/19 10:49 Dose: 10 mg Sodium Chloride () 5 - 15 ml IV UD PRN PRN Reason: SALINE FLUSH Medical Necessity - Tobacco Use Smoking Status: Former smoker Tobacco Use: Non-smoker Assessment/Plan All Active Problems Ulcer of right lower extremity with necrosis of muscle (Acute) Osteomyelitis of fibula (Acute) 1. 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 DM 2 with neuropathy/morbid obesity -Continue with his home oral regimen as well as his home insulin regimen -Also receiving sliding scale insulin -Continue with gabapentin 3. HTN/HLD/lymphedema -Blood pressures been stable -Continue with home Lasix and statin 4. Intertrigo -Continue with nystatin DVT: Lovenox Code Visit Inpatient E&M: 51091 Subs Hosp L2
--- NOTE | 2019-02-14 13:04 | PN_ITS ---
Patient Problems: Active and Suspected Problems Osteomyelitis of fibula (Acute) Subjective: Feeling better than when he came in to the hospital, understands that he is doing to help more to go home to get IV antibiotics set up. Denies any fever or chills. Vitals/I&O's: Vital Signs Temp Pulse Resp BP Pulse Ox 97.7 F L 76 18 138/64 H 99 02/14/19 08:00 02/14/19 08:00 02/14/19 08:00 02/14/19 08:00 02/14/19 08:00 Oxygen Delivery Method Room Air Weight: 403 lb 14.189 oz Body Mass Index (BMI) 47.9 Intake and Output for Last 24 Hours 02/12/19 02/13/19 02/14/19 23:59 23:59 23:59 Intake Total 4195 / 4195 2664 / 2664 3157 / 3157 Output Total 2175 / 2175 3200 / 3200 1999 / 1999 Balance 2019 / 2019 -536 / -536 1157 / 1157 General: Alert, Oriented x3, Cooperative, No apparent distress HEENT: Atraumatic, PERRLA, EOMI, Normocephalic Oral: Moist Mucosa Neck: Supple, No JVD, Trachea Midline Lungs: Clear to auscultation, Normal air movement, No rhonchi, No wheeze, No rales Cardiovascular: Regular rate, Regular Rhythm, Normal S1, Normal S2, No murmurs Abdomen: Soft, Non Tender, Non-Distended, No Hepato-splenomegaly Extremities: Capillary Refill Less than 3 Seconds, Edema Skin: Ulcer/ Wound - Right lower extremity with Max bandage intact with wound VAC intact Neurological: Neuro grossly intact, Sensory exam intact to light touch and pain Psych/Mental Status: Normal Affect, Appropriate Microbiology Past 72 Hours 02/12/19 10:32 Blood Culture (Wb) - Anticubital Right Blood Culture - Preliminary No growth in 48 hours. 02/12/19 10:28 Blood Culture (Wb) - Anticubital Left Blood Culture - Preliminary No growth in 48 hours. 02/10/19 16:58 Tissue - Other Gram Stain - Final 02/10/19 16:58 Tissue - Other Wound Culture - Final Enterococcus faecalis Staphylococcus aureus Actinomyces species 02/10/19 16:58 Tissue - Other Anaerobic Culture - Preliminary Checking for anaerobes, further studies to follow. 02/10/19 16:58 Bone - Other Gram Stain - Final 02/10/19 16:58 Bone - Other Wound Culture - Final Enterococcus faecalis Actinomyces species 02/10/19 16:58 Bone - Other Anaerobic Culture - Preliminary Checking for anaerobes, further studies to follow. Laboratory Results 02/13/19 15:26: POC Glucose 126 H 02/13/19 22:01: POC Glucose 190 H 02/14/19 05:31: WBC 9.9, RBC 3.68 L, Hgb 10.1 L, Hct 31.6 L, MCV 85.9, MCH 27.4, MCHC 32.0, RDW 14.9 H, RDW Differential 47.2 H, Plt Count 296, MPV 9.6, Immature Gran % (Auto) 0.100, Neut % (Auto) 74.7 H, Lymph % (Auto) 12.8 L, [place] % (Auto) 8.6, Eos % (Auto) 3.3, Baso % (Auto) 0.5, Absolute Neuts (auto) 7.4, Absolute Lymphs (auto) 1.27, Total Counted Not Reportable 02/14/19 05:31: Sodium 135 L, Potassium 4.0, Chloride 104, Carbon Dioxide 25.0, Anion Gap 6, BUN 15, Creatinine 0.70, Estim Creat Clear Calc 150.27, Est GFR (MDRD) Af Amer 150, Est GFR (MDRD) Non-Af 124, BUN/Creatinine Ratio 21.4 H, Glucose 173 H, Calcium 8.1 L 02/14/19 06:33: POC Glucose 156 H 02/14/19 12:01: POC Glucose 163 H Current Medications Acetaminophen (Tylenol) 650 mg PO Q6H PRN PRN PRN Reason: Mild Pain (1-3)/Temp > 100.7 F Hydrocodone Bitart/Acetaminophen ([place] 5mg-325mg) 2 tablet PO Q4H PRN PRN PRN Reason: SEVERE PAIN (6-10/10) Last Admin: 02/12/19 18:25 Dose: 2 tablet Atorvastatin Calcium (Lipitor) 20 mg PO QHS DAPHNEY Last Admin: 02/13/19 22:02 Dose: 20 mg Dextrose (D50w Syringe) 0 gm IV X1 PRN; Protocol PRN Reason: Hypoglycemia Enoxaparin Sodium (Lovenox) 40 mg SC DAILY@1000 DAPHNEY Last Admin: 02/14/19 09:42 Dose: 40 mg Furosemide (Lasix) 40 mg PO DAILY PRN PRN Reason: edema Gabapentin (Neurontin) 300 mg PO TIDCM [facility] Last Admin: 02/14/19 11:59 Dose: 300 mg Glucagon () 1 mg IM .X1 PRN PRN Reason: Hypoglycemia Sodium Chloride () 250 mls @ 15 mls/hr IV .[id number] PRN PRN Reason: SALINE FLUSH Last Admin: 02/10/19 20:24 Dose: 15 mls/hr Piperacillin Sod/Tazobactam (Sod 3.375 gm/ Sodium Chloride) 50 mls @ 12.5 mls/hr IV Q8 [facility] Last Admin: 02/14/19 06:31 Dose: 12.5 mls/hr Insulin Glargine (Lantus (Bkc)) 22 units SC QHS [facility] Last Admin: 02/13/19 22:02 Dose: 22 units Insulin Human Lispro (Humalog Kwikpen (Bk)) 0 unit SC ACHS [facility]; Protocol Last Admin: 02/14/19 12:02 Dose: 1 unit Linagliptin (Tradjenta) 5 mg PO DAILY [facility] Last Admin: 02/14/19 09:40 Dose: 5 mg Magnesium Hydroxide (Milk Of Magnesia) 30 ml PO DAILY PRN PRN PRN Reason: Constipation Morphine Sulfate () 2 - 4 mg IV Q4H PRN PRN PRN Reason: BREAKTHROUGH PAIN (>4/10) Last Admin: 02/11/19 10:55 Dose: 4 mg Nutritional Formula ([place] - [place] Flavor) 2 packet PO BIDCM [facility] Last Admin: 02/14/19 08:04 Dose: 2 packet Nystatin (Mycostatin Powder) 1 applic TOPICAL BID [facility]; Protocol Last Admin: 02/14/19 09:40 Dose: 1 applicatio Oxycodone HCl (Oxyir) 5 - 10 mg PO Q4H PRN PRN PRN Reason: MOD-SEVERE PAIN (4-10/10) Last Admin: 02/14/19 10:49 Dose: 10 mg Sodium Chloride () 5 - 15 ml IV UD PRN PRN Reason: SALINE FLUSH Medical Necessity - Tobacco Use Smoking Status: Former smoker Tobacco Use: Non-smoker Assessment/Plan All Active Problems Ulcer of right lower extremity with necrosis of muscle (Acute) Osteomyelitis of fibula (Acute) 1. 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 DM 2 with neuropathy/morbid obesity -Continue with his home oral regimen as well as his home insulin regimen -Also receiving sliding scale insulin -Continue with gabapentin 3. HTN/HLD/lymphedema -Blood pressures been stable -Continue with home Lasix and statin 4. Intertrigo -Continue with nystatin DVT: Lovenox Code Visit Inpatient E&M: 33089 Subs Hosp L2
--- NOTE | 2019-02-14 13:41 | CASEMGMT ---
Addendum entered by Abraham Wu 02/14/19 14:08: Call received from Ines @ [facility] @ [place]. Call back is [phone]. They are able to do start of care for evening dose- will plan on 8:30-9 pm to be @ pt's home. -GARCÍA HARRIS updated pt. Sister Sh[facility] to start care and be available for teaching per pt. -Pt to receive am dose and afternoon dose tomorrow prior to dc. Per Carloz, Pharmacy- can give dose @ 1 pm tomorrow. then will plan for dc home. Thony GAN Original Note: GARCÍA HARRIS Note: Call to [employer] @ [facility] who is handling case. She states they are working on financial information and will contact pt. GARCÍA HARRIS requested she also work out delivery time with pt. Anticipate dc tomorrow. Medication is being given @ [facility] @ [id number]. Time for first dose at home has not been established. -call to [facility] @ [place]. Message left for Ines explaining medication times being given @ [facility] and if they can do start of care @ 2pm or 10 pm depending on when pt is dc'd tomorrow. Thony ROCHEM
[2019-02-14 13:57] VITALS: BP 128/62; PULSE 85; RESP 18; TEMP 36.3; O2SAT 99
[2019-02-14 16:45] LABS: Bedside Glucose 205 mg/dL (70-110)
[2019-02-14 21:40] VITALS: BP 139/70; PULSE 82; RESP 18; TEMP 36.7; O2SAT 96
[2019-02-14] MEDS: Atorvastatin Calcium 20 MG Tablet PO (21:46)
[2019-02-14] MEDS: HYDROcodone Bitartrate/Apap 5/325 Tablet PO (21:49)
[2019-02-14 21:51] LABS: Bedside Glucose 169 mg/dL (70-110)
[2019-02-15 03:00] VITALS: BP 147/74; PULSE 87; RESP 18; TEMP 36.8; O2SAT 96
[2019-02-15] MEDS: oxyCODONE 5 MG Tablet PO ×3 (03:48→21:47)
[2019-02-15] MEDS: Insulin Lispro 100 UNIT/ML INSULN.PEN SC ×4 (06:41→21:45)
[2019-02-15 06:44] LABS: Absolute Lymphocyte Count 1.11 X10^3/ul (0.83-4.51); Absolute Neutrophil Count 7.7 X10^3/uL (2.0-7.7); Anion Gap 6 (5-15); BUN 18 mg/dL (7-18); BUN/Creat Ratio 24.8 RATIO (10-20); Basophil# 0.05 X10^3/uL; Basophil% 0.5 % (0-1); Calcium,Total 8.4 mg/dL (8.5-10.1); Chloride 104 mmol/L (98-107); Creatinine, Serum 0.73 mg/dL (0.70-1.30); EST Glomerular Filtration Rate 119 mL/min (>60); Eosinophil# 0.37 X10^3/uL; Eosinophils% 3.7 % (0-5); Est Glom Filt Rate - Afr Amer 144 mL/min (>60); Estimated Creatinine Clearance 144.09 ml/min; Glucose 165 mg/dL (74-106); Hematocrit 32.5 % (40-54); Hemoglobin 10.3 g/dl (13.0-16.5); Lymphocyte # 1.11 X10^3/ul (4.0); Mean Corp Hgb Conc 31.7 g/gl (32-36); Mean Corpuscular Hgb 27.1 pg (27.0-32.0); Mean Corpuscular Volume 85.5 fL (80-94); Mean Platelet Vol. 9.6 fl (6.2-12.0); Monocyte# 0.79 X10^3/uL; Monocyte% 7.8 % (0-10); Neutrophil # 7.72 X10^3/uL (2.7-7.7); Neutrophil % 76.7 % (47-70); Platelet Count 285 K/mm3 (150-450); Potassium 4.1 mmol/L (3.5-5.1); RBC Distribution Width CV 14.9 % (11.6-14.6); RBC Distribution Width SD 46.4 fl (35.1-43.9); Sodium Level 137 mmol/L (136-145); White Blood Count 10.1 K/mm3 (4.4-11.0)
[2019-02-15 06:46] LABS: POSITIVE COUNT NO; POSITIVE DIFFERENTIAL NO; POSITIVE MORPHOLOGY NO
[2019-02-15 06:51] LABS: Bedside Glucose 169 mg/dL (70-110)
[2019-02-15 08:45] VITALS: BP 158/92; PULSE 79; RESP 18; TEMP 36.3; O2SAT 98
[2019-02-15] MEDS: Enoxaparin 40 MG/0.4 ML Syringe SC (08:47)
[2019-02-15] MEDS: Nystatin Powder 15gm Bottle 1 APPLIC TOPICAL ×2 (08:47→21:49)
[2019-02-15] MEDS: Gabapentin 300 MG Capsule PO ×3 (08:47→17:41)
[2019-02-15] MEDS: LINAGLIPTIN 5 MG TABLET PO (08:48)
--- NOTE | 2019-02-15 08:49 | CASEMGMT ---
GARCÍA CM Assessment: Call to Eva @ [facility]. Cost for pt will be $30/day and Eva will contact pt for financials and delivery for today. Updated that pt will have first dose @ home this evening and delivery will need to be made prior to 6-7 pm. Eva states this would be no problem. -Pt to get dose @ hospital @ 1pm (for 2 pm dose) and then can dc home. -Call to [facility] to update that start of care will be this evening and pt's dosing will be Q6hrs at home. Spoke with Chris in Intake. Updated information faxed including wound nurse notes and script. Per chris, they will plan to go to home around 7 pm tonight. -pt care/will speak with patient when he is available. Thony WINTERS RN ACM
--- NOTE | 2019-02-15 09:45 | CASEMGMT ---
Social Work Note RN KIMBERLY Wu updated this worker that pt is now agreeable to SNF and would like TCU. ALEE placed a call to Denae in TCU. Per Denae pt exceeds weight limit on TCU and she is unable to accept pt. ALEE met with pt. ALEE introduced self and role at [facility]. Pt is alert and orientated x4. ALEE updated pt that TCU is unable to accept pt, provided pt with list of SNF in the area that accept pt's insurance and provided pt with Medicare ratings. Pt states he would like [facility]. ALEE explained referral process and pt will need pre-cert from insurance. Pt states understanding. ALEE faxed referral to Lisset at [facility] and placed a call to Lisset. Lisset states she will review referral. Plan: SNF pending acceptance and pre-cert Gifty Ramos DRY CLEANER HELPER, CRA
--- NOTE | 2019-02-15 10:12 | CASEMGMT ---
GARCÍA HARRIS Note: spoke with pt re: dc planning. Pt had reconsidered conversation yesterday re: SNF vs home and is requesting to go to SNF on dc. Pt states after speaking with his family, he feels it would be difficult for them. First choice is TCU; GARCÍA HARRIS let him know it would depend on bed availability. Pt has [facility] insurance- will give pt other options if needed. GARCÍA HARRIS gave pt support as decision to change dc plan to SNF was difficult, but pt does feel this is safer option for his care. -ALEE referral to ALEE Kaufman who called TCU and they are reviewing case. -call to Eva Wise to hold case for now as pt may go to SNF. -will call [facility] when precert is sent to [facility] for TCU. Thony WINTERS RN ACM
[2019-02-15 11:31] LABS: Bedside Glucose 182 mg/dL (70-110)
[2019-02-15 14:25] VITALS: BP 129/75; PULSE 84; RESP 18; TEMP 36.8; O2SAT 98
--- NOTE | 2019-02-15 15:30 | CASEMGMT ---
Social Work Note ALEE placed a call to Lisset at [facility] who states she is unable to accept pt. SW updated pt of this. Pt states that [facility] is the only SNF he would go to and states he would like to return home at discharge now and requests to be discharged tomorrow. SW informed pt that this worker will update RN KIMBERLY who has been working on arranging home going needs for pt. ALEE updated RN KIMBERLY Wu on pt wanting to discharge home now. Gifty Ramos MEDICAL BILLING COORDINATOR, WASH TEST CHECKER
--- NOTE | 2019-02-15 15:35 | PCM.PN.HOSP ---
Patient Problems: Active and Suspected Problems Osteomyelitis of fibula (Acute) Subjective: Doing well, no issues over night. Leg still with some pain, but manageable Vitals/I&O's: Vital Signs Temp Pulse Resp BP Pulse Ox 98.2 F 84 18 129/75 H 98 02/15/19 14:25 02/15/19 14:25 02/15/19 14:25 02/15/19 14:25 02/15/19 14:25 Oxygen Delivery Method Room Air Weight: 403 lb 14.189 oz Body Mass Index (BMI) 47.9 Intake and Output for Last 24 Hours 02/13/19 02/14/19 02/15/19 23:59 23:59 23:59 Intake Total 2664 / 2664 3647 / 3647 1200.6 / 1200.6 Output Total 3200 / 3200 2925 / 2925 1950 / 1950 Balance -536 / -536 722 / 722 -749.4 / -749.4 General: Alert, Oriented x3, Cooperative, No apparent distress HEENT: Atraumatic, PERRLA, EOMI, Normocephalic Oral: Moist Mucosa Neck: Supple, No JVD, Trachea Midline Lungs: Clear to auscultation, Normal air movement, No rhonchi, No wheeze, No rales Cardiovascular: Regular rate, Regular Rhythm, Normal S1, Normal S2, No murmurs Abdomen: Soft, Non Tender, Non-Distended, No Hepato-splenomegaly Extremities: Capillary Refill Less than 3 Seconds, Edema Skin: Ulcer/ Wound - Right lower extremity with Max bandage intact with wound VAC intact Neurological: Neuro grossly intact, Sensory exam intact to light touch and pain Psych/Mental Status: Normal Affect, Appropriate Microbiology Past 72 Hours 02/10/19 16:58 Bone - Other Gram Stain - Final 02/10/19 16:58 Bone - Other Wound Culture - Final Enterococcus faecalis Actinomyces species 02/10/19 16:58 Bone - Other Anaerobic Culture - Final Bacteroides ovatus Anaerobic cocci Prevotella bivia 02/10/19 16:58 Tissue - Other Gram Stain - Final 02/10/19 16:58 Tissue - Other Wound Culture - Final Enterococcus faecalis Staphylococcus aureus Actinomyces species 02/10/19 16:58 Tissue - Other Anaerobic Culture - Final Clostridium bifermentans Prevotella bivia 02/12/19 10:32 Blood Culture (Wb) - Anticubital Right Blood Culture - Preliminary No growth in 48 hours. 02/12/19 10:28 Blood Culture (Wb) - Anticubital Left Blood Culture - Preliminary No growth in 48 hours. Laboratory Results 02/14/19 16:38: POC Glucose 205 H 02/14/19 21:43: POC Glucose 169 H 02/15/19 06:10: WBC 10.1, RBC 3.80 L, Hgb 10.3 L, Hct 32.5 L, MCV 85.5, MCH 27.1, MCHC 31.7 L, RDW 14.9 H, RDW Differential 46.4 H, Plt Count 285, MPV 9.6, Immature Gran % (Auto) 0.300, Neut % (Auto) 76.7 H, Lymph % (Auto) 11.0 L, [place] % (Auto) 7.8, Eos % (Auto) 3.7, Baso % (Auto) 0.5, Absolute Neuts (auto) 7.7, Absolute Lymphs (auto) 1.11, Total Counted Not Reportable 02/15/19 06:10: Sodium 137, Potassium 4.1, Chloride 104, Carbon Dioxide 27.0, Anion Gap 6, BUN 18, Creatinine 0.73, Estim Creat Clear Calc 144.09, Est GFR (MDRD) Af Amer 144, Est GFR (MDRD) Non-Af 119, BUN/Creatinine Ratio 24.8 H, Glucose 165 H, Calcium 8.4 L 02/15/19 06:39: POC Glucose 169 H 02/15/19 11:20: POC Glucose 182 H Current Medications Acetaminophen (Tylenol) 650 mg PO Q6H PRN PRN PRN Reason: Mild Pain (1-3)/Temp > 100.7 F Hydrocodone Bitart/Acetaminophen ([place] 5mg-325mg) 2 tablet PO Q4H PRN PRN PRN Reason: SEVERE PAIN (6-10/10) Last Admin: 02/14/19 21:49 Dose: 2 tablet Atorvastatin Calcium (Lipitor) 20 mg PO QHS DAPHNEY Last Admin: 02/14/19 21:46 Dose: 20 mg Dextrose (D50w Syringe) 0 gm IV X1 PRN; Protocol PRN Reason: Hypoglycemia Enoxaparin Sodium (Lovenox) 40 mg SC DAILY@1000 DAPHNEY Last Admin: 02/15/19 08:47 Dose: 40 mg Furosemide (Lasix) 40 mg PO DAILY PRN PRN Reason: edema Gabapentin (Neurontin) 300 mg PO TIDCM [facility] Last Admin: 02/15/19 11:22 Dose: 300 mg Glucagon () 1 mg IM .X1 PRN PRN Reason: Hypoglycemia Sodium Chloride () 250 mls @ 15 mls/hr IV .[id number] PRN PRN Reason: SALINE FLUSH Last Admin: 02/10/19 20:24 Dose: 15 mls/hr Piperacillin Sod/Tazobactam (Sod 3.375 gm/ Sodium Chloride) 50 mls @ 12.5 mls/hr IV Q8 [facility] Last Admin: 02/15/19 14:26 Dose: 12.5 mls/hr Insulin Glargine (Lantus (Bk)) 22 units SC QHS [facility] Last Admin: 02/14/19 21:44 Dose: 22 units Insulin Human Lispro (Humalog Kwikpen ([facility])) 0 unit SC ACHS [facility]; Protocol Last Admin: 02/15/19 11:21 Dose: 1 unit Linagliptin (Tradjenta) 5 mg PO DAILY [facility] Last Admin: 02/15/19 08:48 Dose: 5 mg Magnesium Hydroxide (Milk Of Magnesia) 30 ml PO DAILY PRN PRN PRN Reason: Constipation Morphine Sulfate () 2 - 4 mg IV Q4H PRN PRN PRN Reason: BREAKTHROUGH PAIN (>4/10) Last Admin: 02/11/19 10:55 Dose: 4 mg Nutritional Formula ([place] - [place] Flavor) 2 packet PO BIDCM [facility] Last Admin: 02/15/19 08:47 Dose: 2 packet Nystatin (Mycostatin Powder) 1 applic TOPICAL BID [facility]; Protocol Last Admin: 02/15/19 08:47 Dose: 1 applicatio Oxycodone HCl (Oxyir) 5 - 10 mg PO Q4H PRN PRN PRN Reason: MOD-SEVERE PAIN (4-10/10) Last Admin: 02/15/19 11:17 Dose: 10 mg Sodium Chloride () 5 - 15 ml IV UD PRN PRN Reason: SALINE FLUSH Medical Necessity - Tobacco Use Smoking Status: Former smoker Tobacco Use: Non-smoker Assessment/Plan All Active Problems Ulcer of right lower extremity with necrosis of muscle (Acute) Osteomyelitis of fibula (Acute) 1. Right fibula osteomyelitis with chronic right lateral ankle ulcer -Failed outpatient antibiotic therapy and grew enterococcus faecalis as well as staph aureus that was methicillin sensitive -Plan will be to be discharged on IV Zosyn, he has PICC line in place and infectious disease wrote the prescription -He was to be discharged today however, he wanted to go to SNF so referrals were made, but then it was noticed that his weight was too high to be admitted to the SNF, so he is now to go home, but he wont go until tomorrow, because SW did not continue with home infusion when it was thought he would go to SNF -Appreciate podiatry and ID input -Plan will be to discharge home with home health tomorrow -He will likely need narcotics for wound VAC changes 2. DM 2 with neuropathy/morbid obesity -Continue with his home oral regimen as well as his home insulin regimen -Also receiving sliding scale insulin -Continue with gabapentin 3. HTN/HLD/lymphedema -Blood pressures been stable -Continue with home Lasix and statin 4. Intertrigo -Continue with nystatin DVT: Lovenox Code Visit Inpatient E&M: 11764 Subs Hosp L2
--- NOTE | 2019-02-15 15:44 | PN_ITS ---
Patient Problems: Active and Suspected Problems Osteomyelitis of fibula (Acute) Subjective: Doing well, no issues over night. Leg still with some pain, but manageable Vitals/I&O's: Vital Signs Temp Pulse Resp BP Pulse Ox 98.2 F 84 18 129/75 H 98 02/15/19 14:25 02/15/19 14:25 02/15/19 14:25 02/15/19 14:25 02/15/19 14:25 Oxygen Delivery Method Room Air Weight: 403 lb 14.189 oz Body Mass Index (BMI) 47.9 Intake and Output for Last 24 Hours 02/13/19 02/14/19 02/15/19 23:59 23:59 23:59 Intake Total 2664 / 2664 3647 / 3647 1200.6 / 1200.6 Output Total 3200 / 3200 2925 / 2925 1950 / 1950 Balance -536 / -536 722 / 722 -749.4 / -749.4 General: Alert, Oriented x3, Cooperative, No apparent distress HEENT: Atraumatic, PERRLA, EOMI, Normocephalic Oral: Moist Mucosa Neck: Supple, No JVD, Trachea Midline Lungs: Clear to auscultation, Normal air movement, No rhonchi, No wheeze, No rales Cardiovascular: Regular rate, Regular Rhythm, Normal S1, Normal S2, No murmurs Abdomen: Soft, Non Tender, Non-Distended, No Hepato-splenomegaly Extremities: Capillary Refill Less than 3 Seconds, Edema Skin: Ulcer/ Wound - Right lower extremity with Max bandage intact with wound VAC intact Neurological: Neuro grossly intact, Sensory exam intact to light touch and pain Psych/Mental Status: Normal Affect, Appropriate Microbiology Past 72 Hours 02/10/19 16:58 Bone - Other Gram Stain - Final 02/10/19 16:58 Bone - Other Wound Culture - Final Enterococcus faecalis Actinomyces species 02/10/19 16:58 Bone - Other Anaerobic Culture - Final Bacteroides ovatus Anaerobic cocci Prevotella bivia 02/10/19 16:58 Tissue - Other Gram Stain - Final 02/10/19 16:58 Tissue - Other Wound Culture - Final Enterococcus faecalis Staphylococcus aureus Actinomyces species 02/10/19 16:58 Tissue - Other Anaerobic Culture - Final Clostridium bifermentans Prevotella bivia 02/12/19 10:32 Blood Culture (Wb) - Anticubital Right Blood Culture - Preliminary No growth in 48 hours. 02/12/19 10:28 Blood Culture (Wb) - Anticubital Left Blood Culture - Preliminary No growth in 48 hours. Laboratory Results 02/14/19 16:38: POC Glucose 205 H 02/14/19 21:43: POC Glucose 169 H 02/15/19 06:10: WBC 10.1, RBC 3.80 L, Hgb 10.3 L, Hct 32.5 L, MCV 85.5, MCH 27.1, MCHC 31.7 L, RDW 14.9 H, RDW Differential 46.4 H, Plt Count 285, MPV 9.6, Immature Gran % (Auto) 0.300, Neut % (Auto) 76.7 H, Lymph % (Auto) 11.0 L, [place] % (Auto) 7.8, Eos % (Auto) 3.7, Baso % (Auto) 0.5, Absolute Neuts (auto) 7.7, Absolute Lymphs (auto) 1.11, Total Counted Not Reportable 02/15/19 06:10: Sodium 137, Potassium 4.1, Chloride 104, Carbon Dioxide 27.0, Anion Gap 6, BUN 18, Creatinine 0.73, Estim Creat Clear Calc 144.09, Est GFR (MDRD) Af Amer 144, Est GFR (MDRD) Non-Af 119, BUN/Creatinine Ratio 24.8 H, Glucose 165 H, Calcium 8.4 L 02/15/19 06:39: POC Glucose 169 H 02/15/19 11:20: POC Glucose 182 H Current Medications Acetaminophen (Tylenol) 650 mg PO Q6H PRN PRN PRN Reason: Mild Pain (1-3)/Temp > 100.7 F Hydrocodone Bitart/Acetaminophen ([place] 5mg-325mg) 2 tablet PO Q4H PRN PRN PRN Reason: SEVERE PAIN (6-10/10) Last Admin: 02/14/19 21:49 Dose: 2 tablet Atorvastatin Calcium (Lipitor) 20 mg PO QHS [facility]APHNEY Last Admin: 02/14/19 21:46 Dose: 20 mg Dextrose (D50w Syringe) 0 gm IV X1 PRN; Protocol PRN Reason: Hypoglycemia Enoxaparin Sodium (Lovenox) 40 mg SC DAILY@1000 DAPHNEY Last Admin: 02/15/19 08:47 Dose: 40 mg Furosemide (Lasix) 40 mg PO DAILY PRN PRN Reason: edema Gabapentin (Neurontin) 300 mg PO TIDCM [facility] Last Admin: 02/15/19 11:22 Dose: 300 mg Glucagon () 1 mg IM .X1 PRN PRN Reason: Hypoglycemia Sodium Chloride () 250 mls @ 15 mls/hr IV .[id number] PRN PRN Reason: SALINE FLUSH Last Admin: 02/10/19 20:24 Dose: 15 mls/hr Piperacillin Sod/Tazobactam (Sod 3.375 gm/ Sodium Chloride) 50 mls @ 12.5 mls/hr IV Q8 [facility] Last Admin: 02/15/19 14:26 Dose: 12.5 mls/hr Insulin Glargine (Lantus (Bk)) 22 units SC QHS [facility] Last Admin: 02/14/19 21:44 Dose: 22 units Insulin Human Lispro (Humalog Kwikpen ([facility])) 0 unit SC ACHS [facility]; Protocol Last Admin: 02/15/19 11:21 Dose: 1 unit Linagliptin (Tradjenta) 5 mg PO DAILY [facility] Last Admin: 02/15/19 08:48 Dose: 5 mg Magnesium Hydroxide (Milk Of Magnesia) 30 ml PO DAILY PRN PRN PRN Reason: Constipation Morphine Sulfate () 2 - 4 mg IV Q4H PRN PRN PRN Reason: BREAKTHROUGH PAIN (>4/10) Last Admin: 02/11/19 10:55 Dose: 4 mg Nutritional Formula ([place] - [place] Flavor) 2 packet PO BIDCM [facility] Last Admin: 02/15/19 08:47 Dose: 2 packet Nystatin (Mycostatin Powder) 1 applic TOPICAL BID [facility]; Protocol Last Admin: 02/15/19 08:47 Dose: 1 applicatio Oxycodone HCl (Oxyir) 5 - 10 mg PO Q4H PRN PRN PRN Reason: MOD-SEVERE PAIN (4-10/10) Last Admin: 02/15/19 11:17 Dose: 10 mg Sodium Chloride () 5 - 15 ml IV UD PRN PRN Reason: SALINE FLUSH Medical Necessity - Tobacco Use Smoking Status: Former smoker Tobacco Use: Non-smoker Assessment/Plan All Active Problems Ulcer of right lower extremity with necrosis of muscle (Acute) Osteomyelitis of fibula (Acute) 1. Right fibula osteomyelitis with chronic right lateral ankle ulcer -Failed outpatient antibiotic therapy and grew enterococcus faecalis as well as staph aureus that was methicillin sensitive -Plan will be to be discharged on IV Zosyn, he has PICC line in place and infectious disease wrote the prescription -He was to be discharged today however, he wanted to go to SNF so referrals were made, but then it was noticed that his weight was too high to be admitted to the SNF, so he is now to go home, but he wont go until tomorrow, because SW did not continue with home infusion when it was thought he would go to SNF -Appreciate podiatry and ID input -Plan will be to discharge home with home health tomorrow -He will likely need narcotics for wound VAC changes 2. DM 2 with neuropathy/morbid obesity -Continue with his home oral regimen as well as his home insulin regimen -Also receiving sliding scale insulin -Continue with gabapentin 3. HTN/HLD/lymphedema -Blood pressures been stable -Continue with home Lasix and statin 4. Intertrigo -Continue with nystatin DVT: Lovenox Code Visit Inpatient E&M: 12935 Subs Hosp L2
--- NOTE | 2019-02-15 15:54 | CASEMGMT ---
RN KIMBERLY Note: Per SW, SNF referrals were declined. Pt will need to return home. -call to Eva @ [facility] [place] to reinstate case. She will continue case with anticipated dc tomorrow, start of care around 7pm for pt's first IV dose. -Both [facility] and [facility] [place] supervisor rework will work on case and CM can call in am to verify. -Dr. Espinoza updated via text. -Nursing will give IV antibiotic early per pharmacy guideline as it requires 4 hours to complete. Thony NIEVESN RN ACM
[2019-02-15 17:45] LABS: Bedside Glucose 170 mg/dL (70-110)
[2019-02-15 20:46] VITALS: BP 147/87; PULSE 91; RESP 18; TEMP 37.2; O2SAT 95
[2019-02-15] MEDS: Atorvastatin Calcium 20 MG Tablet PO (21:50)
[2019-02-15 21:56] LABS: Bedside Glucose 178 mg/dL (70-110)
[2019-02-16] MEDS: oxyCODONE 5 MG Tablet PO ×3 (02:37→13:45)
[2019-02-16 02:40] VITALS: BP 156/84; PULSE 86; RESP 18; TEMP 37; O2SAT 95
[2019-02-16 06:10] LABS: Absolute Lymphocyte Count 1.65 X10^3/ul (0.83-4.51); Basophil# 0.07 X10^3/uL; Basophil% 0.6 % (0-1); Eosinophil# 0.33 X10^3/uL; Eosinophils% 2.8 % (0-5); Hematocrit 33.9 % (40-54); Hemoglobin 10.7 g/dl (13.0-16.5); Lymphocyte # 1.65 X10^3/ul (4.0); Lymphocyte % 13.9 % (19-41); Mean Corp Hgb Conc 31.6 g/gl (32-36); Mean Corpuscular Volume 85.4 fL (80-94); Mean Platelet Vol. 9.5 fl (6.2-12.0); Monocyte% 6.7 % (0-10); Neutrophil # 9.03 X10^3/uL (2.7-7.7); Neutrophil % 75.7 % (47-70); Platelet Count 350 K/mm3 (150-450); RBC Distribution Width CV 14.8 % (11.6-14.6); RBC Distribution Width SD 46.2 fl (35.1-43.9); Red Blood Count 3.97 M/mm3 (4.6-6.2); White Blood Count 11.9 K/mm3 (4.4-11.0)
[2019-02-16 06:11] LABS: Anion Gap 7 (5-15); BUN 21 mg/dL (7-18); BUN/Creat Ratio 29.6 RATIO (10-20); Calcium,Total 8.8 mg/dL (8.5-10.1); Chloride 104 mmol/L (98-107); Creatinine, Serum 0.71 mg/dL (0.70-1.30); EST Glomerular Filtration Rate 122 mL/min (>60); Est Glom Filt Rate - Afr Amer 148 mL/min (>60); Estimated Creatinine Clearance 148.15 ml/min; Glucose 162 mg/dL (74-106); POSITIVE COUNT NO; POSITIVE DIFFERENTIAL NO; POSITIVE MORPHOLOGY NO; Potassium 4.1 mmol/L (3.5-5.1); Sodium Level 138 mmol/L (136-145)
[2019-02-16] MEDS: Insulin Lispro 100 UNIT/ML INSULN.PEN SC ×2 (06:30→11:12)
[2019-02-16 06:35] LABS: Bedside Glucose 175 mg/dL (70-110)
--- NOTE | 2019-02-16 07:44 | PCM.DC ---
- Discharge Diagnoses Current Active Problems: Current Active and Chronic Problems Osteomyelitis of fibula (Acute) Osteomyelitis (Chronic) Ulcer of right lower extremity with fat layer exposed (Chronic) Ulcer of right foot with fat layer exposed (Chronic) Malnutrition (Chronic) Delayed wound healing (Chronic) Type 2 diabetes mellitus with diabetic polyneuropathy (Chronic) Localized edema (Chronic) You will use the following diet at home:: Regular Your food should be the consistency of: Regular Your liquids should be the consistency of: Regular/Thin Discharge Activity: Return to Normal Activity, Use Crutches, - Weight Bearing Status: No weight bearing - only touch down for transfers with right lower extremity Additional Activity Instructions:: keep pressure off of ulcer site by hanging outside of ankle over pillows to float the wound site in the air. Use donut pillow applied to mid leg. Keep wound vac intact on continuous to right upper leg site until follow up in clinic Thursday. (this will be changed weekly in clinic). Keep wound vac intact on continous rightt lateral ankle until follow up in clinic Thursday. (this will be changed q 3 days at home) Call your doctor if your incision/area has: Continuous Slow Oozing, Sudden Increased Bleeding, Increased Pain/ Swelling, Increased Redness, Foul Smelling Discharge, Swelling at the incision site Call your doctor if you observe: Fever of 101 or Higher, Calf discomfort, Uncontrolled pain Cleanse incision/area with: Keep Dressing Clean & Dry - right ankle: A wound vac 125 mmHg continuous, change every 3 days. Right leg: keep wound vac ([employer] via vac) on continuous and intact until follow up) Right foot ulcers: apply hydrogel every 3 days to toe ulcer sites as well as over adaptic sites on foot left leg: change every other day with hydrogel and adaptic Additional Dressing/Incision Instructions:: Antibiotic plan and home health will need to be confirmed prior to discharge. Allergies/Adverse Reactions: Allergies Penicillins [PCN] Allergy (Verified 02/10/19 13:45) Anaphylaxis Medications to take at Discharge Gabapentin [Neurontin] 300 mg PO DAILY 09/30/18 Insulin Glargine,Hum.rec.anlog [Lantus] 22 unit SQ QHS 09/30/18 Naproxen Sodium [Aleve] 440 mg PO BID 09/30/18 Sitagliptin Phosphate [Januvia] 100 mg PO DAILY 11/15/18 Oxycodone [Oxyir] 5 mg PO Q6H PRN PRN 01/19/19 Atorvastatin Calcium [Lipitor] 20 mg PO QHS 02/09/19 Furosemide [Lasix] 40 mg PO DAILY PRN 02/09/19 Oxycodone [Oxyir] 5 - 10 mg PO Q4H PRN PRN 4 Days #8 tab 02/16/19 Piperacil/Tazobactam [Zosyn] 3.375 gm IV Q8 vial 02/16/19 The following prescriptions were given: Oxycodone [Oxyir] 5 - 10 mg PO Q4H PRN PRN 4 Days #8 tab PRN Reason: Mod-Severe Pain (-08/25) Primary Care Physician: Yohan Medina DO [Primary Care Provider] - Please follow up with your Primary Care Physician in: 3-5 days Test Results: Test results from this visit will be discussed in further detail at your follow-up appointment, if applicable. Please Follow Up With: Teri Mcnally DPM When: Thursday at [facility]. Call to confirm appointment time. Please Follow Up With: Raad Salinas MD When: call to confirm follow up plan. he can be seen at [facility]
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
[2019-02-16] MEDS: Gabapentin 300 MG Capsule PO ×2 (08:18→11:09)
[2019-02-16] MEDS: Enoxaparin 40 MG/0.4 ML Syringe SC (08:18)
[2019-02-16] MEDS: LINAGLIPTIN 5 MG TABLET PO (08:19)
[2019-02-16] MEDS: Nystatin Powder 15gm Bottle 1 APPLIC TOPICAL (08:19)
[2019-02-16 08:24] VITALS: BP 143/84; PULSE 81; RESP 18; TEMP 36.6; O2SAT 98
--- NOTE | 2019-02-16 10:14 | CASEMGMT ---
As per physician, pt will need transport home today. SW met w/pt, pt is not able to get in and out of a car, and also cannot get up the 3 steps into his home as pt is non weight bearing at this time. SW explained will set up an ambulance, let pt know there is no guarantee that insurance will cover it, pt states understanding, states we gotta do what we gotta do. SW called [facility], set up 4pm ambulance. SW let RN and pt know, no further needs, pt home today. LATRICIA Liu, PLATE AND FRAME FILTER OPERATOR
--- NOTE | 2019-02-16 10:21 | CASEMGMT ---
Addendum entered by Gildardo Rucker 02/16/19 13:51: [facility] made aware pt discharging today and will need next dose IV atb's this PM @ 1900. They stated they will contact pt to make arrangements for delivery of medication. Original Note: GARCÍA HARRIS NOTE: Call placed to Ines @ [facility]. She was made aware pt will be discharged today and transportation has been arranged for b/w 3 & 4. She states a nurse is scheduled @ pt's home to administer next IV ATB dose @ 1900 today. Pt is asking if the [facility] nurse, Ana Cristina, can continue to follow/see him. Ines was made aware and she states Ana Cristina will not be available this evening for the 1900 dose but that Ana Cristina can follow his care thereafter. Pt made aware. Marisela WINTERS RN, CM
--- NOTE | 2019-02-16 10:46 | CASEMGMT ---
GARCÍA HARRIS NOTE: Call placed to [facility] customer service re: Insurance approval for wound vac. Confirmation received that the Wound Vac has been approved and has been released for delivery. forepart reducer was made aware pt is being discharged today. Marisela WINTERS RN CM
[2019-02-16 11:21] LABS: Bedside Glucose 180 mg/dL (70-110)
--- NOTE | 2019-02-16 13:06 | NURSING ---
DREW called - removed hospital wound vac. #[id number] confirmation number: [id number].. placed home wound vac # [id number].
--- NOTE | 2019-02-16 13:36 | NURSING ---
Home wound vac placed @1250, Charge nurse will contact [facility] with vac number
[2019-02-16 13:48] VITALS: BP 135/81; PULSE 89; RESP 18; TEMP 36.7; O2SAT 94
== END 2019-02-16 16:43 | disposition home health service (06) | DRG 464 ==
LOC: MS2 02-11 06:58
PROVIDERS: Family Medicine; Family Provider Family Medicine; PCP Family Medicine; Referring Provider Podiatrist; Visit Provider Family Medicine
PROC: 0JBQ0ZZ Excision of Right Foot Subcutaneous Tissue and Fascia, Open Approach (ICD-10-PCS; principal; 2019-02-10 14:45)
DX: M86.661 Other chronic osteomyelitis, right tibia and fibula (principal); Z68.42 Body mass index [BMI] 45.0-49.9, adult; L97.119 Non-pressure chronic ulcer of right thigh with unspecified severity; E78.5 Hyperlipidemia, unspecified; E66.01 Morbid (severe) obesity due to excess calories; B95.2 Enterococcus as the cause of diseases classified elsewhere; B95.61 Methicillin susceptible Staphylococcus aureus infection as the cause of diseases classified elsewhere; Z79.4 Long term (current) use of insulin; Z87.891 Personal history of nicotine dependence; E11.42 Type 2 diabetes mellitus with diabetic polyneuropathy; L30.4 Erythema intertrigo; I10 Essential (primary) hypertension; T25.091A Burn of unspecified degree of multiple sites of right ankle and foot, initial encounter; E11.69 Type 2 diabetes mellitus with other specified complication; L97.512 Non-pressure chronic ulcer of other part of right foot with fat layer exposed; L97.519 Non-pressure chronic ulcer of other part of right foot with unspecified severity; I73.9 Peripheral vascular disease, unspecified; Z89.411 Acquired absence of right great toe
CPT/HCPCS: 36415; 36569; 73600; 76000; 80048; 80202; 82962; 83036; 83735; 85025; 85652; 86140; 87040; 87070; 87075; 87077; 87102; 87186; 87205; 87206; 88304; 88305; 88311; 93005; 97110; 97162; 97530; 97802; 99406; J7040; J7050; J7120

== ENCOUNTER 2019-02-14 08:41 | Outpatient (RCR) | payer SELFPAY ==
[2019-02-14 01:29] VITALS: BP 125/97; PULSE 99; RESP 20; TEMP 36.7; BMI 51.7
[2019-02-24 13:05] VITALS: BP 162/93; PULSE 90; RESP 18; TEMP 36.6; BMI 51.7
--- NOTE | 2019-02-24 13:16 | WC ---
POSTOP VISIT. SPOKE W/ CM. WILL LEAVE ALL INTACT FOR DR WALLS TO REMOVE VAC, ETC...
--- NOTE | 2019-02-24 14:17 | PCM.WC.PN ---
(1) Ulcer of right foot with fat layer exposed Status: Chronic Code(s): L97.512 - Non-pressure chronic ulcer of other part of right foot with fat layer exposed (2) Ulcer of right lower extremity with necrosis of muscle Status: Chronic Code(s): L97.913 - Non-pressure chronic ulcer of unspecified part of right lower leg with necrosis of muscle (3) Osteomyelitis of fibula Status: Chronic Qualifiers: Laterality: right Code(s): M86.9 - Osteomyelitis, unspecified (4) Other specified peripheral vascular diseases Status: Chronic Code(s): I73.89 - Other specified peripheral vascular diseases (5) Malnutrition Status: Chronic Code(s): E46 - Unspecified protein-calorie malnutrition (6) Delayed wound healing Status: Chronic Code(s): T14.8XXD - Other injury of unspecified body region, subsequent encounter (7) Type 2 diabetes mellitus with diabetic polyneuropathy Status: Chronic Code(s): E11.42 - Type 2 diabetes mellitus with diabetic polyneuropathy (8) Localized edema Status: Chronic Code(s): R60.0 - Localized edema (9) Critical ischemia of lower extremity Status: Acute Code(s): I99.8 - Other disorder of circulatory system Type of Wound Chief Complaint: Ankle, leg, and foot ulcers History of Wound: This 53-year-old male with other comorbidities was seen in the wound care center for chronic nonhealing right foot, ankle, and leg ulcers. He had previous surgical debridement and vascular intervention performed with Dr. Hooks an outside facility (October 12, 2018 including a right femoral and posterior tibial artery bypass with a saphenous vein graft involvement). He also had procedure performed at [facility] on 02/10/2019 including subcutaneous excisional debridement and application of advanced wound care products of amnio fill and epi cord with wound VAC to the right leg and foot ulcer sites. He also had aggressive debridement of the lateral right ankle including exposed necrotic distal fibula bone and bone biopsy. His most recent MRI supports a diagnosis of osteomyelitis of the distal fibula. He was admitted after surgery for infection management including close watch, infectious disease consultation, and IV antibiotics. he denies current redness, odor, or increased warmth. He denies fever, chill, nausea, vomiting. He does report a slight odor and increased drainage to the outside of his right ankle. He denies pain. He has kept his dressings and wound VAC in place as advised. He denies claudication however does not walk a significant amount. He did obtain his lab work as ordered. He has new and worsening rest pain in reports he has to dangle his leg down all times the past 3 days. He is unaware that his toes are now cold and progressively discolored. Progress of Wound: status changes right lateral ankle. Improved right proximal leg. Stable right foot ulcers x2 - Physical Exam Vital Signs Temp Pulse Resp BP 98 F 90 18 162/93 H 02/24/19 13:05 02/24/19 13:05 02/24/19 13:05 02/24/19 13:05 General: Alert, Oriented x3, Cooperative HEENT: Atraumatic Extremities: No Calf Tenderness - Negative Costa sign bilateral, Diminished Peripheral Pulses, Edema - Moderate bilateral lower extremities, - - Pain with ulcer manipulation right lower extremity. There is no peripheral bogginess or fluctuance on palpation. The compartments of the right lower extremity remains soft. Skin: Ulcer/ Wound - The proximal medial right leg ulcer site has progressive granular tissue. The incision from the bypass surgery to the medial knee and thigh are fully epithelialized and healed at this time. The advance wound care product overlying Adaptic continues to incorporate into the distal medial right foot and dorsal right foot and this was left intact. The wound VAC was removed from the right lateral ankle and there as resolution of infection. There is no erythema, odor, or purulence. There is progressive intermittent granulation tissue. There is continued exposed bone with dark discoloration and continued progression of new eschar in and around the ulcer site. The dorsal second and third toe ulcer sites are fibrous and unhealthy. There is a progressive cyanosis cold temperature to touch with lack of capillary refill time to the right remaining toes. There is also delayed capillary refill time and maceration and this vascular status change to the lateral right foot and ankle. This is concern for progressive worsening and critical limb ischemia in combination with his subjective report of worsening rest pain and the need to dangle the foot., - - His skin is hairless and atrophic Wound Measurements and Assessment WC - Nurse 1 - General Ulcer Measurement Start: 02/24/19 13:05 Freq: Status: Active Protocol: Activity Type Activity Date Activity User E-Sign Co-Sign Detail Recorded Client Recorded Date Recorded By Document 02/24/19 13:05 [facility] [id number] 02/24/19 13:16 [facility] 02/24/19 13:05 [facility] Nurse 1 [Ulcer Assessment] 7-right 3rd toe -Combined with other wound No -Current Size (cm) - Length 0.1 -Current Size (cm) - Width 0.1 -Current Size (cm) - Depth 0.1 -Total Square Cm 0.01 6-right 2nd toe -Current Size (cm) - Length 0.1 -Current Size (cm) - Width 0.1 -Current Size (cm) - Depth 0.1 -Total Square Cm 0.01 5-right mid castorena -Current Size (cm) - Length 0.1 -Current Size (cm) - Width 0.1 -Current Size (cm) - Depth 0.1 -Total Square Cm 0.01 4-right superior med leg -Current Size (cm) - Length 0.1 -Current Size (cm) - Width 0.1 -Current Size (cm) - Depth 0.1 -Total Square Cm 0.01 3. R foot amp site 1st digit -Current Size (cm) - Length 0.1 -Current Size (cm) - Width 0.1 -Current Size (cm) - Depth 0.1 -Total Square Cm 0.01 2. R Dorsal foot -Current Size (cm) - Length 0.1 -Current Size (cm) - Width 0.1 -Current Size (cm) - Depth 0.1 -Total Square Cm 0.01 1. R lateral ankle -Current Size (cm) - Length 0.1 -Current Size (cm) - Width 0.1 -Current Size (cm) - Depth 0.1 -Total Square Cm 0.01 Musculoskeletal: No Tenderness to Palpation of Joints or Extremities, Muscle Wasting Neurological: - - Normal sensation is not noted with light touch Psych/Mental Status: Normal Affect, Appropriate Debridement Note Wound debrided: dorsal 2 toe Laterality: Right Type of Debridement: Selective debridement Anesthesia Used: 5% Lidocaine Gel Depth: Down to and including healthy tissue Percentage of wound debrided: 100 Instrument Used: #15 blade Tissue Removed: fibrous, devitalized subcutaneous, biofilm, slough Severity: Fat Layer Exposed Amount of bleeding with debridement: None Bleeding Controlled with: Pressure Patient tolerated procedure well - Additional Wound Wound debrided: dorsal third toe Laterality: Right Type of Debridement: Selective debridement Anesthesia Used: 5% Lidocaine Gel Depth: in the subcutaneous layer Percentage of wound debrided: 100 Instrument Used: #15 blade Tissue Removed: fibrous, devitalized subcutaneous, biofilm, slough Severity: Fat Layer Exposed Amount of bleeding with debridement: None Bleeding Controlled with: Pressure Patient tolerated procedure: Patient tolerated procedure well Assessment/Plan Assessment: 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 Dorsal right foot ulcer, grade 1 in no infection. Right lateral ankle ulcer, grade 3 with osteomyelitis. right medial proximal leg ulcer, grade 1 (at previous bypass site). Diabetes with neuropathy. Peripheral vascular disease with recent deteriorization/concern of critical limb ischemia. Delayed healing. Malnutrition Plan: I reviewed and discussed his case today. Selective debridement was performed as noted in the clinical panel to the 2 and 3 toes only. The advance wound care product and Adaptic was left to continue incorporating to the other right foot sites. The wound vacs were removed and no debridement was performed to the leg and lateral ankle ulcer sites. His continued tissue necrosis, cyanotic toes, progressive and worsening rest pain, lack of warmth and capillary fill time is noted. I am concerned that he has a status change with worsening perfusion. It is noted he had a patent bypass site that was checked just prior to his advance wound care product application and wound VAC application in the operating room. No tourniquets were utilized at that time. I recommend he follow-up with his vascular surgeon to see if there is any potential additional intervention and for status check. The patient understands he is at continued risk for limb loss. He is scheduled to see his vascular surgeon tomorrow at 2 PM in [place]. I recommend changing these dressings daily with Prepared Response and this was applied today. To continue IV antibiotics per infectious disease; he has a PICC line. His most recent labs were reviewed from February 21, 2019 including white blood cell count of 8.9, sedimentation rate of 90; this will be monitored while he is on IV antibiotics. Clinically his infection status is significantly improved compared to last week and this will be monitored very closely. His blood cultures were negative prior to discharge from the hospital. His bone biopsy demonstrated multi-organism growth that is adequately covered with the Zosyn. His bone biopsy demonstrated reactive and reparative changes. I also recommend nutritional supplementation optimize healing; Osito was recommended. To avoid pressure on the ulcer sites by not lying on the right lateral ankle site. I advised him to wear a surgical shoe to keep pressure off of his foot ulcer sites as well. . Pending the MRI results we will also consider if he is a candidate for hyperbaric oxygen therapy. To follow-up with the wound healing center in 1 week or call sooner if he has any questions or concerns.
== END 2019-03-15 08:42 | disposition home or self-care (01) ==
LOC: WC 08:41
PROVIDERS: Family Provider Family Medicine; PCP Family Medicine; Visit Provider Podiatrist
DX: E11.622 Type 2 diabetes mellitus with other skin ulcer (principal); E11.621 Type 2 diabetes mellitus with foot ulcer; L97.512 Non-pressure chronic ulcer of other part of right foot with fat layer exposed; E11.42 Type 2 diabetes mellitus with diabetic polyneuropathy; R60.0 Localized edema; E11.51 Type 2 diabetes mellitus with diabetic peripheral angiopathy without gangrene
CPT/HCPCS: 97597; 99212; G0463

== ENCOUNTER 2019-03-11 12:08 | Emergency (ER) | payer SELFPAY ==
[2019-03-11 12:08] VITALS: BMI 47.9
[2019-03-11 12:09] VITALS: BP 158/72; PULSE 90; RESP 20; TEMP 37.1; O2SAT 99; BMI 51.5
[2019-03-11 13:21] LABS: Absolute Lymphocyte Count 1.32 X10^3/ul (0.83-4.51); Absolute Neutrophil Count 8.5 X10^3/uL (2.0-7.7); Basophil# 0.06 X10^3/uL; Basophil% 0.5 % (0-1); Eosinophil# 0.46 X10^3/uL; Eosinophils% 4.2 % (0-5); Hematocrit 30.8 % (40-54); Hemoglobin 9.5 g/dl (13.0-16.5); Lymphocyte # 1.32 X10^3/ul (4.0); Mean Corp Hgb Conc 30.8 g/gl (32-36); Mean Corpuscular Hgb 25.7 pg (27.0-32.0); Mean Corpuscular Volume 83.5 fL (80-94); Mean Platelet Vol. 9.1 fl (6.2-12.0); Monocyte# 0.68 X10^3/uL; Monocyte% 6.2 % (0-10); Neutrophil # 8.49 X10^3/uL (2.7-7.7); Neutrophil % 76.9 % (47-70); Platelet Count 275 K/mm3 (150-450); RBC Distribution Width CV 16.2 % (11.6-14.6); RBC Distribution Width SD 49.1 fl (35.1-43.9); Red Blood Count 3.69 M/mm3 (4.6-6.2)
[2019-03-11 13:22] LABS: POSITIVE COUNT NO; POSITIVE DIFFERENTIAL NO; POSITIVE MORPHOLOGY NO
[2019-03-11 13:33] LABS: Anion Gap 6 (5-15); BUN 14 mg/dL (7-18); BUN/Creat Ratio 19.8 RATIO (10-20); Calcium,Total 8.8 mg/dL (8.5-10.1); Chloride 105 mmol/L (98-107); Creatinine, Serum 0.71 mg/dL (0.70-1.30); EST Glomerular Filtration Rate 123 mL/min (>60); Est Glom Filt Rate - Afr Amer 149 mL/min (>60); Estimated Creatinine Clearance 148.15 ml/min; Glucose 227 mg/dL (74-106); Potassium 4.1 mmol/L (3.5-5.1); Sodium Level 138 mmol/L (136-145)
--- NOTE | 2019-03-11 13:41 | PCA ---
CALLED [facility] FOR DR LEVY TO TALK TO DR DEWEY PABLO @1:40
[2019-03-11] MEDS: morphine 8 MG/ML Syringe IV (13:48)
--- NOTE | 2019-03-11 13:50 | PCA ---
DR PABLO CALLED BACK FOR DR LEVY @1:47
--- NOTE | 2019-03-11 13:54 | ED.VIS.GEN ---
History of Present Illness Chief Complaint: Lower Extremity Injury Informant: Patient, Family, - - Visiting nurse Onset: - - Within the past 3 days Context: Gradual Onset Timing: Continuous Quality: Multiple nonhealing wounds right lower extremity Location: Right lower extremity Current Severity: Moderate Maximum Severity: Moderate Worsened by: Peripheral arterial disease Relieved by: Nothing Associated Symptoms: no associated fever or chills. He does report pain. Narrative: Patient is a middle-aged male with significant past medical problems. He presents because home health nurse was concerned he has significant infection of his right foot. Dressing was removed. Patient states last dressing change was 3 days ago. His toes were not blue at that time. He did have a wound VAC which was removed. 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 Past Medical History - Allergies and Home Meds Allergies/Adverse Reactions: Allergies Penicillins [PCN] Allergy (Verified 03/11/19 12:15) Anaphylaxis Primary Care Physician: Yohan Medina DO [Primary Care Provider] - Prior records reviewed: Yes Surgical History: - Lives: Spouse/ Significant Other Smoking Status: Former smoker Alcohol: None Drugs: None - Family History Maternal Family History: Reports: - Paternal Family History: Reports: - Review of Systems General: Denies: Chills, Fever, Sweats Eyes: Denies: Visual changes - bilaterally, Diplopia ENT: Denies: Rhinorrhea, Sore throat Cardiovascular: Denies: Chest pain, Palpitations Respiratory: Denies: Dyspnea, Cough, Dyspnea on exertion Gastrointestinal: Denies: Abdominal pain, Nausea, Vomiting, Diarrhea, Melena, Hematochezia Genitourinary: Denies: Dysuria, Hematuria, Frequency Musculoskeletal: Reports: Swelling, Extremity Pain. Denies: Back pain Skin: Reports: Wounds - Chronic wounds right lower extremity (leg and foot). Denies: Rash Neurological: Denies: Headache, Weakness, Numbness Hematologic: Denies: Easy bruising, Easy bleeding Physical Exam Vital Signs/Narrative: Vital Signs Temp Pulse Resp BP Pulse Ox 03/11/19 12:09 98.8 F 90 20 H 158/72 H 99 Inital Vital Signs reviewed: Yes General: Well nourished, Well developed, Obese, No Acute Distress Head: Normocephalic, Atraumatic Eyes: Perrl, EOMI. Negative for: Pale conjunctiva, Scleral icterus ENT: Moist mucous membranes, No rhinorrhea Neck: Supple, Nontender, No lymphadenopathy, No JVD Cardiovascular: Regular rate, Regular rhythm, No murmurs, Normal S1, Normal S2 Respiratory: No distress, CTA bilaterally, Chest nontender Back: Nontender, Normal Inspection Extremities: Tenderness, Edema, - - Patient with purplish discoloration tip of second right toe. The right great toe has been amputated. There are numerous open wounds. There is mild erythema without induration, purulent drainage, lymphangitis and there is no popliteal or inguinal lymphadenopathy. There is no PT or DP pulses. There is monophasic flow. Skin: - - Numerous wounds leg and foot that are not infected Neurological: Alert, Oriented x3, Cranial nerves II-XII grossly intact, Normal Strength, Normal Sensation Psychological: Depressed Diagnostic/Tx/Re-eval Laboratory Results 03/11/19 03/11/19 13:10 13:10 WBC 11.0 RBC 3.69 L Hgb 9.5 L Hct 30.8 L MCV 83.5 MCH 25.7 L MCHC 30.8 L RDW 16.2 H RDW Differential 49.1 H Plt Count 275 MPV 9.1 Immature Gran % (Auto) 0.200 Neut % (Auto) 76.9 H Lymph % (Auto) 12.0 L [place] % (Auto) 6.2 Eos % (Auto) 4.2 Baso % (Auto) 0.5 Absolute Neuts (auto) 8.5 H Absolute Lymphs (auto) 1.32 Total Counted Not Reportable Sodium 138 Potassium 4.1 Chloride 105 Carbon Dioxide 27.0 Anion Gap 6 BUN 14 Creatinine 0.71 Estim Creat Clear Calc 148.15 Est GFR (MDRD) Af Amer 149 Est GFR (MDRD) Non-Af 123 BUN/Creatinine Ratio 19.8 Glucose 227 H Calcium 8.8 - Medical Decision Making Dressing was removed. Wounds were noted. No evidence of infection. Baseline blood work was obtained which reveals chronic anemia and hyperglycemia and diabetic. Since there is low patient will not require emergent transfer. Case was discussed with his vascular surgeon Dr. Steve Murphy. He is aware of the wounds. He agrees the discoloration is not an emergency. Will instruct patient to keep appointment with him for this coming March 14. ED Disposition - Plan for ED Patient: Disposition: Home or Assisted Living Diagnosis: Critical ischemia of lower extremity, Ulcer of right lower extremity with fat layer exposed Instructions: ED PVD Referrals: Yohan Medina DO [Primary Care Provider] - Additional Instructions: Continue wound care and keep appointment with your vascular surgeon scheduled for Thursday
[2019-03-11 14:02] VITALS: BP 128/88; PULSE 86; RESP 16; O2SAT 97
[2019-03-11 15:00] VITALS: BP 158/87; PULSE 87; RESP 16; O2SAT 95
== END 2019-03-11 15:00 | disposition home or self-care (01) ==
PROVIDERS: Emergency Provider Emergency Medicine; Family Provider Family Medicine; PCP Family Medicine
DX: I99.8 Other disorder of circulatory system (principal); L97.912 Non-pressure chronic ulcer of unspecified part of right lower leg with fat layer exposed; L97.913 Non-pressure chronic ulcer of unspecified part of right lower leg with necrosis of muscle; E11.42 Type 2 diabetes mellitus with diabetic polyneuropathy; F32.9 Major depressive disorder, single episode, unspecified; Z87.891 Personal history of nicotine dependence
CPT/HCPCS: 36592; 80048; 85025; 96374; 99284; J7030; A4216